=== PATIENT | female | born 1960 | race Caucasian/White ===

== ENCOUNTER 2018-02-04 06:33 | Emergency (ER) | payer OTHER ==
[~2018-02-04] VITALS: Ht 154.9 cm; Wt 48.5 kg
[2018-02-04 06:33] VITALS: BP 157/83
[~2018-02-04 06:33] MED LIST: LAMO100T5 PO; LEVO25TA4 PO; METO5TAB PO; MORP30TA83 PO; MULT1TAB52 PO; OXYC5CAP PO
--- NOTE | 2018-02-04 07:00 | RAD ---
PQRS Compliance Statement: One or more of the following individualized dose reduction techniques were utilized for this examination: 1. Automated exposure control 2. Adjustment of the mA and/or kV according to patient size 3. Use of iterative reconstruction technique CT HEAD WITHOUT CONTRAST History: Body numbness, stroke protocol, hx of stroke x 1, ? in year of stroke Comparison: CT head without contrast, December 02, 2017. Procedure: Axial images are obtained of the head from the skull base through the vertex without IV contrast. Findings: The ventricles and sulci are normal for the patient's age. No mass-effect, midline shift, hemorrhage, extra-axial fluid collection, or obvious acute infarction is identified. Basilar cisterns are patent. Bone windows demonstrate no acute calvarial abnormality. Moderate mucosal thickening left maxillary sinus. No air-fluid level. Mastoid air cells are aerated. Globes and orbits are intact. IMPRESSION: No acute intracranial abnormality. Findings discussed with PAN FERRO at 02/04/2018 6:56 AM. FOR INTERNAL CODING PURPOSES Critical result: RESULT CODE: (C) Electronically signed by: Gerald Echeverria MD (02/04/2018 6:56 AM) [id number]
[2018-02-04] MEDS: IV NORMAL SALINE 1,000ML 1,000 ML IV ONE (07:09)
[2018-02-04 07:27] LABS: BASO % 0 % (0-3); EOS # 0.2 x10^3/uL (0.0-0.7); EOS % 2 % (0-3); HEMATOCRIT 40.1 % (36.0-47.0); HEMOGLOBIN 13.7 g/dL (12.0-15.5); LYMPH # 2.3 x10^3/uL (1.0-4.8); LYMPH % 25 % (24-48); MEAN CORPUSCULAR HEMOGLOBIN 32 pg (25-35); MEAN CORPUSCULAR HGB CONC 34 g/dL (31-37); MEAN CORPUSCULAR VOLUME 95 fL (79-100); MONO # 0.8 x10^3/uL (0.0-1.1); MONO % 9 % (0-9); NEUT # 5.7 x10^3uL (1.8-7.7); NEUT % 63 % (31-73); PLATELET COUNT 412 x10^3/uL (140-400); RED BLOOD COUNT 4.22 x10^6/uL (3.50-5.40); RED CELL DISTRIBUTION WIDTH 15.1 % (11.5-14.5); WHITE BLOOD COUNT 8.9 x10^3/uL (4.0-11.0)
--- NOTE | 2018-02-04 07:27 | RAD ---
Chest AP portable at 0623: Reason for examination: Altered mental status. Comparison is made to previous study dated 12/01/2017. The heart size is normal. Mediastinum is unremarkable. Lung lin are clear. No acute bony abnormalities are seen. Impression: No acute cardiopulmonary disease. Electronically signed by: Tsering Alonzo MD (02/04/2018 7:23 AM) [facility]
[2018-02-04] MEDS ORDERED: MORPHINE SULFATE 2 MG/ML DISP.SYRIN. ONE (07:34)
[2018-02-04] MEDS: diphenhydrAMINE 50 MG/ML VIAL IVP ONE (07:38)
[2018-02-04] MEDS: MORPHINE SULFATE 2 MG/ML DISP.SYRIN. IV ONE (07:38)
[2018-02-04 07:42] LABS: ALBUMIN 3.8 g/dL (3.4-5.0); ALBUMIN/GLOBULIN RATIO 1.3 (1.0-1.7); CREATININE 0.9 mg/dL (0.6-1.0); POTASSIUM 3.7 mmol/L (3.5-5.1); TOTAL BILIRUBIN 0.2 mg/dL (0.2-1.0); TOTAL PROTEIN 6.8 g/dL (6.4-8.2)
[2018-02-04 07:52] LABS: BILIRUBIN,URINE NEG (NEG); CLARITY,URINE CLEAR; COLOR,URINE YELLOW; GLUCOSE,URINE NEG (NEG)
[2018-02-04 07:53] LABS: BACTERIA,URINE 0 /HPF (0-FEW); NITRITE,URINE NEG (NEG); RBC,URINE OCC /HPF (0-2); SQUAMOUS EPITHELIAL CELL,UR OCC /LPF; UROBILINOGEN,URINE 0.2 mg/dL (0.2 mg/dL); WBC,URINE 0 /HPF (0-4)
[2018-02-04 07:58] LABS: AMPHETAMINE/METHAMPHETAMINE NEG (NEG); BARBITURATES POS (NEG); BENZODIAZEPINES NEG (NEG); CANNABINOIDS NEG (NEG); COCAINE NEG (NEG); METHADONE NEG (NEG); OPIATES POS (NEG); PHENCYCLIDINE NEG (NEG)
--- NOTE | 2018-02-04 08:25 | PHYS DOC ---
Past History Past Medical History: Anxiety, CVA, Hypertension, Other Past Surgical History: Cholecystectomy, Other Alcohol Use: None Drug Use: None Adult General Chief Complaint Chief Complaint: WEAKNESS/GENERALIZED HPI HPI 57-year-old female presents with altered mental status. The patient was last known well at 10 PM last night. When she woke up at 5 AM this morning she had bowel incontinence, slurred speech, and lack of coordination. Her who accompanies her states that she had multiple episodes of loose bowel and was unable to get to the toilet. The patient had difficulty standing. He states that her speech was garbled and impossible to understand. The patient is on narcotic pain medications. The states that the last oxycodone that she took was last night. She also took amitriptyline at 5 or 6 PM last night. He does not believe she is taken any medication since that time. He was concerned about the possibility of hydrocodone overdose so he gave her 4 mg of Narcan. She still had altered mental status and lack of bowel control. Her symptoms have improved by the time she got to the hospital. She tells me that she remembers some of the episode but not all the details. She did not notice the change in speech. She denies any additional drug use. At this time, she tells me that she feels "itchy and wants to move constantly". She has not had symptoms like this before. Her only other complaint is recent skin pruritus. She wonders if she is getting bit by something. She has excoriations on her bilateral blood extremities and lower legs. Her does not have these bites. She denies fever or chills. She was feeling well prior to this episode. She has a long history of stomach issues including multiple bowel movements daily. History of gastric bypass. Review of Systems Review of Systems Constitutional: Denies fever or chills [] Eyes: Denies change in visual acuity, redness, or eye pain [] HENT: Denies nasal congestion or sore throat [] Respiratory: Denies cough or shortness of breath [] Cardiovascular: No additional information not addressed in HPI [] GI: Bowel incontinence, loose stools[] : Denies dysuria or hematuria [] Musculoskeletal: Denies back pain or joint pain [] Integument: Denies rash or skin lesions [] Neurologic: Altered mental status, slurred speech, lack of coordination[] Endocrine: Denies polyuria or polydipsia [] All other systems were reviewed and found to be within normal limits, except as documented in this note. Current Medications Current Medications Current Medications Medications (Trade) Dose Ordered Sig/Anai Start Time Stop Time Status Last Admin Dose Admin Sodium Chloride 1,000 ml @ 1,000 mls/hr 1X ONCE 02/04/18 07:15 02/04/18 08:14 02/04/18 07:09 1,000 MLS/HR Allergies Allergies Allergies Coded Allergies Type Severity Reaction Last Updated Verified No Known Allergies Allergy Unknown 12/01/17 Yes Physical Exam Physical Exam Constitutional: Well developed, well nourished, no acute distress, non-toxic appearance. Fidgety. [] HENT: Normocephalic, atraumatic, bilateral external ears normal, oropharynx moist, no oral exudates, nose normal. [] Eyes: PERRLA, EOMI, conjunctiva normal, no discharge. [] Neck: Normal range of motion, no tenderness, supple, no stridor. [] Cardiovascular:Heart rate regular rhythm, no murmur [] Lungs & Thorax: Bilateral breath sounds clear to auscultation [] Abdomen: Bowel sounds normal, soft, no tenderness, no masses, no pulsatile masses. [] Skin: Excoriations on the bilateral upper extremities and lower extremities. No obvious insect bites.[] Back: No tenderness, no CVA tenderness. [] Extremities: No tenderness, no cyanosis, no clubbing, ROM intact, no edema. [] Neurologic: Alert and oriented X 3, moves all extremities, able to stand and ambulate, speech appears normal, answers questions appropriately.[] Psychologic: Affect anxious, judgement normal, mood normal. [] EKG EKG Sinus rhythm, rate 98, normal axis, no ST elevations or depressions.[] Radiology/Procedures Radiology/Procedures [] Impressions: PQRS Compliance Statement: One or more of the following individualized dose reduction techniques were utilized for this examination: 1. Automated exposure control 2. Adjustment of the mA and/or kV according to patient size 3. Use of iterative reconstruction technique CT HEAD WITHOUT CONTRAST History: Body numbness, stroke protocol, hx of stroke x 1, ? in year of stroke Comparison: CT head without contrast, December 02, 2017. Procedure: Axial images are obtained of the head from the skull base through the vertex without IV contrast. Findings: The ventricles and sulci are normal for the patient's age. No mass-effect, midline shift, hemorrhage, extra-axial fluid collection, or obvious acute infarction is identified. Basilar cisterns are patent. Bone windows demonstrate no acute calvarial abnormality. Moderate mucosal thickening left maxillary sinus. No air-fluid level. Mastoid air cells are aerated. Globes and orbits are intact. IMPRESSION: No acute intracranial abnormality. Findings discussed with PAN FERRO at 02/04/2018 6:56 AM. FOR INTERNAL CODING PURPOSES Critical result: RESULT CODE: (C) Electronically signed by: Gerald Echeverria MD (02/04/2018 6:56 AM) [facility] DICTATED AND SIGNED BY: GERALD ECHEVERRIA MD DATE: 02/04/18650 CC: PAN FERRO DO; GAIL,STAFF Chest AP portable at 0623: Reason for examination: Altered mental status. Comparison is made to previous study dated 12/01/2017. The heart size is normal. Mediastinum is unremarkable. Lung lin are clear. No acute bony abnormalities are seen. Impression: No acute cardiopulmonary disease. Electronically signed by: Bettina Car MD (02/04/2018 7:23 AM) [facility] DICTATED AND SIGNED BY: BETTINA CAR MD DATE: 02/04/18720 CC: PAN FERRO DO; GAIL,STAFF Course & Med Decision Making Course & Med Decision Making Pertinent Labs and Imaging studies reviewed. (See chart for details) The patient was taken to the CT scanner as a code stroke based on reported history. The head CT is negative. During my exam, she was able to answer all of my questions. She is moving all extremities. There is no sign of weakness. She does have random excoriations on her arms and legs. I do not see any on her trunk. It's hard to say if these started from insect bites or if she is itching for another reason. It is possible that her restlessness could be due to Reglan , amitriptyline, or withdrawal from opiates. She is on chronic pain medication and the Narcan could be inducing some withdrawal symptoms. Reglan or amitriptyline are also known to cause restlessness. The patient only takes 25 mg of amitriptyline which would not typically cause the rest of her symptoms, but it is possible. Patient had urinary retention in the ED. We placed a Viera and drained 2 L. The patient has had no recent changes in medications. I asked again how much amitriptyline the patient takes an states only 25 mg a day. The patient's urine drug screen was positive for opiates as expected but also barbiturates. The patient is not on any prescription barbiturates. Her labs are unremarkable. Her urinalysis is negative for infection. Her EKG is unremarkable. Her chest x-ray is unremarkable. [] Dragon Disclaimer Dragon Disclaimer This electronic medical record was generated, in whole or in part, using a voice recognition dictation system. Departure Departure: Referrals: NON,STAFF (PCP) PAN FERRO DO Feb 04, 2018 08:25
--- NOTE | 2018-02-04 15:55 | EKG ---
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
== END 2018-02-04 10:00 | disposition home or self-care (01) ==
LOC: ER 06:33
DX: R41.82 Altered mental status, unspecified (principal); R15.9 Full incontinence of feces; R47.81 Slurred speech; T40.2X5A Adverse effect of other opioids, initial encounter; T43.015A Adverse effect of tricyclic antidepressants, initial encounter; F41.9 Anxiety disorder, unspecified; I10 Essential (primary) hypertension; Z86.73 Personal history of transient ischemic attack (TIA), and cerebral infarction without residual deficits; Y92.89 Other specified places as the place of occurrence of the external cause
CPT/HCPCS: 36415; 51702; 70450; 71045; 80053; 80307; 81001; 84484; 85025; 87086; 93005; 96361; 96374; 96375; 99285; J1200; J2270; J7030

== ENCOUNTER 2018-03-07 12:05 | Emergency (ER) | payer OTHER ==
[~2018-03-07] VITALS: Ht 154.9 cm; Wt 47.6 kg
[2018-03-07] MEDS ORDERED: KETOROLAC 60 MG/2 ML VIAL. IM ONE (12:45)
--- NOTE | 2018-03-07 13:33 | RAD ---
CT CERVICAL SPINE WO CONTRAST, CT HEAD AND MAXILLOFACIAL WO Indication: fall two days ago Exposure: One or more of the following individualized dose reduction techniques were utilized for this examination: 1. Automated exposure control 2. Adjustment of the mA and/or kV according to patient size 3. Use of iterative reconstruction technique. Comparison: Prior head CT February 04, 2018. Contrast: None HEAD: Posterior fossa is unremarkable. No evidence of acute intracranial hemorrhage or abnormal extra-axial fluid collection. No evidence of mass effect or midline shift. Ventricles are symmetric in size and configuration. Raymundo-white matter distinction is intact. Visualized orbits are unremarkable. Moderate mucosal thickening left maxillary sinus. No acute calvarial abnormality. Impression:Negative for acute intracranial hemorrhage or mass effect. FACIAL BONES: Nasal bone: Intact Orbital floors: Intact Bones: No evidence of acute or displaced fracture although a specific point of impact is not indicated. Visualized sinuses: Moderate mucosal thickening left maxillary sinus. Globes/Orbits: Unremarkable. Mandible/Maxilla: Dental disease is identified with dental caries. Greatest in the right maxilla molars. There is also mild periapical lucency, at the maxilla bilaterally. Soft tissue: Soft tissue swelling and fatty stranding in the left facial region and extending into the neck may be due to contusion or inflammation. IMPRESSION: 1. No evidence of an acute fracture. 2. Periodontal disease. 3. Left facial inflammation or bruising. 4. Maxillary sinus disease. CERVICAL SPINE: C1 ring: Intact Cervico-occipital junction: Intact C1-C2 relationship: Within normal limits Fracture: No acute fracture identified. Spondylosis: No significant degenerative change. Alignment: Reversal of the normal cervical lordosis, can be due to muscle spasm or positioning. Facets: No evidence of perched or locked facet. Prevertebral soft tissues: No significant swelling or hematoma Thyroid: Symmetric Lung apices: Clear Impression: No evidence of acute fracture or subluxation. Electronically signed by: Neno Montoya MD (03/07/2018 1:30 PM) [facility]
[2018-03-07 13:50] VITALS: BP 138/67
--- NOTE | 2018-03-07 13:52 | PHYS DOC ---
Past History Past Medical History: Anxiety, CVA, Hypertension, Other Past Surgical History: Cholecystectomy, Other Alcohol Use: None Drug Use: None Adult General Chief Complaint Chief Complaint: MECHANICAL FALL HPI HPI Patient is a 57 year old female who presents with coming over fall and facial injury. Patient state she trapped on her dog leash at 3 AM yesterday morning and had a fall on hard wood floor and landed on the left side of her face. Patient denies loss of consciousness. Patient complaining of facial edema and pain and also complaining of headache, neck pain, body ache, nausea, confusion. Patient denies focal neuro deficit fever and chills, vomiting, urine and bowel incontinence. Patient to take her home pain medication for back pain as Excedrin Tylenol with improvement of her pain. Patient does not remember her last tetanus shot but does not want to have immunization in ER. Review of Systems Review of Systems Constitutional: Denies fever or chills [] Eyes: Denies change in visual acuity, redness, or eye pain [] HENT: Denies nasal congestion or sore throat [] Respiratory: Denies cough or shortness of breath [] Cardiovascular: No additional information not addressed in HPI [] GI: Denies abdominal pain, nausea, vomiting, bloody stools or diarrhea [] : Denies dysuria or hematuria [] Musculoskeletal: Denies back pain or joint pain , reports neck pain and myalgia Integument: Denies rash or skin lesions [] Neurologic: Reports headache, denies focal weakness or sensory changes [] Endocrine: Denies polyuria or polydipsia [] All other systems were reviewed and found to be within normal limits, except as documented in this note. Current Medications Current Medications Current Medications Medications (Trade) Dose Ordered Sig/[facility] Start Time Stop Time Status Last Admin Dose Admin Ketorolac Tromethamine (Toradol Im) 60 mg 1X ONCE 03/07/18 12:45 03/07/18 12:46 DC 03/07/18 12:45 60 MG Allergies Allergies Allergies Coded Allergies Type Severity Reaction Last Updated Verified No Known Allergies Allergy Unknown 12/01/17 Yes Physical Exam Physical Exam Constitutional: Well developed, well nourished, mild distress, non-toxic appearance. [] HENT: Normocephalic, left facial mild edema and tenderness without deformity or ecchymosis, bilateral external ears normal, oropharynx moist, no oral exudates, nose normal. [] Eyes: PERRLA, EOMI, conjunctiva normal, no discharge. [] Neck: Normal range of motion, no tenderness, supple, no stridor. [] Cardiovascular:Heart rate regular rhythm, no murmur [] Lungs & Thorax: Bilateral breath sounds clear to auscultation [] Abdomen: Bowel sounds normal, soft, no tenderness, no masses, no pulsatile masses. [] Skin: Warm, dry, no erythema, no rash. [] Back: No tenderness, no CVA tenderness. [] Extremities: No tenderness, no cyanosis, no clubbing, ROM intact, no edema. [] Neurologic: Alert and oriented X 3, normal motor function, normal sensory function, no focal deficits noted. [] Psychologic: Affect normal, judgement normal, mood normal. [] Current Patient Data Vital Signs Vital Signs Date Time Temp Pulse Resp B/P (MAP) Pulse Ox O2 Delivery O2 Flow Rate FiO2 03/07/18 12:31 98.8 96 22 94 Room Air EKG EKG [] Radiology/Procedures Radiology/[place] [address] IMAGING REPORT Signed PATIENT: FRANTZ JOE ACCOUNT: [id number] : 1960 LOCATION: ER AGE: 57 SEX: F EXAM STATUS: REG ER ORD. PHYSICIAN: TONI VAZQUEZ MD REASON: fall PROCEDURE: CT CERVICAL SPINE WO CONTRAST CT CERVICAL SPINE WO CONTRAST, CT HEAD AND MAXILLOFACIAL WO Indication: fall two days ago Exposure: One or more of the following individualized dose reduction techniques were utilized for this examination: 1. Automated exposure control 2. Adjustment of the mA and/or kV according to patient size 3. Use of iterative reconstruction technique. Comparison: Prior head CT February 04, 2018. Contrast: None HEAD: Posterior fossa is unremarkable. No evidence of acute intracranial hemorrhage or abnormal extra-axial fluid collection. No evidence of mass effect or midline shift. Ventricles are symmetric in size and configuration. Raymundo-white matter distinction is intact. Visualized orbits are unremarkable. Moderate mucosal thickening left maxillary sinus. No acute calvarial abnormality. Impression:Negative for acute intracranial hemorrhage or mass effect. FACIAL BONES: Nasal bone: Intact Orbital floors: Intact Bones: No evidence of acute or displaced fracture although a specific point of impact is not indicated. Visualized sinuses: Moderate mucosal thickening left maxillary sinus. Globes/Orbits: Unremarkable. Mandible/Maxilla: Dental disease is identified with dental caries. Greatest in the right maxilla molars. There is also mild periapical lucency, at the maxilla bilaterally. Soft tissue: Soft tissue swelling and fatty stranding in the left facial region and extending into the neck may be due to contusion or inflammation. IMPRESSION: 1. No evidence of an acute fracture. 2. Periodontal disease. 3. Left facial inflammation or bruising. 4. Maxillary sinus disease. CERVICAL SPINE: C1 ring: Intact Cervico-occipital junction: Intact C1-C2 relationship: Within normal limits Fracture: No acute fracture identified. Spondylosis: No significant degenerative change. Alignment: Reversal of the normal cervical lordosis, can be due to muscle spasm or positioning. Facets: No evidence of perched or locked facet. Prevertebral soft tissues: No significant swelling or hematoma Thyroid: Symmetric Lung apices: Clear Impression: No evidence of acute fracture or subluxation. Electronically signed by: Neno Montoya MD (03/07/2018 1:30 PM) [facility] DICTATED AND SIGNED BY: NENO MONTOYA MD DATE: 03/07/18 131 CC: KUNAL LOUIS; TONI VAZQUEZ MD ~ Course & Med Decision Making Course & Med Decision Making Pertinent Imaging studies reviewed. (See chart for details) evaluation of patient in ER showed 57-year-old male patient with a fall and injury to left side of face. Patient had left facial edema without ecchymosis or deformity. Patient had blood pressure of 156/99 at arrival to ER without history of hypertension that gradually decreased to 130s/60s. Patient instructed to record her blood pressure and follow up with her primary care physician with an scheduled appointment tomorrow. Patient treated with Toradol and felt better. Patient does not want pain medication and states she has pain medication for back pain at home. CT of head, cervical spine and facial bones did not show sign of acute problem except for accidental finding of maxillary sinusitis and periodontal disease. Patient psychiatric to quit smoking and continue her home pain medication. Dragon Disclaimer Dragon Disclaimer This electronic medical record was generated, in whole or in part, using a voice recognition dictation system. Departure Departure: Impression: Primary Impression: Facial contusion Additional Impressions: Concussion Head injury Fall at home Tobacco abuse Tobacco abuse counseling Elevated blood pressure reading without diagnosis of hypertension Disposition: HOME, SELF-CARE (@1349) Condition: IMPROVED Referrals: KUNAL LOUIS (PCP) Patient Instructions: Concussion and Brain Injury, Facial or Scalp Contusion, Fall Prevention and Home Safety, Smoking Cessation, Tips For Success Additional Instructions: Apply ice on the affected area Follow-up with your primary care physician as scheduled tomorrow Return to ER if not getting better Continue home pain medication Record her blood pressure and follow-up with your primary care physician Problem Qualifiers TONI VAZQUEZ MD Mar 07, 2018 13:52
== END 2018-03-07 13:55 | disposition home or self-care (01) ==
LOC: ER 12:05
DX: S06.0X0A Concussion without loss of consciousness, initial encounter (principal); S00.83XA Contusion of other part of head, initial encounter; M54.2 Cervicalgia; I10 Essential (primary) hypertension; F41.9 Anxiety disorder, unspecified; Z86.73 Personal history of transient ischemic attack (TIA), and cerebral infarction without residual deficits; Z72.0 Tobacco use; Z71.6 Tobacco abuse counseling; W18.30XA Fall on same level, unspecified, initial encounter; Y93.89 Activity, other specified; Y92.098 Other place in other non-institutional residence as the place of occurrence of the external cause; Y99.8 Other external cause status
CPT/HCPCS: 70450; 70486; 72125; 96372; 99284; J1885

== ENCOUNTER 2018-05-04 16:26 | Observation (INO) | payer OTHER ==
[~2018-05-04] VITALS: Ht 154.9 cm; Wt 47.7 kg
[2018-05-04 16:56] LABS: BASO % 1 % (0-3); EOS # 0.2 x10^3/uL (0.0-0.7); EOS % 3 % (0-3); HEMATOCRIT 39.8 % (36.0-47.0); HEMOGLOBIN 13.2 g/dL (12.0-15.5); LYMPH # 1.7 x10^3/uL (1.0-4.8); LYMPH % 33 % (24-48); MEAN CORPUSCULAR HEMOGLOBIN 32 pg (25-35); MEAN CORPUSCULAR HGB CONC 33 g/dL (31-37); MEAN CORPUSCULAR VOLUME 97 fL (79-100); MONO # 0.4 x10^3/uL (0.0-1.1); MONO % 7 % (0-9); NEUT # 2.8 x10^3uL (1.8-7.7); NEUT % 56 % (31-73); PLATELET COUNT 322 x10^3/uL (140-400); RED BLOOD COUNT 4.11 x10^6/uL (3.50-5.40); RED CELL DISTRIBUTION WIDTH 15.3 % (11.5-14.5); WHITE BLOOD COUNT 5.1 x10^3/uL (4.0-11.0)
[2018-05-04] MEDS ORDERED: IV NORMAL SALINE 1,000ML 1,000 ML IV SCH (17:00)
[2018-05-04 17:08] LABS: CALCIUM 8.8 mg/dL (8.5-10.1); DIRECT BILIRUBIN 0.1 mg/dL (0.0-0.2); GFR 57.6; MAGNESIUM 2.3 mg/dL (1.8-2.4); TOTAL BILIRUBIN 0.2 mg/dL (0.2-1.0); TOTAL PROTEIN 7.4 g/dL (6.4-8.2)
--- NOTE | 2018-05-04 17:17 | RAD ---
PQRS Compliance statement: One or more of the following individualized dose reduction techniques were utilized for this examination: 1. Automated exposure control. 2. Adjustment of the mA and/or kV according to patient size. 3. Use of iterative reconstruction technique. Indication:DIZZINESS, EXPRESSED APHASIA. HX OF RECENT STROKE TECHNIQUE: CT head without IV contrast COMPARISON:03/07/2018 FINDINGS: No pathologic extra-axial or intra-axial fluid collection. The ventricles and basal cisterns are within normal limits. No acute intracranial bleed. No focal loss of lomax-white differentiation. The visualized orbits are within normal limits. No suspicious calvarial lesion. Visualized paranasal sinuses and mastoid air cells are clear. IMPRESSION: No acute intracranial process. If concern for acute ischemic stroke is high, please consider MRI brain. Electronically signed by: Rafa Venegas DO (05/04/2018 5:13 PM) [facility]
[2018-05-04] MEDS ORDERED: ASPIRIN 325 MG TABLET PO ONE (17:45)
--- NOTE | 2018-05-04 17:51 | PHYS DOC ---
Past History Past Medical History: Anxiety, CVA, Hypertension, Other Past Surgical History: Cholecystectomy, Hysterectomy, Oophorectomy, Other Alcohol Use: None Drug Use: None Adult General Chief Complaint Chief Complaint: NEURO SYMPTOMS/DEFICITS [facility] HPI Patient is a 57-year-old female who presents with a few day history of dizziness , forgetfulness and expressive aphasia. Patient's indicates that symptoms have just been progressively worsening. He states that the other night they were trying to go out to dinner and she kept going into the bedroom with intention to get dressed but would come back out, having forgotten to get dressed. He states that it took almost an hour and a half for patient to actually get dressed for dinner. He states that she has also been having a difficult time finding specific words. Patient indicates that she has been feeling very off balance and patient and indicate the symptoms have gotten a lot worse throughout today. Patient states that she just feels like she is going to fall. She denies any lateralizing weakness. She also indicates that she is having difficulty with coordination. She states that she is able to grasp things without difficulty but when she goes to set them down, things are not set down where she is intended and sometimes they dropped to the floor. Review of Systems Review of Systems Constitutional: Denies fever or chills [] Eyes: Denies change in visual acuity, redness, or eye pain [] Respiratory: Denies cough or shortness of breath [] Cardiovascular: No additional information not addressed in HPI [] GI: Denies abdominal pain, nausea, vomiting, bloody stools or diarrhea [] Neurologic: Complains of headache, focal weakness or sensory changes. Complains of disequilibrium and expressive aphasia. [] All other systems were reviewed and found to be within normal limits, except as documented in this note. Current Medications Current Medications Current Medications Medications (Trade) Dose Ordered Sig/[facility] Start Time Stop Time Status Last Admin Dose Admin Aspirin (Mya Aspirin) 325 mg 1X ONCE 05/04/18 17:45 05/04/18 17:46 UNV Sodium Chloride 1,000 ml @ 1,000 mls/hr Q1H 05/04/18 17:00 05/04/18 17:59 05/04/18 16:59 1,000 MLS/HR Allergies Allergies Allergies Coded Allergies Type Severity Reaction Last Updated Verified No Known Allergies Allergy Unknown 12/01/17 Yes Physical Exam Physical Exam Constitutional: Well developed, well nourished, no acute distress, non-toxic appearance. [] HENT: Normocephalic, atraumatic, bilateral external ears normal, oropharynx moist, no oral exudates, nose normal. [] Eyes: PERRLA, EOMI, conjunctiva normal, no discharge. [] Neck: Normal range of motion, no tenderness, supple, no stridor. [] Cardiovascular: Regular rate and rhythm [] Lungs & Thorax: Bilateral breath sounds clear to auscultation [] Abdomen: Bowel sounds normal, soft, no tenderness. [] Skin: Warm, dry, no erythema, no rash. [] Extremities: No tenderness, no cyanosis, no clubbing, ROM intact, no edema. [] Neurologic: Alert and oriented X 3, normal motor function, normal sensory function. [] Current Patient Data Vital Signs Vital Signs Date Time Temp Pulse Resp B/P (MAP) Pulse Ox O2 Delivery O2 Flow Rate FiO2 05/04/18 17:16 69 17 143/82 (102) 99 Room Air 05/04/18 16:26 98.1 Lab Results Laboratory Tests Test 05/04/18 16:40 White Blood Count 5.1 x10^3/uL (4.0-11.0) Red Blood Count 4.11 x10^6/uL (3.50-5.40) Hemoglobin 13.2 g/dL (12.0-15.5) Hematocrit 39.8 % (36.0-47.0) Mean Corpuscular Volume 97 fL (79-100) Mean Corpuscular Hemoglobin 32 pg (25-35) Mean Corpuscular Hemoglobin Concent 33 g/dL (31-37) Red Cell Distribution Width 15.3 % (11.5-14.5) H Platelet Count 322 x10^3/uL (140-400) Neutrophils (%) (Auto) 56 % (31-73) Lymphocytes (%) (Auto) 33 % (24-48) Monocytes (%) (Auto) 7 % (0-9) Eosinophils (%) (Auto) 3 % (0-3) Basophils (%) (Auto) 1 % (0-3) Neutrophils # (Auto) 2.8 x10^3uL (1.8-7.7) Lymphocytes # (Auto) 1.7 x10^3/uL (1.0-4.8) Monocytes # (Auto) 0.4 x10^3/uL (0.0-1.1) Eosinophils # (Auto) 0.2 x10^3/uL (0.0-0.7) Basophils # (Auto) 0.0 x10^3/uL (0.0-0.2) Sodium Level 138 mmol/L (136-145) Potassium Level 4.0 mmol/L (3.5-5.1) Chloride Level 100 mmol/L (98-107) Carbon Dioxide Level 29 mmol/L (21-32) Anion Gap 9 (6-14) Blood Urea Nitrogen 10 mg/dL (7-20) Creatinine 1.0 mg/dL (0.6-1.0) Estimated GFR (Cockcroft-Gault) 57.6 Glucose Level 86 mg/dL (70-99) Calcium Level 8.8 mg/dL (8.5-10.1) Magnesium Level 2.3 mg/dL (1.8-2.4) Total Bilirubin 0.2 mg/dL (0.2-1.0) Direct Bilirubin 0.1 mg/dL (0.0-0.2) Aspartate Amino Transferase (AST) 17 U/L (15-37) Alanine Aminotransferase (ALT) 18 U/L (14-59) Alkaline Phosphatase 90 U/L (46-116) Total Protein 7.4 g/dL (6.4-8.2) Albumin 4.0 g/dL (3.4-5.0) EKG EKG EKG demonstrates normal sinus rhythm with rate of 77.[] Radiology/Procedures Radiology/Procedures [] Impressions: CT scan of head without demonstrates no acute intracranial abnormalities. Course & Med Decision Making Course & Med Decision Making Pertinent Labs and Imaging studies reviewed. (See chart for details) Patient's nurse has performed NIH stroke scale and findings recorded under her documentation with rating of 3. Upon completion of workup, findings discussed with patient and family. I did make recommendation for transfer patient to another facility such as [facility] as this facility does not have access to MRI. Patient's acknowledges understanding that we do not have MRI machine; however, he indicates that because of the government shut down, they have not been able to get a paycheck, and he is not able to travel to [place] or other facilities. Patient and family requesting to remain at this facility. I did discuss patient' s case with Dr. Mendez and he agrees with plan to obtain CT angiogram of the head and the neck and reassess patient in the morning. Patient's case was additionally discussed with Dr. Borges, and patient will be admitted under his care. Dragon Disclaimer Dragon Disclaimer This electronic medical record was generated, in whole or in part, using a voice recognition dictation system. Departure Departure: Impression: Primary Impression: CVA (cerebral vascular accident) Disposition: ADMITTED INPATIENT Admitting Physician: Bridger Borges Condition: GOOD Referrals: KUNAL LOUIS (PCP) Problem Qualifiers Primary Impression: CVA (cerebral vascular accident) CVA mechanism: unspecified Qualified Codes: I63.9 - Cerebral infarction, unspecified HIMA PADGETT Jr. DO May 04, 2018 17:51
[2018-05-04] MEDS ORDERED: IOHEXOL 300 MG/ML 75 ML VIAL. IV ONE (18:00)
--- NOTE | 2018-05-04 18:04 | EKG ---
[address] [address] Test Date: 2018-05-04 Test Time: 16:52:51 Pat Name: FRANTZ JOE Department: Room: Gender: F Laboratory Clerk: KERI : 1960 Requested By: HIMA PADGETT Order Number: [id number] Reading MD: Nicholas Doe MD Measurements Intervals [place] Rate: 77 P: 50 FL: 160 QRS: 36 QRSD: 84 T: 38 QT: 380 QTc: 432 Interpretive Statements SINUS RHYTHM Electronically Signed On 05-11-2018 8:56:33 BACTERIOLOGY PROFESSOR by Nicholas Doe MD
[2018-05-04 18:38] LABS: BACTERIA,URINE 0 /HPF (0-FEW); BILIRUBIN,URINE NEG (NEG); CLARITY,URINE CLEAR; COLOR,URINE STRAW; GLUCOSE,URINE NEG (NEG); NITRITE,URINE NEG (NEG); UROBILINOGEN,URINE 0.2 mg/dL (0.2 mg/dL); WBC,URINE 0 /HPF (0-4)
--- NOTE | 2018-05-04 19:12 | RAD ---
CT arteriogram the carotid arteries, CT arteriogram of the brain. HISTORY: Expressive aphasia, dizziness, ataxia, history recent stroke CT arteriogram the carotid arteries was done using 75 mL Omnipaque 300 contrast. Multiplanar MIP images were reconstructed. Three-dimensional images were reconstructed. Upper aspect of the lungs are clear. Thyroid is homogeneous. Origins of the great vessels are widely patent. The left vertebral artery is dominant compared to the right vertebral. There is only a tiny communication from the right vertebral to the basilar artery. Common carotid arteries are widely patent. Carotid bifurcations are patent without stenosis. Internal carotid arteries are tortuous. IMPRESSION: 1. Small right vertebral with normal left vertebral. 2. No stenosis at the carotid bifurcations. PQRS Compliance Statement - Stenosis calculations for CT are based upon measurement of the distal ICA diameter in accordance with the NASCET methodology. End impression CT arteriogram of the brain CT arteriogram of the brain was done in conjunction with the CT arteriogram the carotid arteries with the same contrast. Sagittal and coronal MIP images were reconstructed. Three-dimensional images were reconstructed. There is a tiny communication from the right vertebral to the basilar artery. Most of the right vertebral flow is into the PICA. There is a normal left vertebral which supplies flow to a normal-appearing basilar artery. Both posterior cerebral arteries have their main supply from the basilar artery and are normal in appearance. The intracranial internal carotid arteries are patent on each side. There is a normal anterior communicating artery. Anterior cerebral arteries are normal. Right middle cerebral artery is normal. Left middle cerebral is unremarkable. There is no major vessel occlusion. Intracranial veins are patent. There is no intracranial mass identified or shift of the midline. Ventricles are normal in size. Sinuses are clear. IMPRESSION: 1. No major vessel occlusion noted intracranially. 2. No mass or shift of the midline noted or pathologic enhancement. PQRS Compliance Statement: One or more of the following individualized dose reduction techniques were utilized for this examination: 1. Automated exposure control 2. Adjustment of the mA and/or kV according to patient size 3. Use of iterative reconstruction technique Electronically signed by: Gabo Viveros MD (05/04/2018 7:07 PM) [facility]
[2018-05-04 19:35] VITALS: BP 146/87
[2018-05-04] MEDS ORDERED: NICOTINE 21MG PATCH. TD PRN (19:45)
[2018-05-04] MEDS ORDERED: OXYC10TA PO (19:54)
[2018-05-04] MEDS ORDERED: PANT40TA5 PO (19:54)
[2018-05-04] MEDS ORDERED: NORT25CA PO (19:54)
[2018-05-04] MEDS ORDERED: ZOLP10TA4 PO (19:54)
[2018-05-04] MEDS ORDERED: oxyCODONE IR 5 MG TABLET PO PRN (20:15)
[2018-05-04] MEDS ORDERED: NORTRIPTYLINE 25 MG CAPSULE PO SCH (21:00)
[2018-05-04] MEDS ORDERED: ZOLPIDEM 5 MG TABLET. PO SCH (21:00)
[2018-05-04] MEDS: MORPHINE ER 30 MG TABLET.ER PO SCH (21:28)
[2018-05-04] MEDS: lamoTRIgine 100 MG TABLET. PO SCH (21:28)
[2018-05-05 00:55] VITALS: BP 131/84
[2018-05-05 05:55] VITALS: BP 102/64
[2018-05-05] MEDS ORDERED: LEVOTHYROXINE 25 MCG TABLET. PO SCH (06:00)
[2018-05-05] MEDS ORDERED: PANTOPRAZOLE 40 MG TABLET. PO SCH (07:30)
[2018-05-05] MEDS: lamoTRIgine 100 MG TABLET. PO SCH (08:08)
[2018-05-05] MEDS: MORPHINE ER 30 MG TABLET.ER PO SCH (08:08)
[2018-05-05] MEDS ORDERED: MULTIVITAMIN with MINERAL TABLET. PO SCH (09:00)
--- NOTE | 2018-05-10 11:26 | CONS ---
DATE OF CONSULTATION: 05/05/2018 REQUESTING PHYSICIAN: Bridger Borges MD REASON FOR CONSULTATION: Rule out TIA versus stroke. HISTORY OF PRESENT ILLNESS: This is a 57-year-old right-handed female, who was admitted to the Emergency Room after she presented with few days history of dizziness, forgetfulness and difficulty to finding words. According to the patient, she had an episode of forgetfulness the day before admission and had difficulty to get dressed going to dinner. She also complains of impaired balance and tendency to fall, but she has not had any fall recently. The patient also complains of chronic radicular lower back pain and has difficulty with coordination. She has been suffering from generalized headaches, but she denies nausea, vomiting, photophobia, or phonophobia. The patient was investigated extensively in the Emergency Room including head CT scan, which did not showed any acute intracranial process. CT angio of the head and neck revealed no evidence of significant arterial occlusion or aneurysms. According to the patient she had stroke symptoms and she was admitted to [facility] and was given TPA last year, which resolved her symptoms. She has been taking baby aspirin daily since then. REVIEW OF SYSTEMS: Currently, the patient complains of right temporal headaches. She denies chest pain, shortness of breath or palpitation, dysarthria or dysphagia. PAST MEDICAL HISTORY: Significant for stroke in 2018 resulted in aphasia, which result with TPA. History of hypothyroidism, hypertension, anxiety, seizure in 2011 for which she received Lamictal, TIA, headaches, irritable bowel syndrome, chronic low back pain, chronic tobacco use, GERD. PAST SURGICAL HISTORY: Significant for gastric bypass surgery. She lost approximately 100 pounds, hysterectomy, oophorectomy, salpingectomy, right total knee replacement. SOCIAL HISTORY: The patient is . She has two children. She denies smoking. She drinks alcohol occasionally. She denies illegal drug use. CURRENT HOME MEDICATIONS: Lamictal 100 mg b.i.d., levothyroxine 25 mcg p.o. daily, morphine sulfate 30 mg b.i.d., multivitamins, nortriptyline 25 mg at bedtime, oxycodone 10 mg t.i.d., pantoprazole 40 mg daily and zolpidem 10 mg at bedtime for insomnia. ALLERGIES: No known drug allergies. FAMILY HISTORY: Noncontributory. REVIEW OF SYSTEMS: A 10-point review of system was performed consistent with right temporal headaches without nausea, vomiting, photophobia, phonophobia, chronic back pain and forgetfulness. PHYSICAL EXAMINATION: GENERAL: A well-developed, well-nourished female, in no acute distress. She weighs 105 pounds. VITAL SIGNS: Blood pressure 102/64, respiratory rate 18, pulse is 77 and regular, temperature is 98.5, oxygen saturation 95% on room air. HEENT: Normocephalic, atraumatic, otherwise unremarkable. NECK: Supple. Negative for carotid bruit, lymphadenopathy or thyromegaly. LUNGS: Clear to A and P. CARDIOVASCULAR: Regular rate and rhythm. Normal S1, S2. There is no S3, S4, or murmur. ABDOMEN: Soft, bowel sounds positive. EXTREMITIES: Negative for cyanosis, clubbing or edema. NEUROLOGIC: Cranial nerves intact. Mental status: The patient is alert and oriented x 3. Speech is fluent. There is no language dysfunction. Memory judgement and obstructive thinking are normal. The patient denies hallucination or delusion. Cranial nerves: Visual lin are full. The pupils are reactive to light and accommodation and extraocular movements are intact. There is no nystagmus. There is no facial motor or sensory deficit. Hearing is intact bilaterally. It is elevated symmetrically. Sternocleidomastoid muscles above four bilaterally. The patient had shortness of breath, tongue in the midline without fasciculation or atrophy. Motor examination: No focal muscle. Sensory exam reveals normal pinprick, light touch and position senses. Deep tendon reflexes were symmetric and hypoactive. Gait and coordination are normal. LABORATORY DATA: CBC reveals white blood cells of 5.1 thousand, hemoglobin 13.2, hematocrit 39.8, platelet count at 322,000. Chemistries reveal sodium 138, potassium of 4, chloride of 100, CO2 of 29, BUN 10, creatinine 1, glucose is 86, calcium 8.8. Liver enzymes are normal. Urinalysis is negative for urinary tract infections. CT scan revealed no evidence of acute intracranial process. Head and neck CT angio revealed no significant arterial stenosis or aneurysms. IMPRESSION: 1. History of multiple neurological symptoms consistent with possible transient ischemic attack - resolved with normal head CT scan and CT angio and no focal neurological deficit. 2. Chronic headaches, probably tension type. 3. Multiple medical problems include seizure disorder, chronic radicular lower back pain, hypothyroidism, GERD, anxiety, depression. RECOMMENDATIONS: 1. Continue with current management initiated by Dr. Borges. 2. We will arrange for EEG, EMG of the lower extremities to rule out lumbosacral radiculopathy versus intra neuropathy in the lower extremities. M Simon PHILIPPE MD DR: SUSANA/arsalan JOB#: [id number] / [id number]
== END 2018-05-05 10:55 | disposition home or self-care (01) ==
LOC: ER 16:26 → 1 SOUTH 19:08 → INTOOBSV 19:08
PROVIDERS: ADMIT Internal Medicine; ATTEND Internal Medicine
DX: R47.01 Aphasia (principal); E03.9 Hypothyroidism, unspecified; F32.9 Major depressive disorder, single episode, unspecified; K21.9 Gastro-esophageal reflux disease without esophagitis; K58.9 Irritable bowel syndrome, unspecified; I10 Essential (primary) hypertension; M54.9 Dorsalgia, unspecified; G89.29 Other chronic pain; G40.909 Epilepsy, unspecified, not intractable, without status epilepticus; F41.9 Anxiety disorder, unspecified; I69.320 Aphasia following cerebral infarction; Z79.899 Other long term (current) drug therapy; Z90.710 Acquired absence of both cervix and uterus
CPT/HCPCS: 36415; 70450; 70496; 70498; 80048; 80061; 80076; 81001; 83735; 85025; 93005; 96360; 96361; 99284; 99406; G0378; Q9967; G0379; 99285-25; J7030

== ENCOUNTER 2018-05-28 21:55 | Emergency (ER) | payer OTHER ==
[~2018-05-28] VITALS: Ht 154.9 cm; Wt 47.6 kg
[~2018-05-28 21:55] MED LIST changes: +NORT25CA PO; +OXYC10TA PO; +PANT40TA5 PO; +ZOLP10TA4 PO
--- NOTE | 2018-05-28 23:47 | RAD ---
CT head without contrast dated 05/28/2018. Comparison made to 05/04/2018. Clinical indication: Pain after fall. Headache. TECHNIQUE: Contiguous axial imaging the head was performed from skull base to vertex. No contrast administered. FINDINGS: Ventricles and sulci are mildly prominent for age. No midline shift or mass effect. Brain parenchyma is of normal attenuation. No hemorrhage or extra-axial collection. Posterior fossa and brainstem unremarkable. Visualized paranasal sinuses and mastoid air cells are clear. No apparent calvarial abnormality. IMPRESSION: 1. No evidence of acute intracranial hemorrhage or mass. 2. Mild atrophy for age. Electronically signed by: Neno Tineo MD (05/28/2018 11:44 PM) [facility]
--- NOTE | 2018-05-29 | PHYS DOC ---
Adult General Chief Complaint Chief Complaint headache HPI HPI 57 years old female presented to the emergency department with headache stated similar to the my previous migraines however he got worse after fell and hit my head this happened 4 days ago she contacted her primary care provider who advised her to come to the emergency department for CT scan to rule out intracranial hemorrhage Patient described her headache as throbbing headache all over her head associate with nausea and vomiting similar to the previous migraines headache rated had headache 7 out of 10 Review of Systems Review of Systems Constitutional: Denies fever or chills [] Eyes: Denies change in visual acuity, redness, or eye pain [] HENT: Denies nasal congestion or sore throat [] Respiratory: Denies cough or shortness of breath [] Cardiovascular: No additional information not addressed in HPI [] GI: Denies abdominal pain, nausea, vomiting, bloody stools or diarrhea [] : Denies dysuria or hematuria [] Musculoskeletal: Denies back pain or joint pain [] Integument: Denies rash or skin lesions [] Neurologic: Denies , focal weakness or sensory changes [] Endocrine: Denies polyuria or polydipsia [] All other systems were reviewed and found to be within normal limits, except as documented in this note. Allergies Allergies Allergies Coded Allergies Type Severity Reaction Last Updated Verified No Known Allergies Allergy Unknown 12/01/17 Yes Physical Exam Physical Exam Constitutional: Well developed, well nourished, no acute distress, non-toxic appearance. [] HENT: Normocephalic, atraumatic, bilateral external ears normal, oropharynx moist, no oral exudates, nose normal. [] Eyes: PERRLA, EOMI, conjunctiva normal, no discharge. [] Neck: Normal range of motion, no tenderness, supple, no stridor. [] Cardiovascular:Heart rate regular rhythm, no murmur [] Lungs & Thorax: Bilateral breath sounds clear to auscultation [] Abdomen: Bowel sounds normal, soft, no tenderness, no masses, no pulsatile masses. [] Skin: Warm, dry, no erythema, no rash. [] Back: No tenderness, no CVA tenderness. [] Extremities: No tenderness, no cyanosis, no clubbing, ROM intact, no edema. [] Neurologic: Alert and oriented X 3, normal motor function, normal sensory function, no focal deficits noted. [] Psychologic: Affect normal, judgement normal, mood normal. [] Current Patient Data Vital Signs Vital Signs Date Time Temp Pulse Resp B/P (MAP) Pulse Ox O2 Delivery O2 Flow Rate FiO2 05/28/18 22:22 99 20 95 Room Air EKG EKG [] Radiology/Procedures Radiology/Procedures [] Course & Med Decision Making Course & Med Decision Making Pertinent Labs and Imaging studies reviewed. (See chart for details) [] Final Impression Final Impression [] Problems: (1) Headache Qualifiers: Qualified Codes: R51 - Headache Dragon Disclaimer Dragon Disclaimer This electronic medical record was generated, in whole or in part, using a voice recognition dictation system. MELISSA AWAD MD May 29, 2018 00:00
[2018-05-29] MEDS: PROCHLORPERAZINE 10 MG/2 ML VIAL. IM ONE (00:17)
[2018-05-29] MEDS: KETOROLAC 60 MG/2 ML VIAL. IM ONE (00:17)
[2018-05-29] MEDS: diphenhydrAMINE 50 MG/ML VIAL IM ONE (00:17)
[2018-05-29 00:30] VITALS: BP 125/80
[2018-07-10] MEDS ORDERED: VANC125C3 PO (14:53)
[2018-07-10] MEDS ORDERED: HYDR-2155 PO (14:54)
[2018-07-10] MEDS ORDERED: LORA0.5T PO (14:54)
== END 2018-05-29 00:42 | disposition home or self-care (01) ==
LOC: ER 21:55
DX: R51 Headache (principal); R11.2 Nausea with vomiting, unspecified; W18.09XA Striking against other object with subsequent fall, initial encounter; Y93.89 Activity, other specified; Y92.89 Other specified places as the place of occurrence of the external cause; Y99.8 Other external cause status
CPT/HCPCS: 70450; 96372; 99284; J0780; J1200; J1885

== ENCOUNTER 2018-06-27 11:15 | Emergency (ER) | payer OTHER ==
[~2018-06-27] VITALS: Ht 154.9 cm; Wt 51.9 kg
[2018-06-27] MEDS ORDERED: IV NORMAL SALINE 1,000ML 1,000 ML IV ONE (12:15)
[2018-06-27] MEDS ORDERED: KETOROLAC 30 MG/ML VIAL. IV ONE (12:30)
[2018-06-27] MEDS ORDERED: diphenhydrAMINE 50 MG/ML VIAL IVP ONE (12:30)
[2018-06-27] MEDS ORDERED: METOCLOPRAMIDE HCL 10 MG/2 ML VIAL. IV ONE (12:30)
[2018-06-27 12:58] LABS: BASO # 0.1 x10^3/uL (0.0-0.2); BASO % 1 % (0-3); EOS # 0.1 x10^3/uL (0.0-0.7); EOS % 0 % (0-3); HEMATOCRIT 39.5 % (36.0-47.0); HEMOGLOBIN 13.2 g/dL (12.0-15.5); LYMPH # 1.7 x10^3/uL (1.0-4.8); LYMPH % 12 % (24-48); MEAN CORPUSCULAR HEMOGLOBIN 31 pg (25-35); MEAN CORPUSCULAR HGB CONC 34 g/dL (31-37); MEAN CORPUSCULAR VOLUME 93 fL (79-100); MONO # 0.8 x10^3/uL (0.0-1.1); MONO % 6 % (0-9); NEUT # 11.1 x10^3uL (1.8-7.7); NEUT % 81 % (31-73); PLATELET COUNT 519 x10^3/uL (140-400); RED BLOOD COUNT 4.23 x10^6/uL (3.50-5.40); RED CELL DISTRIBUTION WIDTH 15.4 % (11.5-14.5); WHITE BLOOD COUNT 13.7 x10^3/uL (4.0-11.0)
[2018-06-27] MEDS ORDERED: HYDR25TA PO (12:58)
[2018-06-27] MEDS ORDERED: MELO15TA23 PO (12:58)
[2018-06-27] MEDS ORDERED: TIZA4TAB PO (12:58)
--- NOTE | 2018-06-27 13:00 | PHYS DOC ---
Past History Past Medical History: CVA Past Surgical History: Cholecystectomy, Hysterectomy, Other Alcohol Use: None Drug Use: None Adult General Chief Complaint Chief Complaint: HEADACHE HPI HPI 57-year-old female presents with headache and anxiety. The patient has a history of migraines. She states that this headache feels like her usual migraines. The patient is her medications, because her took them when he left town to go to detox and rehabilitation. The patient her stands that I cannot refill her controlled substances like Ambien and Xanax. She is wondering if there is something for her anxiety that is a noncontrolled substance. She would also like a short course of meloxicam and a muscle relaxer until she gets into a new primary care physician at the end of the week. Patient denies any recent trauma. She has been packing up her household and has generalized muscle aches in addition to her chronic pain. She denies fever or chills. Review of Systems Review of Systems Constitutional: Denies fever or chills [] Eyes: Denies change in visual acuity, redness, or eye pain [] HENT: Denies nasal congestion or sore throat [] Respiratory: Denies cough or shortness of breath [] Cardiovascular: No additional information not addressed in HPI [] GI: Denies abdominal pain, nausea, vomiting, bloody stools or diarrhea [] : Denies dysuria or hematuria [] Musculoskeletal: Low back pain. No joint pain [] Integument: Denies rash or skin lesions [] Neurologic: Headache. Denies focal weakness or sensory changes [] Endocrine: Denies polyuria or polydipsia [] All other systems were reviewed and found to be within normal limits, except as documented in this note. Current Medications Current Medications Current Medications Medications (Trade) Dose Ordered Sig/[facility] Start Time Stop Time Status Last Admin Dose Admin Diphenhydramine HCl (Benadryl) 25 mg 1X ONCE 06/27/18 12:30 06/27/18 12:31 DC 06/27/18 12:27 25 MG Ketorolac Tromethamine (Toradol 30mg Vial) 30 mg 1X ONCE 06/27/18 12:30 06/27/18 12:31 DC 06/27/18 12:27 30 MG Metoclopramide HCl (Reglan Vial) 10 mg 1X ONCE 06/27/18 12:30 06/27/18 12:31 DC 06/27/18 12:28 10 MG Sodium Chloride 1,000 ml @ 1,000 mls/hr 1X ONCE 06/27/18 12:15 06/27/18 13:14 06/27/18 12:30 1,000 MLS/HR Allergies Allergies Allergies Coded Allergies Type Severity Reaction Last Updated Verified No Known Allergies Allergy Unknown 12/01/17 Yes Physical Exam Physical Exam Constitutional: Well developed, well nourished, no acute distress, non-toxic appearance. [] HENT: Normocephalic, atraumatic, bilateral external ears normal, oropharynx moist, no oral exudates, nose normal. [] Eyes: PERRLA, EOMI, conjunctiva normal, no discharge. [] Neck: Normal range of motion, no tenderness, supple, no stridor. [] Cardiovascular:Heart rate regular rhythm, no murmur [] Lungs & Thorax: Bilateral breath sounds clear to auscultation [] Abdomen: Bowel sounds normal, soft, no tenderness, no masses, no pulsatile masses. [] Skin: Warm, dry, no erythema, no rash. [] Back: Right-sided paraspinal lumbar tenderness[] Extremities: No tenderness, no cyanosis, no clubbing, ROM intact, no edema. [] Neurologic: Alert and oriented X 3, normal motor function, normal sensory function, no focal deficits noted. [] Psychologic: Affect normal, judgement normal, mood anxious. [] Current Patient Data Vital Signs Vital Signs Date Time Temp Pulse Resp B/P (MAP) Pulse Ox O2 Delivery O2 Flow Rate FiO2 06/27/18 11:31 98.4 84 20 98 Room Air EKG EKG [] Radiology/Procedures Radiology/Procedures [] Course & Med Decision Making Course & Med Decision Making Pertinent Labs and Imaging studies reviewed. (See chart for details) I have given the patient 1 L normal saline, 25 mg of Benadryl, 30 mg of Toradol , and 10 mg of Reglan for her headache. We will refill her tizanidine and meloxicam. I will give her hydroxyzine for sleep aid and anxiety medicine. The patient is feeling better at this time. She is stable for discharge. [] Dragon Disclaimer Dragon Disclaimer This electronic medical record was generated, in whole or in part, using a voice recognition dictation system. Departure Departure: Impression: Primary Impression: Headache Additional Impressions: Anxiety Lumbar strain Disposition: 01 HOME, SELF-CARE Condition: STABLE Referrals: KUNAL LOUIS MD (PCP) Patient Instructions: Anxiety and Panic Attacks, [id number], Migraine Headache, Mfqi-op-Oxep Scripts Meloxicam (MELOXICAM) 15 Mg Tablet 1 TAB PO DAILY PRN for PAIN, #30 TAB Prov: PAN FERRO DO 06/27/18 Tizanidine Hcl (TIZANIDINE HCL) 4 Mg Tablet 4 MG PO PRN Q8HRS PRN for MUSCLE SPASMS, #30 TAB Prov: PAN FERRO DO 06/27/18 Hydroxyzine Hcl (HYDROXYZINE HCL) 25 Mg Tablet 1 TAB PO TID PRN for ANXIETY, #30 TAB This medication can also be taken as a sleep aid. Take 2 of them 30 minutes before bed. Prov: PAN FERRO DO 06/27/18 Problem Qualifiers Primary Impression: Headache Headache type: tension-type Headache chronicity pattern: acute headache Intractability: not intractable Qualified Codes: G44.209 - Tension-type headache, unspecified, not intractable Additional Impressions: Lumbar strain Encounter type: initial encounter Qualified Codes: S39.012A - Strain of muscle, fascia and tendon of lower back, initial encounter PAN FERRO DO Jun 27, 2018 13:00
[2018-06-27 13:12] LABS: ALBUMIN 3.5 g/dL (3.4-5.0); ALBUMIN/GLOBULIN RATIO 1.1 (1.0-1.7); CALCIUM 9.1 mg/dL (8.5-10.1); CREATININE 0.8 mg/dL (0.6-1.0); GFR 74.5; POTASSIUM 3.9 mmol/L (3.5-5.1); TOTAL BILIRUBIN 0.1 mg/dL (0.2-1.0); TOTAL PROTEIN 6.6 g/dL (6.4-8.2)
[2018-06-27 13:34] VITALS: BP 150/62
[2018-07-10] MEDS ORDERED: VANC125C3 PO (14:53)
[2018-07-10] MEDS ORDERED: LORA0.5T PO (14:54)
[2018-07-10] MEDS ORDERED: HYDR-2155 PO (14:54)
== END 2018-06-27 13:28 | disposition home or self-care (01) ==
LOC: ER 11:15
DX: S39.012A Strain of muscle, fascia and tendon of lower back, initial encounter (principal); G44.209 Tension-type headache, unspecified, not intractable; F41.9 Anxiety disorder, unspecified; G43.909 Migraine, unspecified, not intractable, without status migrainosus; Z86.73 Personal history of transient ischemic attack (TIA), and cerebral infarction without residual deficits; Z90.49 Acquired absence of other specified parts of digestive tract; Z90.710 Acquired absence of both cervix and uterus; X58.XXXA Exposure to other specified factors, initial encounter; Y93.89 Activity, other specified; Y92.89 Other specified places as the place of occurrence of the external cause; Y99.8 Other external cause status
CPT/HCPCS: 36415; 80053; 85025; 96374; 96375; 99283; J1200; J1885; J2765; J7030

== ENCOUNTER 2018-07-06 00:13 | Inpatient (IN) | payer OTHER ==
[~2018-07-06] VITALS: Ht 152.4 cm; Wt 44.9 kg
[~2018-07-06 00:13] MED LIST changes: +HYDR25TA PO; +MELO15TA23 PO; +TIZA4TAB PO
--- NOTE | 2018-07-06 00:18 | ED.ADGEN ---
Past History Past Medical History: CVA, Migraines, TIA, Other Past Surgical History: Cholecystectomy, Hysterectomy, Other Past Surgical History Plication for weight loss in 2008 Alcohol Use: None Drug Use: None Adult General Chief Complaint Chief Complaint ".. I ve had non-stop nausea, vomiting and diarrhea... maybe 20 stools today.. I ve been getting sick maybe for two weeks... I ve lost 20# in two weeks.." HPI HPI Patient is a 57 year old female who presents with above hx and complaints nausea and vomiting and diarrhea. Patient reports 20 pounds weight loss in the last 2 weeks. Patient denies any travel or specific ill contacts. Is on city water. Complains of subjective fevers and chills. Patient states sometimes she feels like she's had the flu. Patient has a history of TIA and CVAs in the past. Patient has history of frequent migraine headaches. Patient has had multiple abdomen surgeries and a plication for weight loss in 2008. Patient denies any history immunosuppression. approximate 1 month ago did have a treatment for urinary tract infection with clindamycin. No recent antibiotics. No prior history of C. difficile. Review of Systems Review of Systems Constitutional: subjective complaints of fever or chills [] Eyes: Denies change in visual acuity, redness, or eye pain [] HENT: Denies nasal congestion or sore throat [] Respiratory: Denies cough or shortness of breath [] Cardiovascular: No additional information not addressed in HPI [] GI: complains of generalized abdominal pain, nausea, vomiting,and diarrhea [] : Denies dysuria or hematuria [] Musculoskeletal: Denies back pain or joint pain [] Integument: Denies rash or skin lesions [] Neurologic: Denies headache, focal weakness or sensory changes [] Endocrine: Denies polyuria or polydipsia [] All other systems were reviewed and found to be within normal limits, except as documented in this note. Family History Family History Noncontributory Current Medications Current Medications Current Medications Medications (Trade) Dose Ordered Sig/Anai Start Time Stop Time Status Last Admin Dose Admin Lactated Ringer's 1,000 ml @ 1,000 mls/hr Q1H 07/06/18 00:30 07/06/18 01:29 DC 07/06/18 00:51 1,000 MLS/HR Ondansetron HCl (Zofran) 8 mg 1X ONCE 4/11/19 00:45 07/06/18 00:46 DC 07/06/18 00:51 8 MG Allergies Allergies Allergies Coded Allergies Type Severity Reaction Last Updated Verified No Known Allergies Allergy Unknown 12/01/17 Yes Physical Exam Physical Exam Constitutional: moderatelyo acute distress, non-toxic appearance. [] HENT: Normocephalic, atraumatic, bilateral external ears normal, oropharynx dryt , no oral exudates, nose normal. [] Eyes: PERRLA, EOMI, conjunctiva normal, no discharge. [] Neck: Normal range of motion, no tenderness, supple, no stridor. [] Cardiovascular:tachycardia Heart rate regular rhythm, no murmur [] Lungs & Thorax: Bilateral breath sounds equal at apexes with a few scattered wheezes on auscultation [] Abdomen: Bowel sounds hyperactive, soft, generalized tenderness, no masses, no pulsatile masses. multiple surgery scars Skin: Warm, dry, no erythema, no rash. poor turgor Back: No tenderness, no CVA tenderness. [] Extremities: No tenderness, no cyanosis, no clubbing, ROM intact, no edema. [] Neurologic: Alert and oriented X 3, normal motor function, normal sensory function, no focal deficits noted. [] Psychologic: Affect anxious, judgement normal, mood normal. [] Current Patient Data Vital Signs Vital Signs Date Time Temp Pulse Resp B/P (MAP) Pulse Ox O2 Delivery O2 Flow Rate FiO2 07/06/18 00:20 98.2 96 18 98 Room Air Lab Results Laboratory Tests Test 07/06/18 00:40 White Blood Count 15.7 x10^3/uL (4.0-11.0) H Red Blood Count 4.62 x10^6/uL (3.50-5.40) Hemoglobin 14.5 g/dL (12.0-15.5) Hematocrit 42.1 % (36.0-47.0) Mean Corpuscular Volume 91 fL (79-100) Mean Corpuscular Hemoglobin 31 pg (25-35) Mean Corpuscular Hemoglobin Concent 34 g/dL (31-37) Red Cell Distribution Width 15.2 % (11.5-14.5) H Platelet Count 771 x10^3/uL (140-400) H Neutrophils (%) (Auto) 84 % (31-73) H Lymphocytes (%) (Auto) 8 % (24-48) L Monocytes (%) (Auto) 7 % (0-9) Eosinophils (%) (Auto) 1 % (0-3) Basophils (%) (Auto) 0 % (0-3) Neutrophils # (Auto) 13.2 x10^3uL (1.8-7.7) H Lymphocytes # (Auto) 1.3 x10^3/uL (1.0-4.8) Monocytes # (Auto) 1.1 x10^3/uL (0.0-1.1) Eosinophils # (Auto) 0.1 x10^3/uL (0.0-0.7) Basophils # (Auto) 0.0 x10^3/uL (0.0-0.2) Segmented Neutrophils % 68 % (35-66) H Band Neutrophils % 10 % (0-9) H Lymphocytes % 13 % (24-48) L Monocytes % 9 % (0-10) Platelet Estimate Increased (ADEQUATE) Prothrombin Time 12.9 SEC (9.4-11.4) H Prothrombin Time INR 1.3 (0.9-1.1) H PTT 29 SEC (23-33) Sodium Level 133 mmol/L (136-145) L Potassium Level 3.3 mmol/L (3.5-5.1) L Chloride Level 95 mmol/L (98-107) L Carbon Dioxide Level 28 mmol/L (21-32) Anion Gap 10 (6-14) Blood Urea Nitrogen 20 mg/dL (7-20) Creatinine 1.1 mg/dL (0.6-1.0) H Estimated GFR (Cockcroft-Gault) 51.6 Glucose Level 98 mg/dL (70-99) Calcium Level 8.7 mg/dL (8.5-10.1) Magnesium Level 2.3 mg/dL (1.8-2.4) Total Bilirubin 0.6 mg/dL (0.2-1.0) Direct Bilirubin 0.1 mg/dL (0.0-0.2) Aspartate Amino Transferase (AST) 19 U/L (15-37) Alanine Aminotransferase (ALT) 17 U/L (14-59) Alkaline Phosphatase 132 U/L (46-116) H Troponin I Quantitative < 0.017 ng/mL (0-0.055) Total Protein 6.0 g/dL (6.4-8.2) L Albumin 2.6 g/dL (3.4-5.0) L Amylase Level 13 U/L (25-115) L Lipase 54 U/L (73-393) L EKG EKG My interpretation EKG shows a sinus rhythm at 90 bpm. Some nonspecific contour abnormalities anterior septal region. No findings acute STEMI with contralateral changes.[] Radiology/Procedures Radiology/Procedures I interpretation of acute abdomen film shows nonspecific bowel gas pattern. No free air under the diaphragm. Multiple old surgery clips. [] Course & Med Decision Making Course & Med Decision Making Pertinent Labs and Imaging studies reviewed. (See chart for details) Discussed presentation, testing and treatment plan with Dr. Ozzie solomon for further evaluation and treatment. [] Final Impression Final Impression 1. Nausea, Vomiting, Diarrhea[] 2. Hx. 20# Wt. loss in the last 3. Leukocytosis 15.7 4. Hyponatremia 133 5. Hypokalemia 3.3 6. Elevated Alk Phos 132, 7. Elevated Creat. 8. Malnutrition- Alb. 2.6 9. Vol. contracted/ Dehydration 10. Hematuria Dragon Disclaimer Dragon Disclaimer This electronic medical record was generated, in whole or in part, using a voice recognition dictation system. Discharge Summary Visit Information Final Diagnosis Problems Medical Problems: (1) Nausea & vomiting Status: Acute Brief Hospital Course Allergies Allergies Coded Allergies Type Severity Reaction Last Updated Verified No Known Allergies Allergy Unknown 12/01/17 Yes Vital Signs Vital Signs Date Time Temp Pulse Resp B/P (MAP) Pulse Ox O2 Delivery O2 Flow Rate FiO2 07/06/18 00:20 98.2 96 18 98 Room Air Lab Results Laboratory Tests Test 07/06/18 00:40 White Blood Count 15.7 x10^3/uL (4.0-11.0) Red Blood Count 4.62 x10^6/uL (3.50-5.40) Hemoglobin 14.5 g/dL (12.0-15.5) Hematocrit 42.1 % (36.0-47.0) Mean Corpuscular Volume 91 fL (79-100) Mean Corpuscular Hemoglobin 31 pg (25-35) Mean Corpuscular Hemoglobin Concent 34 g/dL (31-37) Red Cell Distribution Width 15.2 % (11.5-14.5) Platelet Count 771 x10^3/uL (140-400) Neutrophils (%) (Auto) 84 % (31-73) Lymphocytes (%) (Auto) 8 % (24-48) Monocytes (%) (Auto) 7 % (0-9) Eosinophils (%) (Auto) 1 % (0-3) Basophils (%) (Auto) 0 % (0-3) Neutrophils # (Auto) 13.2 x10^3uL (1.8-7.7) Lymphocytes # (Auto) 1.3 x10^3/uL (1.0-4.8) Monocytes # (Auto) 1.1 x10^3/uL (0.0-1.1) Eosinophils # (Auto) 0.1 x10^3/uL (0.0-0.7) Basophils # (Auto) 0.0 x10^3/uL (0.0-0.2) Segmented Neutrophils % 68 % (35-66) Band Neutrophils % 10 % (0-9) Lymphocytes % 13 % (24-48) Monocytes % 9 % (0-10) Platelet Estimate Increased (ADEQUATE) Prothrombin Time 12.9 SEC (9.4-11.4) Prothromb Time International Ratio 1.3 (0.9-1.1) Activated Partial Thromboplast Time 29 SEC (23-33) Sodium Level 133 mmol/L (136-145) Potassium Level 3.3 mmol/L (3.5-5.1) Chloride Level 95 mmol/L (98-107) Carbon Dioxide Level 28 mmol/L (21-32) Anion Gap 10 (6-14) Blood Urea Nitrogen 20 mg/dL (7-20) Creatinine 1.1 mg/dL (0.6-1.0) Estimated GFR (Cockcroft-Gault) 51.6 Glucose Level 98 mg/dL (70-99) Calcium Level 8.7 mg/dL (8.5-10.1) Magnesium Level 2.3 mg/dL (1.8-2.4) Total Bilirubin 0.6 mg/dL (0.2-1.0) Direct Bilirubin 0.1 mg/dL (0.0-0.2) Aspartate Amino Transf (AST/SGOT) 19 U/L (15-37) Alanine Aminotransferase (ALT/SGPT) 17 U/L (14-59) Alkaline Phosphatase 132 U/L (46-116) Troponin I Quantitative < 0.017 ng/mL (0-0.055) Total Protein 6.0 g/dL (6.4-8.2) Albumin 2.6 g/dL (3.4-5.0) Amylase Level 13 U/L (25-115) Lipase 54 U/L (73-393) Brief Hospital Course Ms. Juarze is a 57 old female who presented with N/V/D, and dehydration. Admitted Dr. Borges Discharge Information Condition at Discharge: Improved, Stable Dischare Medications Current Medications Lactated Ringer's 1,000 ml @ 1,000 mls/hr Q1H IV Last administered on at 00:51; Admin Dose 1,000 MLS/HR; Start 07/06/18 at 00:30; Stop 07/06/18 at 01:29; Status DC Ondansetron HCl (Zofran) 8 mg 1X ONCE IV Last administered on 07/06/18at 00:51 ; Admin Dose 8 MG; Start 07/06/18 at 00:45; Stop 07/06/18 at 00:46; Status DC Active Scripts Active Tizanidine Hcl (Tizanidine HCl) 4 Mg Tablet 4 Mg PO PRN Q8HRS PRN Hydroxyzine Hcl 25 Mg Tablet 1 Tab PO TID PRN This medication can also be taken as a sleep aid. Take 2 of them 30 minutes before bed. Reported Naproxen 500 Mg Tablet 500 Mg PO BID Zofran (Ondansetron Hcl) 4 Mg Tablet 4 Mg PO PRN Q6HRS PRN Valtrex (Valacyclovir Hcl) 1,000 Mg Tablet 1,000 Mg PO DAILY PRN Super B-50 Complex (Vitamin B Complex) 1 Each Capsule 1 Each PO BID Aspirin Ec (Aspirin) 81 Mg Tablet.dr 81 Mg PO DAILY Pantoprazole Sodium 40 Mg Tablet.dr 40 Mg PO DAILY LAST DOSE GIVEN: DATE: TODAY TIME: BEFORE BREAKFAST NEXT DOSE DUE: DATE: TOMORROW TIME: BEFORE BREAKFAST Zolpidem Tartrate 10 Mg Tablet 5 Mg PO HS LAST DOSE GIVEN: DATE: YESTERDAY TIME: AT BEDTIME NEXT DOSE DUE: DATE: TODAY TIME: AT BEDTIME Multivitamins (Multivitamin) 1 Each Tablet 1 Tab PO DAILY LAST DOSE GIVEN: DATE: TODAY TIME: AM NEXT DOSE DUE: DATE: TOMORROW TIME: AM Lamictal (Lamotrigine) 100 Mg Tablet 100 Mg PO BID LAST DOSE GIVEN: DATE: TIME: AM NEXT DOSE DUE: DATE: TIME: PM [place] Disclaimer This chart was dictated in whole or in part using Voice Recognition software in a busy, high-work load, and often noisy Emergency Department environment. It may contain unintended and wholly unrecognized errors or omissions. LILIBETH BEAR MD Jul 06, 2018 00:18
[2018-07-06] MEDS ORDERED: IV RINGERS SOLUTION,LACTATED 1,000 ML IV SCH (00:30)
[2018-07-06] MEDS ORDERED: ONDANSETRON PF 4 MG/2 ML VIAL. IV ONE (00:45)
[2018-07-06 01:37] LABS: BASO % 0 % (0-3); EOS # 0.1 x10^3/uL (0.0-0.7); EOS % 1 % (0-3); HEMATOCRIT 42.1 % (36.0-47.0); HEMOGLOBIN 14.5 g/dL (12.0-15.5); LYMPH # 1.3 x10^3/uL (1.0-4.8); LYMPH % 8 % (24-48); MEAN CORPUSCULAR HEMOGLOBIN 31 pg (25-35); MEAN CORPUSCULAR HGB CONC 34 g/dL (31-37); MEAN CORPUSCULAR VOLUME 91 fL (79-100); MONO # 1.1 x10^3/uL (0.0-1.1); MONO % 7 % (0-9); NEUT # 13.2 x10^3uL (1.8-7.7); NEUT % 84 % (31-73); PLATELET COUNT 771 x10^3/uL (140-400); RED BLOOD COUNT 4.62 x10^6/uL (3.50-5.40); RED CELL DISTRIBUTION WIDTH 15.2 % (11.5-14.5); WHITE BLOOD COUNT 15.7 x10^3/uL (4.0-11.0)
[2018-07-06 01:52] LABS: % BANDS 10 % (0-9); % LYMPHS 13 % (24-48); % MONOS 9 % (0-10); % SEGS 68 % (35-66); PLT ESTIMATE INCREASED (ADEQUATE)
[2018-07-06 01:55] LABS: ALBUMIN 2.6 g/dL (3.4-5.0); CALCIUM 8.7 mg/dL (8.5-10.1); CREATININE 1.1 mg/dL (0.6-1.0); DIRECT BILIRUBIN 0.1 mg/dL (0.0-0.2); GFR 51.6; MAGNESIUM 2.3 mg/dL (1.8-2.4); POTASSIUM 3.3 mmol/L (3.5-5.1); TOTAL BILIRUBIN 0.6 mg/dL (0.2-1.0)
[2018-07-06] MEDS ORDERED: ONDANSETRON PF 4 MG/2 ML VIAL. IV PRN (02:15)
[2018-07-06] MEDS ORDERED: ACETAMINOPHEN 325 MG TABLET PO PRN (02:15)
--- NOTE | 2018-07-06 02:17 | EKG ---
[address] [address] Test Date: 2018-07-06 Test Time: 00:57:19 Pat Name: FRANTZ JOE Department: Room: Gender: F Lead Pourer: KATHY : 1960 Requested By: LILIBETH BEAR Order Number: [id number] Reading MD: Nicholas Doe MD Measurements Intervals [place] Rate: 90 P: 74 [place]: 158 QRS: 50 QRSD: 88 T: 52 QT: 364 QTc: 449 Interpretive Statements SINUS RHYTHM NON-SPECIFIC ST/T CHANGES Electronically Signed On 07-17-2018 10:19:48 CDT by Nicholas Doe MD
[2018-07-06] MEDS ORDERED: levoFLOXacin 500 MG TABLET PO ONE (02:30)
[2018-07-06] MEDS: IV RINGERS SOLUTION,LACTATED 1,000 ML IV SCH ×3 (03:18→13:29)
[2018-07-06 04:02] LABS: AMPHETAMINE/METHAMPHETAMINE NEG (NEG); BARBITURATES NEG (NEG); BENZODIAZEPINES NEG (NEG); CANNABINOIDS NEG (NEG); COCAINE NEG (NEG); METHADONE NEG (NEG); OPIATES NEG (NEG); PHENCYCLIDINE NEG (NEG)
[2018-07-06 04:04] LABS: BACTERIA,URINE 0 /HPF (0-FEW); BILIRUBIN,URINE NEG (NEG); CLARITY,URINE CLEAR; COLOR,URINE YELLOW; GLUCOSE,URINE NEG (NEG); NITRITE,URINE NEG (NEG); RBC,URINE 20-40 /HPF (0-2); SQUAMOUS EPITHELIAL CELL,UR OCC /LPF; UROBILINOGEN,URINE 0.2 mg/dL (0.2 mg/dL); WBC,URINE OCC /HPF (0-4)
[2018-07-06 04:18] LABS: INFLUENZA A PATIENT NEGATIVE (NEGATIVE); INFLUENZA B PATIENT NEGATIVE (NEGATIVE)
[2018-07-06] MEDS ORDERED: LORazepam 1 MG TABLET PO ONE (04:30)
--- NOTE | 2018-07-06 04:47 | NUR ---
Admission: The patient, FRANTZ JOE, 57 y/o, F admitted by JASEN TALAVERA MD, was given written information regarding hospital policies, unit procedures and contact persons. Pt admitted from ER to [facility] room 123 via [facility], accompanied by EMS and nursing staff. Pt transferred from [place] to bed independently. Pt admitted for N/V/D, dehydration. Admission assessment completed. Pt A&O x4, pleasant. Health history and home medications reviewed with pt. Pt lives at home with . Nutrition consulted per protocol due to recent weight loss of 17# unintentionally. Valuables were checked, logged and left at bedside. Call light within reach. Pt NPO with ice chips.
[2018-07-06 04:53] VITALS: BP 107/68
[2018-07-06] MEDS ORDERED: VITA1CAP7 PO (05:15)
[2018-07-06] MEDS ORDERED: ONDA4TAB7 PO (05:15)
[2018-07-06] MEDS ORDERED: VALA10005 PO (05:15)
[2018-07-06] MEDS ORDERED: NAPR-514 PO (05:15)
[2018-07-06] MEDS ORDERED: ASPI-612 PO (05:15)
--- NOTE | 2018-07-06 08:06 | RAD ---
Acute abdominal series. 07/06/2018 1:09 AM Indication: NAUSEA VOMITING DIARRHEA X 5 DAYS
HX GASTRIC BYPASS X10 YRS AGO Comparison Study: None Discussion: Calcified granuloma noted in the left lung. There is no focal consolidation. There is no pleural effusion or pneumothorax. L The cardiomediastinal silhouette and pulmonary vasculature are within normal limits. No pneumoperitoneum is identified. Postsurgical changes noted in the epigastrium. Mild nonspecific gaseous distention of large bowel is seen. Possible areas of bowel wall thickening noted. . No acute osseous abnormalities are seen. Impression: 1. Mild gaseous distention of large bowel without definitive evidence of obstruction. Possible areas of bowel wall thickening noted. Consider CT for further evaluation as clinically indicated. 2. No evidence of acute cardiopulmonary process Electronically signed by: Didier Moreno MD (07/06/2018 8:04 AM) [id number]
[2018-07-06] MEDS: metroNIDAZOLE 500 MG TABLET PO SCH ×3 (08:10→21:36)
[2018-07-06] MEDS: VITAMIN B COMPLEX CAPSULE. PO SCH ×2 (08:10→21:36)
[2018-07-06] MEDS: ASPIRIN ENTERIC COATED 81 MG TABLET.DR. PO SCH (08:10)
[2018-07-06] MEDS: MULTIVITAMIN with MINERAL TABLET. PO SCH (08:10)
[2018-07-06] MEDS: PANTOPRAZOLE 40 MG TABLET. PO SCH (08:10)
[2018-07-06] MEDS: lamoTRIgine 100 MG TABLET. PO SCH ×2 (08:10→21:35)
--- NOTE | 2018-07-06 09:27 | NUR ---
NURSING NOTE ANXIOUS STEWARD/STEWARDESS NIGHT STATES PT WANTS SOMETHING FOR ANXIETY, WENT IN TO ASSESS PT AND PT WAS SLEEPING. DID NOT WAKE UP PT. NOTHING GIVEN AT THIS TIME. WILL REASSESS WHEN PT IS AWAKE. ESTRELLA BELLAMY
[2018-07-06 11:15] VITALS: BP 133/70
[2018-07-06 13:42] LABS: CALCIUM 7.4 mg/dL (8.5-10.1); CREATININE 0.7 mg/dL (0.6-1.0); GFR 86.9
[2018-07-06 13:44] LABS: POTASSIUM 2.9 mmol/L (3.5-5.1)
[2018-07-06] MEDS: POTASSIUM CHLORIDE 20 MEQ TABLET.ER. PO SCH ×2 (14:06→21:35)
[2018-07-06] MEDS: POTASSIUM CL 40MEQ IN 0.9%NACL 1,000 ML IV SCH (14:07)
--- NOTE | 2018-07-06 14:33 | HP ---
ADMIT DATE: 07/06/2018 HISTORY OF PRESENT ILLNESS: The patient is a 57-year-old female patient, who came to the Emergency Room, complaining of nonstop nausea, vomiting and diarrhea, started particularly about 6 days ago and according to her, probably has been sick for almost 2 weeks ago and she has lost about 20 pounds in 2 weeks' time. She denied any fever, chills or rigors. Did complain of nausea, did complain of dizziness or lightheadedness. She apparently was treated for urinary tract infection with clindamycin. She has had a history of Helicobacter pylori in 2013, ___ had any problem since then. PAST MEDICAL HISTORY: Significant for morbid obesity, treated with gastric bypass surgery, has a history of Helicobacter pylori and urinary tract infection, treated with clindamycin about 6 weeks ago. She is also known to have a history of hypothyroidism. She stated that she has a history of TIA, migraines and cerebrovascular accident. PAST SURGICAL HISTORY: Significant for gastric bypass surgery, cholecystectomy, total abdominal hysterectomy, bilateral salpingo-oophorectomy, left knee reconstruction surgery, has had esophagogastroduodenoscopy and colonoscopy. ALLERGIES: She has no known drug allergies. MEDICATIONS: She is currently on following medications: She is on valacyclovir 1000 mg p.o. daily, tizanidine 4 mg every 8 hours, aspirin 81 mg once a day, naproxen 500 mg twice a day, lamotrigine 100 mg p.o. b.i.d. for seizures, hydroxyzine 25 mg 3 times a day, Ambien 5 mg at bedtime, ondansetron 4 mg every 6 hours, Protonix 40 mg daily, vitamin B complex one tablet twice a day, and multivitamin 1 tablet once a day. FAMILY HISTORY: She has 2 brothers and 2 sisters, all younger and healthy. Her father at the age of 60 because of brain tumor. Mother at the age of 91 because of dementia and stroke. SOCIAL HISTORY: She is , has 1 daughter from her previous marriage. She smokes half a pack a day, does not drink alcohol or any drugs. She is retired. REVIEW OF SYSTEMS: The patient denied any blurring of vision, cataract, glaucoma or macular degeneration. Denied any earache, tinnitus or sensorineural deafness. Did complain of some stuffy nose, but no nosebleed or postnasal drip. Denied any sore throat, sore tongue, toothache, hoarseness of voice or difficulty swallowing. She did lose about 20 pounds. She has nausea, vomiting and diarrhea, but denied any hematemesis, melena or hematochezia. Denied any dysuria, frequency or hematuria. Denied any chest pain, shortness of breath, orthopnea or paroxysmal nocturnal dyspnea. Denied any cough, phlegm or hemoptysis. Denied any chills, rigors or fever. Did complain of dizziness and lightheadedness. PHYSICAL EXAMINATION: GENERAL: On arrival to the Emergency Room, there was no pallor, jaundice, cyanosis, or thyromegaly. No jugular venous distension. No limb edema. She was cachectic with a body mass index 17.9 kilograms square meter. VITAL SIGNS: Her heart rate was 96, blood pressure was 116/70, temperature was 98.2, respiratory rate was 18 and oxygen saturation was 96%. HEAD, EYES, EARS, NOSE AND THROAT: Showed normocephalic, atraumatic. NECK: Supple. HEART: Showed normal first and second heart sounds. No gallop, rub or murmur. CHEST: Clear to auscultation. No crepitation or rhonchi. ABDOMEN: Distended, soft, nontender. No guarding or rigidity. No organomegaly. All hernial orifice intact. Bowel sounds normal. NEUROLOGIC: She is awake, alert, responding appropriately. All cranial nerves intact. EXTREMITIES: She moves extremities without difficulty. She ambulates without assistance or assistive devices. LABORATORY DATA: On arrival to the hospital, her white cell count was 15,700, hemoglobin 14.5, hematocrit 42, MCV 91, and platelet count of 771,000. Her chemistry showed a serum sodium 133, potassium 3.3, chloride 95, bicarbonate 28, anion gap of 10, BUN 20, creatinine 1.1, estimated GFR was 51 mL per minute. Her glucose was 98, calcium was 8.7, and magnesium was 2.3. Total bilirubin, AST, ALT, alkaline phosphatase were normal. Her total protein was 6, albumin 2.6. Amylase and lipase were normal. Her prothrombin time was 12.9, INR 1.3, aPTT was 29. Her urinalysis showed the urine was yellow, clear with a pH of 6, specific gravity 1.005. The urine was negative for protein, glucose. There was trace of ketones, large amount of blood, negative for nitrite and leukocyte esterase. There were 20-40 rbc's, no wbc's, and no bacteria. Her urine test was negative. Her toxic screen was negative. Her acute abdomen series showed that she has calcified granuloma noted in her left lung. There is no focal consolidation. There is no pleural effusion or pneumothorax. The cardiomediastinal silhouette and pulmonary vasculature are within normal limits. No pneumoperitoneum was identified. Postsurgical changes noted in the epigastrium, mild nonspecific gaseous distention of large bowel is seen. Possible areas of bowel wall thickening noted. No acute osseous abnormalities are seen. ASSESSMENT AND PLAN: The patient was admitted with a questionable acute gastritis. We will send stool for C. diff, was continued on IV fluid. She apparently was started on Flagyl and levofloxacin by the ER physician. Once we have the result of the stool for Clostridium difficile colitis and stool for culture and sensitivity. We will decide on further management accordingly. Apparently, her stool for C. diff came back positive and her influenza A and B were negative and therefore, I will discontinue her Levaquin. We will add oral vancomycin for Clostridium difficile colitis. JASEN TALAVERA MD DR: GUERITA/arsalan JOB#: [id number] / [id number]
[2018-07-06] MEDS: ONDANSETRON ODT 4 MG TAB.RAPDIS PO PRN ×2 (15:12→21:36)
[2018-07-06 15:25] VITALS: BP 145/78
[2018-07-06] MEDS: VANCOMYCIN 125 MG/2.5 ML ORAL SOLUTION. PO SCH ×2 (16:08→21:34)
[2018-07-06] MEDS: LORazepam 0.5 MG TABLET PO PRN (16:28)
[2018-07-06 19:43] VITALS: BP 123/59
[2018-07-06] MEDS ORDERED: LACTOBACILLUS RHAMNOSUS GG 1 CAPSULE. PO SCH (21:00)
[2018-07-06] MEDS ORDERED: levoFLOXacin 500 MG TABLET PO SCH (21:00)
[2018-07-06] MEDS: ZOLPIDEM 5 MG TABLET. PO SCH (21:36)
[2018-07-06] MEDS: LACTOBACILLUS RHAMNOSUS GG 1 CAPSULE. PO SCH (21:36)
[2018-07-06 22:31] VITALS: BP 131/79
[2018-07-07] MEDS: POTASSIUM CL 40MEQ IN 0.9%NACL 1,000 ML IV SCH ×2 (04:08→17:01)
[2018-07-07 05:30] VITALS: BP 120/71
[2018-07-07 06:38] LABS: BASO # 0.1 x10^3/uL (0.0-0.2); BASO % 1 % (0-3); EOS # 0.1 x10^3/uL (0.0-0.7); EOS % 1 % (0-3); HEMATOCRIT 36.4 % (36.0-47.0); HEMOGLOBIN 12.4 g/dL (12.0-15.5); LYMPH # 1.1 x10^3/uL (1.0-4.8); LYMPH % 7 % (24-48); MEAN CORPUSCULAR HEMOGLOBIN 31 pg (25-35); MEAN CORPUSCULAR HGB CONC 34 g/dL (31-37); MEAN CORPUSCULAR VOLUME 91 fL (79-100); MONO # 1.3 x10^3/uL (0.0-1.1); MONO % 9 % (0-9); NEUT # 12.6 x10^3uL (1.8-7.7); NEUT % 83 % (31-73); PLATELET COUNT 653 x10^3/uL (140-400); RED BLOOD COUNT 4.01 x10^6/uL (3.50-5.40); RED CELL DISTRIBUTION WIDTH 15.2 % (11.5-14.5); WHITE BLOOD COUNT 15.2 x10^3/uL (4.0-11.0)
[2018-07-07 06:58] LABS: CALCIUM 7.4 mg/dL (8.5-10.1); CREATININE 0.6 mg/dL (0.6-1.0); GFR 103.8; POTASSIUM 4.2 mmol/L (3.5-5.1)
--- NOTE | 2018-07-07 08:15 | NUR ---
IP: patient has + c diff, requires contact + precautions for duration of stay.
[2018-07-07] MEDS: PANTOPRAZOLE 40 MG TABLET. PO SCH (09:02)
[2018-07-07] MEDS: lamoTRIgine 100 MG TABLET. PO SCH ×2 (09:02→23:05)
[2018-07-07] MEDS: POTASSIUM CHLORIDE 20 MEQ TABLET.ER. PO SCH ×3 (09:03→23:04)
[2018-07-07] MEDS: VITAMIN B COMPLEX CAPSULE. PO SCH ×2 (09:03→23:03)
[2018-07-07] MEDS: ONDANSETRON ODT 4 MG TAB.RAPDIS PO PRN (09:03)
[2018-07-07] MEDS: MULTIVITAMIN with MINERAL TABLET. PO SCH (09:04)
[2018-07-07] MEDS: metroNIDAZOLE 500 MG TABLET PO SCH (09:04)
[2018-07-07] MEDS: ASPIRIN ENTERIC COATED 81 MG TABLET.DR. PO SCH (09:04)
[2018-07-07] MEDS: LACTOBACILLUS RHAMNOSUS GG 1 CAPSULE. PO SCH ×2 (09:05→23:04)
[2018-07-07] MEDS: VANCOMYCIN 125 MG/2.5 ML ORAL SOLUTION. PO SCH ×4 (09:08→23:03)
[2018-07-07] MEDS: LORazepam 0.5 MG TABLET PO PRN ×2 (09:11→17:01)
[2018-07-07 10:49] VITALS: BP 127/76
[2018-07-07] MEDS: METOCLOPRAMIDE HCL 10 MG/2 ML VIAL. IV SCH ×3 (11:40→23:06)
[2018-07-07 14:49] VITALS: BP 124/70
[2018-07-07] MEDS ORDERED: IOHEXOL 300 MG/ML 75 ML VIAL. IV ONE (19:15)
[2018-07-07 19:45] VITALS: BP 113/74
[2018-07-07] MEDS ORDERED: IOHEXOL 240 MG/ML 50ML VIAL. PO ONE (20:45)
[2018-07-07 23:00] VITALS: BP 112/60
[2018-07-07] MEDS: ZOLPIDEM 5 MG TABLET. PO SCH (23:03)
[2018-07-07] MEDS: FAMOTIDINE 20 MG TABLET PO SCH (23:05)
--- NOTE | 2018-07-08 00:26 | PN ---
DATE: 07/07/2018 SUBJECTIVE: The patient is resting, slightly propped up in bed, in no apparent respiratory distress. She continued to have nausea as well as she has 4 episodes of diarrhea yesterday and 2 so far this morning; however, she denied any dizziness or lightheadedness. PHYSICAL EXAMINATION: GENERAL: When I examined her, she looked pale, cachectic, but no jaundice, cyanosis, or thyromegaly. No jugular venous distension. No lower limb edema. VITAL SIGNS: Her heart rate was 95, blood pressure was 127/76, temperature was 98.4, respiratory rate 20 and oxygen saturation was 94%. HEENT: Examination of the head, eyes, ears, nose and throat showed normocephalic, atraumatic. NECK: Supple. HEART: Showed normal first and second heart sounds. No gallop, rub or murmur. CHEST: Clear to auscultation. No crepitation or rhonchi. ABDOMEN: Scaphoid, soft, nontender. NEUROLOGIC: She was sleepy, but arousable. All her cranial nerves are intact. EXTREMITIES: She moves extremities without difficulty. Her intake was 3900. No output was recorded. LABORATORY DATA: Her lab work this morning showed her white cell count continued to be high at 15,200, hemoglobin 12, hematocrit 36, MCV 91 and platelet count of 653,000 with normal manual differential. Her chemistry showed the serum sodium was 137, potassium 4.2, chloride 105, bicarbonate 25, anion gap of 7, her BUN of 7, creatinine 0.6, estimated GFR was 104 mL per minute. Her glucose was 99 and calcium was 7.4. Her prothrombin time, INR and aPTT are all within normal limits. Urinalysis showed hematuria. Her toxic screen was negative and her stool for C. diff was positive. ASSESSMENT: 1. Clostridium difficile colitis. The patient had 4 episodes of loose bowel movement yesterday and 2 this morning. 2. Hypokalemia, improved. His potassium has risen from 2.9-4.2. 3. Acute kidney injury, is improving. Her creatinine came down from 1.1-0.6. PLAN: My plan is to continue with current medication and continue with IV fluid. I will cut down the potassium to 20 mEq 3 times a day and meanwhile, continue the IV fluid, continue with the oral vancomycin. I will discontinue Flagyl and repeat her lab works tomorrow. JASEN TALAVERA MD DR: GUERITA/arsalan JOB#: [id number] / [id number]
[2018-07-08] MEDS: LORazepam 0.5 MG TABLET PO PRN ×2 (01:50→11:41)
[2018-07-08 06:21] VITALS: BP 117/70
[2018-07-08] MEDS: hydrOXYzine HCL 25 MG TABLET PO PRN (06:26)
[2018-07-08] MEDS: POTASSIUM CL 40MEQ IN 0.9%NACL 1,000 ML IV SCH (06:27)
[2018-07-08 06:43] LABS: HEMATOCRIT 37.1 % (36.0-47.0); HEMOGLOBIN 12.1 g/dL (12.0-15.5); RED BLOOD COUNT 3.93 x10^6/uL (3.50-5.40); RED CELL DISTRIBUTION WIDTH 15.4 % (11.5-14.5); WHITE BLOOD COUNT 11.3 x10^3/uL (4.0-11.0)
[2018-07-08 06:59] LABS: CALCIUM 7.6 mg/dL (8.5-10.1); CREATININE 0.5 mg/dL (0.6-1.0); GFR 128.1; POTASSIUM 5.3 mmol/L (3.5-5.1)
[2018-07-08] MEDS: FAMOTIDINE 20 MG TABLET PO SCH (08:17)
[2018-07-08] MEDS: VITAMIN B COMPLEX CAPSULE. PO SCH ×2 (08:17→21:12)
[2018-07-08] MEDS: POTASSIUM CHLORIDE 20 MEQ TABLET.ER. PO SCH ×2 (08:17→11:42)
[2018-07-08] MEDS: lamoTRIgine 100 MG TABLET. PO SCH ×2 (08:18→21:12)
[2018-07-08] MEDS: LACTOBACILLUS RHAMNOSUS GG 1 CAPSULE. PO SCH ×2 (08:18→21:12)
[2018-07-08] MEDS: MULTIVITAMIN with MINERAL TABLET. PO SCH (08:18)
[2018-07-08] MEDS: ASPIRIN ENTERIC COATED 81 MG TABLET.DR. PO SCH (08:18)
[2018-07-08] MEDS: METOCLOPRAMIDE HCL 10 MG/2 ML VIAL. IV SCH ×4 (08:18→21:12)
[2018-07-08] MEDS: VANCOMYCIN 125 MG/2.5 ML ORAL SOLUTION. PO SCH ×4 (08:19→21:11)
--- NOTE | 2018-07-08 10:08 | RAD ---
CT abdomen and pelvis with contrast. HISTORY: Right lower abdominal pain, nausea, vomiting diarrhea CT scan the abdomen and pelvis was done using 75 mL Omnipaque 300 contrast. Lung bases are clear. There is no effusion. A liver lesion is not identified. The patient's had a cholecystectomy. Spleen and adrenal glands are normal. Pancreas is normal. There is no mass or hydronephrosis in the kidneys. There is mild fluid or ascites in the abdomen. There is bowel wall thickening of the colon suggesting a diffuse colitis. Patient's had a hysterectomy. There is no small bowel obstruction. Appendix is upper normal in size. There is gas noted in the appendix without definite appendicitis IMPRESSION: 1. Mild fluid in the abdomen. 2. Diffuse bowel wall thickening of the colon suggesting a diffuse colitis. Electronically signed by: Gabo Viveros MD (07/08/2018 10:06 AM) [facility]
[2018-07-08 10:15] VITALS: BP 109/66
[2018-07-08] MEDS ORDERED: AA 3%/ELECTROLYTE-TPN SOLN/GLY 1,000 ML IV SCH ×2 (12:45→18:45)
[2018-07-08 15:40] VITALS: BP 110/67
[2018-07-08 19:40] VITALS: BP 117/72
[2018-07-08] MEDS: ZOLPIDEM 5 MG TABLET. PO SCH (21:12)
[2018-07-08 22:25] VITALS: BP 104/63
--- NOTE | 2018-07-09 01:15 | PN ---
DATE: SUBJECTIVE: A 57-year-old female, who has been having problems actually for almost last couple of weeks, she has been having problems with diarrhea, nonstop nausea, vomiting. Apparently, she has been seen by GI doctors in the past, had Helicobacter pylori. Presently, Dr. Borges has made the diagnosis of C. difficile colitis. The patient has also had past medical history for gastric bypass surgery and bilateral salpingo-oophorectomy. She has had an EGD and colonoscopy here. The patient has continued to lose a fair amount of weight, 20 pounds in the last few weeks according to the family. Her white count was over 15,000 and she did have 10 bands initially, putting her at a high level of complication from that C. difficile colitis. The patient has diffuse wall thickening consistent with the colitis. The patient has been on a regimen of vancomycin and she continues to have 4-5 loose stools a day. Otherwise, keep her on hydration. Family wanted something more for nutrition. We will put her on procalamine and at the same time put her on a fentanyl patch. Also, according to the [facility], try her on combination of vancomycin as well as IV Flagyl and combination sometimes this is prescribed for severe cases if white count is greater than 15,000 and a left shift. PHYSICAL EXAMINATION: VITAL SIGNS: Blood pressure 110/70, respiratory rate 20, pulse approximately 96, low grade temperature of 99.4. Good oxygen saturation. GENERAL: The patient is a frail appearing white female looking older than stated age of 57, very cachectic appearing. The patient is alert and oriented. The patient's potassium had gone down as low as 2.9. EYES: PERRLA without jaundice. LUNGS: Diminished, but clear. CARDIOVASCULAR: Stable. ABDOMEN: Soft. Definite tenderness throughout, slight guarding, but no rebounding, active bowel sounds. EXTREMITIES: No clubbing, cyanosis, or edema. Muscle wasting. LABORATORY DATA: The patient's albumin only 2.6, potassium up from 2.9 to 5.3, make adjustments there. Started her on procalamine. She had positive for C. difficile toxin B gene. The patient neurologically otherwise intact. Discussed with her , who apparently is a ____ in the about the situation and their expectations. IMPRESSION: Clostridium difficile colitis, severe protein malnutrition, cachexia. Continue with the vancomycin and metronidazole. Make further evaluation on her as indicated. DREW BARR MD DR: ALVIN/arsalan JOB#: [id number] / [id number]
[2018-07-09] MEDS: hydrOXYzine HCL 25 MG TABLET PO PRN ×2 (01:16→23:55)
[2018-07-09] MEDS: ONDANSETRON ODT 4 MG TAB.RAPDIS PO PRN ×2 (01:21→12:43)
[2018-07-09 05:26] VITALS: BP 121/75
[2018-07-09 07:43] LABS: BASO % 1 % (0-3); EOS # 0.1 x10^3/uL (0.0-0.7); EOS % 1 % (0-3); HEMATOCRIT 37.4 % (36.0-47.0); HEMOGLOBIN 12.4 g/dL (12.0-15.5); LYMPH # 1.6 x10^3/uL (1.0-4.8); LYMPH % 19 % (24-48); MEAN CORPUSCULAR HEMOGLOBIN 31 pg (25-35); MEAN CORPUSCULAR HGB CONC 33 g/dL (31-37); MEAN CORPUSCULAR VOLUME 92 fL (79-100); MONO # 0.9 x10^3/uL (0.0-1.1); MONO % 10 % (0-9); NEUT % 69 % (31-73); PLATELET COUNT 566 x10^3/uL (140-400); RED BLOOD COUNT 4.06 x10^6/uL (3.50-5.40); RED CELL DISTRIBUTION WIDTH 15.5 % (11.5-14.5); WHITE BLOOD COUNT 8.6 x10^3/uL (4.0-11.0)
[2018-07-09 07:49] LABS: CALCIUM 7.3 mg/dL (8.5-10.1); CREATININE 0.4 mg/dL (0.6-1.0); GFR 165.7; POTASSIUM 4.8 mmol/L (3.5-5.1)
[2018-07-09] MEDS: MULTIVITAMIN with MINERAL TABLET. PO SCH (08:17)
[2018-07-09] MEDS: METOCLOPRAMIDE HCL 10 MG/2 ML VIAL. IV SCH ×4 (08:17→21:36)
[2018-07-09] MEDS: LACTOBACILLUS RHAMNOSUS GG 1 CAPSULE. PO SCH ×2 (08:17→21:36)
[2018-07-09] MEDS: ASPIRIN ENTERIC COATED 81 MG TABLET.DR. PO SCH (08:17)
[2018-07-09] MEDS: VITAMIN B COMPLEX CAPSULE. PO SCH ×2 (08:17→21:36)
[2018-07-09] MEDS: lamoTRIgine 100 MG TABLET. PO SCH ×2 (08:17→21:36)
[2018-07-09] MEDS: LORazepam 0.5 MG TABLET PO PRN ×2 (08:17→14:58)
[2018-07-09] MEDS: FAMOTIDINE 20 MG TABLET PO SCH (08:18)
[2018-07-09] MEDS: VANCOMYCIN 125 MG/2.5 ML ORAL SOLUTION. PO SCH ×4 (08:19→21:37)
[2018-07-09] MEDS ORDERED: fentaNYL 25MCG/HR 1 PATCH PATCH TD SCH (09:00)
[2018-07-09 11:00] VITALS: BP 110/64
[2018-07-09 16:01] VITALS: BP 110/62
[2018-07-09 19:50] VITALS: BP 116/69
--- NOTE | 2018-07-09 21:18 | PN ---
DATE: 07/09/2018 SUBJECTIVE: A 57-year-old female in with severe problems with chronic diarrhea, extreme weight loss. She has been diagnosed with C. difficile colitis, severe protein malnutrition. The patient is feeling somewhat better today. Her number of stools according to the patient has somewhat diminished down to 2 a day, some slight formation using Coon protocol, utilizing IV Metro along with the oral vancomycin and some severe cases and her white count has come down from 15 down to 8, so there is some improvement. She does feel a little bit stronger. Potassium is staying up to 4.8, sodium 133, glucose 107, calcium slightly low at 7.03, but her protein has been low at 2.6. Discussed with . His questions were answered. In any case, the patient is making good progress. PHYSICAL EXAMINATION: VITAL SIGNS: Blood pressure 110/60, respiratory rate 20, pulse 95, low grade temperature of 99.6. ABDOMEN: Soft, diffuse tenderness, slight guarding, but no rebounding, positive bowel sounds present. EXTREMITIES: No clubbing, cyanosis, or edema. The patient is doing somewhat better overall, but still very weak, still needs aggressive therapy for her C. diff and colitis as indicated per Dr. Borges. I also started her on procalamine given additional nutritional supplementation. The patient is otherwise making good progress and continued to be monitored by Dr. Borges. DREW BARR MD DR: ALVIN/arsalan JOB#: [id number] / [id number]
[2018-07-09] MEDS: ZOLPIDEM 5 MG TABLET. PO SCH (21:36)
[2018-07-09] MEDS ORDERED: CALCIUM CARBONATE 500 MG TAB.CHEW PO PRN (22:45)
[2018-07-10 00:35] VITALS: BP 106/66
[2018-07-10 05:00] VITALS: BP 136/80
[2018-07-10 06:46] LABS: BASO % 0 % (0-3); EOS # 0.1 x10^3/uL (0.0-0.7); EOS % 1 % (0-3); HEMATOCRIT 37.8 % (36.0-47.0); HEMOGLOBIN 12.7 g/dL (12.0-15.5); LYMPH # 1.6 x10^3/uL (1.0-4.8); LYMPH % 15 % (24-48); MEAN CORPUSCULAR HEMOGLOBIN 31 pg (25-35); MEAN CORPUSCULAR HGB CONC 34 g/dL (31-37); MEAN CORPUSCULAR VOLUME 92 fL (79-100); MONO # 1.1 x10^3/uL (0.0-1.1); MONO % 10 % (0-9); NEUT % 75 % (31-73); PLATELET COUNT 616 x10^3/uL (140-400); RED BLOOD COUNT 4.12 x10^6/uL (3.50-5.40); RED CELL DISTRIBUTION WIDTH 15.7 % (11.5-14.5); WHITE BLOOD COUNT 10.7 x10^3/uL (4.0-11.0)
[2018-07-10] MEDS: ONDANSETRON ODT 4 MG TAB.RAPDIS PO PRN ×2 (06:51→13:17)
[2018-07-10 06:53] LABS: CALCIUM 7.6 mg/dL (8.5-10.1); CREATININE 0.6 mg/dL (0.6-1.0); GFR 103.8; POTASSIUM 4.3 mmol/L (3.5-5.1)
[2018-07-10] MEDS: METOCLOPRAMIDE HCL 10 MG/2 ML VIAL. IV SCH ×2 (08:10→12:11)
[2018-07-10] MEDS: FAMOTIDINE 20 MG TABLET PO SCH (08:57)
[2018-07-10] MEDS: VITAMIN B COMPLEX CAPSULE. PO SCH (08:57)
[2018-07-10] MEDS: VANCOMYCIN 125 MG/2.5 ML ORAL SOLUTION. PO SCH ×2 (08:57→13:00)
[2018-07-10] MEDS: MULTIVITAMIN with MINERAL TABLET. PO SCH (08:57)
[2018-07-10] MEDS: LORazepam 0.5 MG TABLET PO PRN (08:57)
[2018-07-10] MEDS: lamoTRIgine 100 MG TABLET. PO SCH (08:58)
[2018-07-10] MEDS: LACTOBACILLUS RHAMNOSUS GG 1 CAPSULE. PO SCH (08:58)
[2018-07-10] MEDS: ASPIRIN ENTERIC COATED 81 MG TABLET.DR. PO SCH (08:58)
[2018-07-10 11:20] VITALS: BP 94/61
[2018-07-10] MEDS ORDERED: VANC125C3 PO (14:53)
[2018-07-10] MEDS ORDERED: HYDR-2155 PO (14:54)
[2018-07-10] MEDS ORDERED: LORA0.5T PO (14:54)
[2018-07-10] MEDS ORDERED: CHOLECALCIFEROL (VITAMIN D3) 50,000 UNIT CAPSULE PO SCH (15:15)
--- NOTE | 2018-07-10 15:34 | NUR ---
Discharge Note: FRANTZ JOE [address] Discharge instructions and discharge home medications reviewed with patient and a copy given. All questions have been answered and understanding verbalized. The following instructions and handouts were given: medications, follow up instructions, prescriptions and educational handouts given. Discontinued lines and drains: peripheral IV discontinued with no complications. Patient discharged to home with via private vehicle.
--- NOTE | 2018-07-10 16:40 | DS ---
DATE OF DISCHARGE: 07/10/2018 HOSPITAL COURSE: The patient is a 57-year-old female patient, who was admitted originally on 07/06/2018 with complaints of recurrent bouts of nausea, vomiting and diarrhea, started about 6 days prior to admission. She has been sick for almost 2 weeks and she has lost about 20 pounds; however, she denied any fever or chills, or rigors. She did complain of nausea and did complain of dizziness and lightheadedness. She apparently was treated urinary tract infection with clindamycin. She has a history of Helicobacter pylori in 2013. However, she has not had any problem since then. She was investigated in the Emergency Room and eventually, her stool for C. diff toxins. On admission, her white cell count was high at 15,700. She was also dehydrated and we did start her on IV fluid and eventually in procalamine. She was also started on Flagyl 500 mg IV 3 times a day as well as vancomycin 125 mg 4 times a day and she did very well, has had no diarrhea this morning. A decision was made to discharge her home to continue on oral vancomycin for another 10 days. She did have also Vitamin D deficiency. She will be discharged also on ergocalciferol 50,000 international units once a week. PHYSICAL EXAMINATION: GENERAL: When I examined her this afternoon, she looked well and was clearly in no apparent respiratory distress, pale, cachectic, but no jaundice, cyanosis, or thyromegaly. No jugular venous distension. No limb edema. VITAL SIGNS: Her heart rate was 86, blood pressure was 94/61, temperature was 97, respiratory rate was 18 and oxygen saturation was 97%. HEAD, EYES, EARS, NOSE AND THROAT: Normocephalic, atraumatic. NECK: Supple. HEART: Showed normal first and second sounds. No gallop, rub or murmur. CHEST: Clear to auscultation. No crepitation or rhonchi. ABDOMEN: Distended, soft, nontender. No guarding or rigidity. No organomegaly. All hernial orifice intact. Bowel sounds normal. NEUROLOGIC: She was awake, alert, responding appropriately. All cranial nerves intact. She moves extremities without difficulty. She ambulates without assistance or assistive devices. Her intake was 2100, and output is incompletely recorded. LABORATORY DATA: Her lab work this morning showed a serum sodium 137, potassium 4.3, chloride 103, bicarbonate 28, anion gap of 6, BUN 5, creatinine 0.6, estimated GFR was 104 mL per minute. Her glucose was 90, calcium was 7.6. Her white cell count is down to 10,700, hemoglobin 13, hematocrit 38, MCV 92, and platelet count of 616,000. Her vitamin B12 was 1244 picogram over 25-hydroxy vitamin D was only 11.8. Her influenza A and B were negative. Urinalysis was unremarkable and toxic screen was negative. She will be discharged home to continue on following medications: Hydrocodone/APAP 5/325 one tablet every 6 hours as needed for 7 days, lorazepam 0.5 mg p.o. q.i.d. for 7 days, vancomycin 125 mg 4 times a day for 10 days. She will continue also on aspirin 81 mg once a day, hydroxyzine 25 mg 3 times a day, lamotrigine 100 mg twice a day, multivitamin 1 tablet once a day, naproxen 500 mg twice a day as needed for pain, ondansetron for Zofran 4 mg as needed every 6 hours, Protonix 40 mg daily, tizanidine 4 mg every 8 hours, valacyclovir for Valtrex 1000 mg daily p.r.n. for herpes simplex, vitamin B complex 1 capsule daily p.o. b.i.d., Ambien 5 mg at bedtime. FINAL DISCHARGE DIAGNOSES: Clostridium difficile colitis, responding to IV. Total oral vancomycin. Other medical problems include morbid obesity, treated with gastric bypass surgery, history of Helicobacter pylori, urinary tract infection. She is known to have hypothyroidism, TIA, migraine headache and cerebrovascular accident. JASEN TALAVERA MD DR: GUERITA/arsalan JOB#: [id number] / [id number]
== END 2018-07-10 15:30 | disposition home or self-care (01) | DRG 871 ==
LOC: ER 00:13 → 1 SOUTH 02:00
PROVIDERS: ADMIT Internal Medicine; ATTEND Internal Medicine
DX: A41.9 Sepsis, unspecified organism (principal); E43 Unspecified severe protein-calorie malnutrition; A04.72 Enterocolitis due to Clostridium difficile, not specified as recurrent; Z68.1 Body mass index [BMI] 19.9 or less, adult; N17.9 Acute kidney failure, unspecified; N39.0 Urinary tract infection, site not specified; E03.9 Hypothyroidism, unspecified; E55.9 Vitamin D deficiency, unspecified; E66.01 Morbid (severe) obesity due to excess calories; E86.0 Dehydration; E87.6 Hypokalemia; F17.210 Nicotine dependence, cigarettes, uncomplicated; G43.909 Migraine, unspecified, not intractable, without status migrainosus; Z82.3 Family history of stroke; Z86.19 Personal history of other infectious and parasitic diseases; Z86.73 Personal history of transient ischemic attack (TIA), and cerebral infarction without residual deficits; Z90.710 Acquired absence of both cervix and uterus; Z98.84 Bariatric surgery status; Z90.49 Acquired absence of other specified parts of digestive tract; Z90.722 Acquired absence of ovaries, bilateral
CPT/HCPCS: 36415; 74022; 74177; 80048; 80076; 80307; 81001; 81025; 82150; 82306; 82607; 83690; 83735; 84484; 85007; 85025; 85027; 85610; 85730; 87493; 87804; 93005; 96361; 96365; 96375; J2405; J2765; J3010; J3490; J7120; Q0162; Q9966; Q9967; 99285-25

== ENCOUNTER 2018-08-07 17:46 | Emergency (ER) | payer OTHER ==
[~2018-08-07] VITALS: Ht 154.9 cm; Wt 43.5 kg
[~2018-08-07 17:46] MED LIST changes: +ASPI-612 PO; +HYDR-2155 PO; +LORA0.5T PO; +NAPR-514 PO; +ONDA4TAB7 PO; +VALA10005 PO; +VANC125C3 PO; +VITA1CAP7 PO
[2018-08-07 18:00] VITALS: BP 123/90
[2018-08-07] MEDS ORDERED: KETOROLAC 15 MG/ML VIAL. IM ONE (18:30)
--- NOTE | 2018-08-07 18:35 | PHYS DOC ---
Past History Past Medical History: CVA, Migraines, TIA, Other Past Surgical History: Cholecystectomy, Gastric Bypass, Hysterectomy, Other Smoking: Cigarettes Alcohol Use: Occasionally Drug Use: None Adult General Chief Complaint Chief Complaint: MECHANICAL FALL HPI HPI Patient is a 57 year old female who presents with left knee, right wrist, right shoulder and right hip pain after a mechanical fall this evening. Patient and her were moving boxes into their new house today when the patient tripped on an uneven concrete step outside. The fell on her left knee, caught herself with outstretched arms and then rolled onto her right side. Patient denies any dizziness, chest pain, palpitations or lightheadedness preceding the fall. She has a small abrasion on her right shoulder but states she is able to move it with minimal increase in pain. She is concerned because her left knee has small nodule on the lateral aspect of it that appeared after the fall. Patient did not hit her head and denies loss of consciousness. She takes a baby aspirin. Denies numbness, paresthesias or loss of function of any extremity. She and her are also concerned for a rash which has been ongoing for last 10 days upon moving into their new home. Rash is location primarily along her right forearm and b/l legs that has been intensely pruritic. They believe it is likely due to bug bites. Denies fever/chills. is only other individual in home and denies any rash or pruritus. Review of Systems Review of Systems Constitutional: Denies fever or chills [] Eyes: Denies changes in vision or diplopia [] Respiratory: Denies cough or shortness of breath [] Cardiovascular: Denies chest pain or palpitations [] GI: Denies abdominal pain, nausea, vomiting, or diarrhea [] Musculoskeletal: Reports right shoulder, wrist and hip pain. Reports left knee pain, swelling and new swollen area to knee Integument: Reports skin rash on right UE and b/l LE [] Neurologic: Denies headache, focal weakness or sensory changes [] Complete review of systems found to be within normal limits, except as documented in this note. Allergies Allergies Allergies Coded Allergies Type Severity Reaction Last Updated Verified No Known Allergies Allergy Unknown 12/01/17 Yes Physical Exam Physical Exam Constitutional: Frail appearing female in no apparent distress [] HENT: Normocephalic, atraumatic. [] Eyes: EOMI, conjunctiva normal, no discharge. [] Neck: Normal range of motion, no tenderness, supple Cardiovascular: Heart rate regular rhythm, grade +1 systolic murmur at right sternal border [] Lungs & Thorax: Bilateral breath sounds clear to auscultation [] Abdomen: Soft and nontender. Right hip tender to compression, pelvis stable Skin: Multiple grouped 2-4 mm excoriated scabs with surrounding erythema noted along ulnar aspect of right forearm at the elbow as well as b/l LE, no finger webbing involvement [] Back: No tenderness, no CVA tenderness. [] Extremities: Left knee full range of motion with pain, no joint laxity, tenderness and ecchymosis noted to distal patella with overlying abrasions, no signifiacant swelling although there is a 2.5 cm tender prominence noted on the lateral tibia just anterior to fibular head. UE full range of motion b/l with some pain on palpation of right humeral head and right scaphoid. No swelling or ecchymosis. Radial, dorsalis pedis and posterior tibial pulses intact b/l. Sensation grossly intact. [] Neurologic: Alert and oriented, normal motor function, normal sensory function, no focal deficits noted. [] Psychologic: Affect normal, judgement normal, mood normal. [] Current Patient Data Vital Signs Vital Signs Date Time Temp Pulse Resp B/P (MAP) Pulse Ox O2 Delivery O2 Flow Rate FiO2 08/07/18 18:00 98.8 90 22 98 Room Air EKG EKG [] Radiology/Procedures Radiology/Procedures PROCEDURE: WRIST 3V RIGHT Three-view right wrist radiographs 08/07/2018 CLINICAL HISTORY: Fall with injury to right wrist. PA, lateral and oblique digital radiographs of theright wrist were obtained. No fracture or dislocation of the right wrist is seen. Moderate to severe degenerative changes are seen involving the radial aspect of the mid carpal joint. IMPRESSION: No fracture or dislocation of the right wrist is seen. Electronically signed by: Aman Ayala MD (08/07/2018 10:08 PM) [facility] PROCEDURE: KNEE LEFT 3V Three-view left knee radiographs 08/07/2018 CLINICAL HISTORY: Fall with injury to the left knee. AP, lateral and oblique digital radiographs of the left knee were obtained. Bone screws associated with ACL repair are seen. Lucency and irregularity is seen involving the inferior aspect of the left patella which may represent nondisplaced fracture. Clinical correlation is recommended. No Additional fracture is seen. Mild degenerative changes are seen involving all 3 compartments of the left knee. IMPRESSION: Question nondisplaced fracture of the inferior aspect of the left patella. Electronically signed by: Aman Ayala MD (08/07/2018 10:06 PM) [facility] PROCEDURE: HIP RIGHT 1 VIEW WITH PELVIS AP pelvis to include AP and lateral radiographs of the right hip 08/07/2018 CLINICAL HISTORY: Fall with pelvic and right hip pain. An AP digital radiograph of the pelvis to include both hips was obtained. AP and lateral digital radiographs of the right hip were obtained. No pelvic bone fracture is seen. Both hips are intact. Specifically no fracture or dislocation of the right hip is seen. Mild degenerative changes are seen involving the SI joints and both hips. IMPRESSION: No fracture or dislocation is seen. Electronically signed by: Aman Ayala MD (08/07/2018 10:33 PM) [facility] PROCEDURE: SHOULDER 2+V RIGHT Three-view right shoulder radiographs 08/07/2018 CLINICAL HISTORY: Fall with injury to the right shoulder. AP internal and external rotation and transscapular digital radiographs of the right shoulder were obtained. No fracture or dislocation of the right shoulder is seen. Mild degenerative changes are seen involving the right glenohumeral joint and right AC joint. IMPRESSION: No fracture or dislocation of the right shoulder is seen. Electronically signed by: Aman Ayala MD (08/07/2018 10:31 PM) [facility] Course & Med Decision Making Course & Med Decision Making Pertinent Imaging studies reviewed. (See chart for details) Patient is a 57 year old female who presents with left knee, right shoulder, right wrist and right hip pain following a mechanical fall after tripping on a step outside her house. X-rays of shoulder, wrist, hip and pelvis show no evidence of acute fracture or osseous deformity. X-ray of the left knee showed evidence of nondisplaced to very mildly displaced patellar fracture. Patient's pain was addressed with interval improvement. She has also been complaining of a pruritic rash along the right elbow and b/l LE especially at ankles that began after moving into her new house that appears to be consistent with bug bites. Appears to be possible chigger bites. Patient was given PO dexamethasone in ED and will be provided with prednisone Rx for pruritus association with these bites. Patient's knee placed into an immobilizer and abrasions administered wound care. She will also be provided with crutches and short term Rx for opioid analgesics. Patient instructed to followup with orthopedic surgeon. Patient stable for discharge with outpatient follow-up with PCP/Orthopedic surgeon. Orthopedic surgeon referral provided. Discussed findings and plan with patient and family, who acknowledge understanding and agreement. [] Dragon Disclaimer Dragon Disclaimer This electronic medical record was generated, in whole or in part, using a voice recognition dictation system. Splinting Splinting : Location: Left knee Pre-Made Type: knee immobilizer Pre-Proc Neuro Vasc Exam: normal Post-Proc Neuro Vasc Exam: normal, unchanged from pre-exam Departure Departure: Impression: Primary Impression: Fall Additional Impressions: Patella fracture Right shoulder strain Right wrist sprain Insect bite Disposition: HOME, SELF-CARE Condition: STABLE Referrals: SANTOS BRADSHAW (PCP) TIARRA GONZALEZ MD Patient Instructions: Crutch Use, [id number], Fall Prevention and Home Safety, [id number], Insect Bite, Corc-ga-[id number], Patellar Fracture, Adult, Strain-SportsMed Scripts Triamcinolone Acetonide (TRIAMCINOLONE ACETONIDE) 15 Gm Cream..g. 1 VIOLETTE TP TID PRN for RASH, #15 GM Prov: SHOLA EVERETT DO 08/07/18 Prednisone (PREDNISONE) 20 Mg Tablet 2 TAB PO DAILY for Insect bite rash, #8 TAB Start this prescription tomorrow, Tuesday08/08/18 Prov: SHOLA EVERETT DO 08/07/18 Oxycodone HCl/Acetaminophen (Percocet 5-325 mg Tablet) 1 Each Tablet 0.5-1 EACH PO TID PRN PRN for PAIN, #10 TAB Prov: SHOLA EVERETT DO 08/07/18 Problem Qualifiers Primary Impression: Fall Encounter type: initial encounter Qualified Codes: W19.XXXA - Unspecified fall, initial encounter Additional Impressions: Patella fracture Encounter type: initial encounter Fracture type: closed Fracture morphology: transverse Fracture alignment: nondisplaced Laterality: left Qualified Codes: S82.035A - Nondisplaced transverse fracture of left patella, initial encounter for closed fracture Right shoulder strain Encounter type: initial encounter Qualified Codes: S46.911A - Strain of unspecified muscle, fascia and tendon at shoulder and upper arm level, right arm, initial encounter Right wrist sprain Encounter type: initial encounter Qualified Codes: S63.501A - Unspecified sprain of right wrist, initial encounter Insect bite Encounter type: initial encounter Site of insect bite: unspecified site Qualified Codes: W57.XXXA - Bitten or stung by nonvenomous insect and other nonvenomous arthropods, initial encounter SHOLA EVERETT DO August 07, 2018 18:35
[2018-08-07] MEDS ORDERED: DEXAMETHASONE 4 MG TABLET PO ONE (18:45)
[2018-08-07] MEDS ORDERED: NEOMY/BACITR/POLYMYXIN OINT PACKET. TP ONE (19:45)
[2018-08-07] MEDS ORDERED: PRED20TA PO (19:56)
[2018-08-07] MEDS ORDERED: OXYC-325 PO (19:56)
[2018-08-07] MEDS ORDERED: TRIA15CR2 TP (19:56)
--- NOTE | 2018-08-07 22:09 | RAD ---
Three-view left knee radiographs 08/07/2018 CLINICAL HISTORY: Fall with injury to the left knee. AP, lateral and oblique digital radiographs of the left knee were obtained. Bone screws associated with ACL repair are seen. Lucency and irregularity is seen involving the inferior aspect of the left patella which may represent nondisplaced fracture. Clinical correlation is recommended. No Additional fracture is seen. Mild degenerative changes are seen involving all 3 compartments of the left knee. IMPRESSION: Question nondisplaced fracture of the inferior aspect of the left patella. Electronically signed by: Aman Ayala MD (08/07/2018 10:06 PM) [facility]
--- NOTE | 2018-08-07 22:11 | RAD ---
Three-view right wrist radiographs 08/07/2018 CLINICAL HISTORY: Fall with injury to right wrist. PA, lateral and oblique digital radiographs of theright wrist were obtained. No fracture or dislocation of the right wrist is seen. Moderate to severe degenerative changes are seen involving the radial aspect of the mid carpal joint. IMPRESSION: No fracture or dislocation of the right wrist is seen. Electronically signed by: Aman Ayala MD (08/07/2018 10:08 PM) [facility]
--- NOTE | 2018-08-07 22:34 | RAD ---
Three-view right shoulder radiographs 08/07/2018 CLINICAL HISTORY: Fall with injury to the right shoulder. AP internal and external rotation and transscapular digital radiographs of the right shoulder were obtained. No fracture or dislocation of the right shoulder is seen. Mild degenerative changes are seen involving the right glenohumeral joint and right AC joint. IMPRESSION: No fracture or dislocation of the right shoulder is seen. Electronically signed by: Aman Ayala MD (08/07/2018 10:31 PM) [facility]
--- NOTE | 2018-08-07 22:36 | RAD ---
AP pelvis to include AP and lateral radiographs of the right hip 08/07/2018 CLINICAL HISTORY: Fall with pelvic and right hip pain. An AP digital radiograph of the pelvis to include both hips was obtained. AP and lateral digital radiographs of the right hip were obtained. No pelvic bone fracture is seen. Both hips are intact. Specifically no fracture or dislocation of the right hip is seen. Mild degenerative changes are seen involving the SI joints and both hips. IMPRESSION: No fracture or dislocation is seen. Electronically signed by: Aman Ayala MD (08/07/2018 10:33 PM) [facility]
== END 2018-08-07 20:00 | disposition home or self-care (01) ==
LOC: ER 17:46
DX: S82.092A Other fracture of left patella, initial encounter for closed fracture (principal); S46.911A Strain of unspecified muscle, fascia and tendon at shoulder and upper arm level, right arm, initial encounter; S63.501A Unspecified sprain of right wrist, initial encounter; S50.361A Insect bite (nonvenomous) of right elbow, initial encounter; S80.862A Insect bite (nonvenomous), left lower leg, initial encounter; S80.861A Insect bite (nonvenomous), right lower leg, initial encounter; G43.909 Migraine, unspecified, not intractable, without status migrainosus; F17.210 Nicotine dependence, cigarettes, uncomplicated; Z86.73 Personal history of transient ischemic attack (TIA), and cerebral infarction without residual deficits; Z98.84 Bariatric surgery status; W57.XXXA Bitten or stung by nonvenomous insect and other nonvenomous arthropods, initial encounter; W01.0XXA Fall on same level from slipping, tripping and stumbling without subsequent striking against object, initial encounter; Y93.89 Activity, other specified; Y92.89 Other specified places as the place of occurrence of the external cause; Y99.8 Other external cause status
CPT/HCPCS: 29505; 73030; 73110; 73501; 73562; 96372; 99284; J1885; J8540

== ENCOUNTER 2018-08-16 15:55 | Emergency (ER) | payer OTHER ==
[~2018-08-16] VITALS: Ht 154.9 cm; Wt 46.3 kg
[~2018-08-16 15:55] MED LIST changes: +OXYC-325 PO; +PRED20TA PO; +TRIA15CR2 TP
[2018-08-16 16:15] VITALS: BP 109/78
[2018-08-16] MEDS ORDERED: HYDR25TA PO (16:44)
[2018-08-16] MEDS ORDERED: METH4TAB2 PO (16:44)
[2018-08-16] MEDS ORDERED: PERM60CR12 TP (16:44)
--- NOTE | 2018-08-16 16:44 | PHYS DOC ---
Past History Past Medical History: Stroke, TIA Past Surgical History: Cholecystectomy, Gastric Bypass, Hysterectomy Smoking: Cigarettes Additional Smoking Information: 03/29 PPD FOR 30 YEARS Alcohol Use: None Drug Use: None Adult General Chief Complaint Chief Complaint: ALLERGIC REACTION HPI HPI Patient is a 57 year old female who presents with complaint of possible allergic reaction. Patient states that she has been having severe itching to her skin over the past 2 weeks. States that she started having itching to the lower extremities. Since onset she has had spread of itching across her upper extremities, trunk, and neck. States that the itching is very severe and patient has been scratching skin off of her body. Patient is concerned that she may have some type of insect or mite that is causing this. Patient states that she recently moved back into a property that she is concerned may be interested. Patient patient's sleep on same bed. has not had similar symptoms. Was seen at her primary care physician's office by an advanced practice provider less than a week ago and was started on triamcinolone cream for treatment at that time. States that the symptoms are not getting any better. states that he pulled what appeared to be a clear mite out of one of the lesions 2 days ago. Patient currently wearing a left knee immobilizer due to recent patellar fracture. Review of Systems Review of Systems Constitutional: Denies fever or chills [] Eyes: Denies change in visual acuity, redness, or eye pain [] HENT: Denies nasal congestion or sore throat [] Respiratory: Denies cough or shortness of breath [] Cardiovascular: Denies chest pain or edema[] GI: Denies abdominal pain, nausea, vomiting, bloody stools or diarrhea [] : Denies dysuria or hematuria [] Musculoskeletal: Denies back pain or joint pain [] Integument: Skin rash[] Neurologic: Denies headache, focal weakness or sensory changes [] All other systems were reviewed and found to be within normal limits, except as documented in this note. Allergies Allergies Allergies Coded Allergies Type Severity Reaction Last Updated Verified No Known Allergies Allergy Unknown 12/01/17 Yes Physical Exam Physical Exam Constitutional: Alert, afebrile, appears in [id number] discomfort. [] HENT: Normocephalic, atraumatic, bilateral external ears normal, oropharynx moist, no oral exudates, nose normal. [] Eyes: PERRLA, EOMI, conjunctiva normal, no discharge. [] Neck: Normal range of motion, no tenderness, supple, no stridor. [] Cardiovascular:Heart rate regular rhythm, no murmur [] Lungs & Thorax: Bilateral breath sounds clear to auscultation [] Abdomen: Bowel sounds normal, soft, no tenderness, no masses, no pulsatile m asses. [] Skin: Warm, dry, diffuse excoriations across the neck, chest, bilateral upper and lower extremities, there are occasional tunneled lesions of the extremities. [] Back: No tenderness, no CVA tenderness. [] Extremities: Knee immobilizer present on left lower extremity, no cyanosis, no clubbing, ROM intact, no edema. [] Neurologic: Alert and oriented X 3, normal motor function, normal sensory function, no focal deficits noted. [] Current Patient Data Vital Signs Vital Signs Date Time Temp Pulse Resp B/P (MAP) Pulse Ox O2 Delivery O2 Flow Rate FiO2 08/16/18 16:15 97.6 72 16 97 Room Air Lab Results Not performed EKG EKG Not performed[] Radiology/Procedures Radiology/Procedures Not performed[] Course & Med Decision Making Course & Med Decision Making Pertinent Labs and Imaging studies reviewed. (See chart for details) The patient's history and exam are highly suspicious for cutaneous scabies infestation. Patient was prescribed permethrin cream for application tonight. Prescribed Medrol dosepak and Atarax to help with pruritus symptoms. Patient has an appointment with her physician tomorrow and advised to keep this appointment as scheduled. Given loading dose of Solu-Medrol in the emergency department. Advised return to emergency department for any worsening symptoms. Patient was understanding and in agreement with treatment plan.[] Dragon Disclaimer Dragon Disclaimer This electronic medical record was generated, in whole or in part, using a voice recognition dictation system. Departure Departure: Impression: Primary Impression: Scabies Disposition: 01 HOME, SELF-CARE Condition: STABLE Referrals: SANTOS BRADSHAW (PCP) Patient Instructions: Scabies Additional Instructions: Follow-up with your primary doctor tomorrow as scheduled. Return to the emergency department for any worsening symptoms. Scripts Hydroxyzine Hcl (HYDROXYZINE HCL) 25 Mg Tablet 1 TAB PO QID PRN for ITCHING, #30 TAB Prov: RU JAY MD 08/16/18 Methylprednisolone (MEDROL) 4 Mg Tab.ds.pk 1 PKG PO UD, #1 PKG Prov: RU JAY MD 08/16/18 Permethrin (PERMETHRIN) 60 Gm Cream..g. 1 VIOLETTE TP ONCE, #60 GM 1 Refill May reapply in one week if symptoms have not resolved. Prov: RU JAY MD 08/16/18 RU JAY MD August 16, 2018 16:44
[2018-08-16] MEDS ORDERED: methylPREDNISolone SOD SUCC PF 125 MG/2 ML VIAL. IM ONE (16:45)
== END 2018-08-16 17:05 | disposition home or self-care (01) ==
LOC: ER 15:55
DX: B86 Scabies (principal); Z86.73 Personal history of transient ischemic attack (TIA), and cerebral infarction without residual deficits; F17.200 Nicotine dependence, unspecified, uncomplicated
CPT/HCPCS: 96372; 99283; J2930

== ENCOUNTER 2018-09-07 16:47 | Emergency (ER) | payer OTHER ==
[~2018-09-07 16:47] MED LIST changes: +METH4TAB2 PO; +PERM60CR12 TP
[2018-09-07 17:12] VITALS: BP 111/69
--- NOTE | 2018-09-07 18:03 | PHYS DOC ---
Past History Past Medical History: Stroke, TIA, Other Additional Past Medical Histor: insomnia, patella fracture Past Surgical History: Cholecystectomy, Gastric Bypass, Hysterectomy Smoking: Cigarettes Alcohol Use: None Drug Use: None Adult General Chief Complaint Chief Complaint: MULTIPLE COMPLAINTS HPI HPI Patient is a 57-year-old female presents after a syncopal episode that happened at home. Patient was feeling weak, lightheaded, like she needed to have something to eat. She felt "fuzzy in my head." She was witnessed as she was going down, she was caught by her . She did not strike her head. She was lowered to a couch, woke up several minutes later. No loss of bowel or bladder control. No seizure activity appreciated. Patient does have issues with needing to eat frequently since having gastric reduction surgery. She has no nausea or vomiting. No diaphoresis.[] Review of Systems Review of Systems Constitutional: Denies fever or chills [] Eyes: Denies change in visual acuity, redness, or eye pain [] HENT: Denies nasal congestion or sore throat [] Respiratory: Denies cough or shortness of breath [] Cardiovascular: No chest pain or palpitations[] GI: Denies abdominal pain, nausea, vomiting, bloody stools or diarrhea [] : Denies dysuria or hematuria [] Musculoskeletal: Denies back pain or joint pain [] Integument: Denies rash or skin lesions [] Neurologic: Denies headache, focal weakness or sensory changes [] Endocrine: Denies polyuria or polydipsia [] All other systems were reviewed and found to be within normal limits, except as documented in this note. Current Medications Current Medications Current Medications Medications (Trade) Dose Ordered Sig/Anai Start Time Stop Time Status Last Admin Dose Admin Sodium Chloride 1,000 ml @ 1,000 mls/hr 1X ONCE 09/07/18 17:45 09/07/18 18:44 Allergies Allergies Allergies Coded Allergies Type Severity Reaction Last Updated Verified No Known Allergies Allergy Unknown 12/01/17 Yes Physical Exam Physical Exam Constitutional: Well developed, well nourished, no acute distress, non-toxic appearance. [] HENT: Normocephalic, atraumatic, bilateral external ears normal, oropharynx moist, no oral exudates, nose normal. [] Eyes: PERRLA, EOMI, conjunctiva normal, no discharge. [] Neck: Normal range of motion, no tenderness, supple, no stridor. [] Cardiovascular:Heart rate regular rhythm, no murmur [] Lungs & Thorax: Bilateral breath sounds clear to auscultation [] Abdomen: Bowel sounds normal, soft, no tenderness, no masses, no pulsatile masses. [] Skin: Warm, dry, no erythema, no rash. [] Back: No tenderness, no CVA tenderness. [] Extremities: Left lower extremity is in a in immobilizer. She is distal neurovascularly intact bilaterally. The other extremities show: No tenderness, no cyanosis, no clubbing, ROM intact, no edema. [] Neurologic: Alert and oriented X 3, normal motor function, normal sensory function, no focal deficits noted. NIH stroke scale of 0, normal rapid repetitive and alternating movements.[] Psychologic: Affect normal, judgement normal, mood normal. [] Current Patient Data Vital Signs Vital Signs Date Time Temp Pulse Resp B/P (MAP) Pulse Ox O2 Delivery O2 Flow Rate FiO2 09/07/18 17:12 98.7 105 20 98 Room Air EKG EKG EKG shows a sinus rhythm at 84 bpm, normal axis, QTC of 417 ms, no ST elevation. Interpreted by me at 1813.[] Radiology/Procedures Radiology/Procedures Examination: CT HEAD WO CONTRAST History: Syncope, weakness, lightheadedness Comparison/Correlation: 05/28/2018 CT head without contrast Findings: Axial images of the head were obtained without contrast. Mild atrophy present. No intracranial hemorrhage, midline shift, or mass effect. Globes and optic nerves are unremarkable. Bony structures are unremarkable. Lack of development of the right frontal sinus noted. Impression: No acute process.[] Course & Med Decision Making Course & Med Decision Making Pertinent Labs and Imaging studies reviewed. (See chart for details) Medical decision making: Patient with syncopal episode. No evidence of this being an acute coronary syndrome, no evidence of any electrolyte abnormality. No rhythm disturbance while she's been on the monitor in the emergency department. This may be dehydration related, also noted that her hemoglobin is 1 point lower than her usual baseline. She is being admitted for further evaluation and treatment.[] Dragon Disclaimer Dragon Disclaimer This electronic medical record was generated, in whole or in part, using a voice recognition dictation system. Departure Departure: Impression: Primary Impression: Syncope Disposition: ADMITTED INPATIENT Admitting Physician: Bridger Borges Condition: IMPROVED Referrals: SANTOS BRADSHAW (PCP) Problem Qualifiers Primary Impression: Syncope Syncope type: unspecified Qualified Codes: R55 - Syncope and collapse ANIBAL UNGER DO Sep 07, 2018 18:02
[2018-09-07 18:13] LABS: BASO # 0.1 x10^3/uL (0.0-0.2); BASO % 1 % (0-3); EOS # 0.1 x10^3/uL (0.0-0.7); EOS % 1 % (0-3); HEMATOCRIT 32.7 % (36.0-47.0); LYMPH # 2.3 x10^3/uL (1.0-4.8); LYMPH % 29 % (24-48); MEAN CORPUSCULAR HEMOGLOBIN 32 pg (25-35); MEAN CORPUSCULAR HGB CONC 34 g/dL (31-37); MEAN CORPUSCULAR VOLUME 95 fL (79-100); MONO # 0.6 x10^3/uL (0.0-1.1); MONO % 7 % (0-9); NEUT % 62 % (31-73); PLATELET COUNT 442 x10^3/uL (140-400); RED BLOOD COUNT 3.46 x10^6/uL (3.50-5.40); WHITE BLOOD COUNT 8.1 x10^3/uL (4.0-11.0)
--- NOTE | 2018-09-07 18:16 | EKG ---
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
--- NOTE | 2018-09-07 18:28 | RAD ---
Examination: CT HEAD WO CONTRAST History: Syncope, weakness, lightheadedness Comparison/Correlation: 05/28/2018 CT head without contrast Findings: Axial images of the head were obtained without contrast. Mild atrophy present. No intracranial hemorrhage, midline shift, or mass effect. Globes and optic nerves are unremarkable. Bony structures are unremarkable. Lack of development of the right frontal sinus noted. Impression: No acute process. PQRS Compliance Statement: One or more of the following individualized dose reduction techniques were utilized for this examination: 1. Automated exposure control 2. Adjustment of the mA and/or kV according to patient size 3. Use of iterative reconstruction technique Electronically signed by: Tyrone Arteaga MD (09/07/2018 6:26 PM) [id number]
[2018-09-07] MEDS: IV NORMAL SALINE 1,000ML 1,000 ML IV ONE (18:31)
[2018-09-07 18:36] LABS: ALBUMIN 3.2 g/dL (3.4-5.0); ALBUMIN/GLOBULIN RATIO 1.1 (1.0-1.7); CALCIUM 8.5 mg/dL (8.5-10.1); CREATININE 0.7 mg/dL (0.6-1.0); GFR 86.9; MAGNESIUM 2.2 mg/dL (1.8-2.4); TOTAL BILIRUBIN 0.1 mg/dL (0.2-1.0)
[2018-09-07] MEDS ORDERED: IV NORMAL SALINE 1,000ML 1,000 ML IV SCH (19:05)
[2018-09-07 19:11] LABS: BARBITURATES NEG (NEG); BENZODIAZEPINES NEG (NEG); CANNABINOIDS NEG (NEG); COCAINE NEG (NEG); METHADONE NEG (NEG); OPIATES NEG (NEG); PHENCYCLIDINE NEG (NEG)
[2018-09-07] MEDS ORDERED: ONDANSETRON PF 4 MG/2 ML VIAL. IV PRN (19:15)
[2018-09-07] MEDS ORDERED: ACETAMINOPHEN 325 MG TABLET PO PRN (19:15)
[2018-09-07 19:18] LABS: AMPHETAMINE/METHAMPHETAMINE NEG (NEG)
[2018-09-07 19:26] LABS: BILIRUBIN,URINE NEG (NEG); CLARITY,URINE CLEAR; COLOR,URINE STRAW; GLUCOSE,URINE NEG (NEG); UROBILINOGEN,URINE 0.2 mg/dL (0.2 mg/dL)
[2018-09-07 19:27] LABS: BACTERIA,URINE 0 /HPF (0-FEW); NITRITE,URINE NEG (NEG); RBC,URINE OCC /HPF (0-2); SQUAMOUS EPITHELIAL CELL,UR OCC /LPF; WBC,URINE OCC /HPF (0-4)
--- NOTE | 2018-09-07 21:50 | RAD ---
PORTABLE CHEST 1V History: Syncope, weakness, memory problems Comparison: July 06, 2018 Findings: Single view of the chest is submitted. Heart size is stable, within normal limits. There is no new lobar consolidation, pleural fluid, pneumothorax. There is suspected emphysema. Impression: 1. There is no new infiltrate. There is suspected emphysema. Electronically signed by: Krunal Garcia MD (09/07/2018 9:47 PM) [employer]
== END 2018-09-07 19:25 | disposition left against medical advice (07) ==
LOC: ER 16:47 → 1 SOUTH 19:00 → UNDOADMIN 19:00
DX: R55 Syncope and collapse (principal); R53.1 Weakness; F17.210 Nicotine dependence, cigarettes, uncomplicated; Z86.73 Personal history of transient ischemic attack (TIA), and cerebral infarction without residual deficits; Z98.84 Bariatric surgery status
CPT/HCPCS: 36415; 70450; 71045; 80053; 80307; 81001; 83735; 83880; 84484; 85025; 93005; 96360; 99285-25; J7030

== ENCOUNTER 2018-09-17 16:36 | Emergency (ER) | payer OTHER ==
[~2018-09-17] VITALS: Ht 154.9 cm; Wt 51.9 kg
[2018-09-17] MEDS ORDERED: TETRACAINE 0.5% OPHTH SOLUTION 4ML BOTTLE. ONE (16:49)
[2018-09-17] MEDS ORDERED: FLUORESCEIN 1MG EYE STRIP. ONE (16:49)
[2018-09-17] MEDS ORDERED: FLUORESCEIN 1MG EYE STRIP. OS ONE (17:00)
[2018-09-17] MEDS ORDERED: TETRACAINE 0.5% OPHTH SOLUTION 4ML BOTTLE. OS ONE (17:00)
[2018-09-17 17:02] VITALS: BP 152/83
--- NOTE | 2018-09-17 17:10 | PHYS DOC ---
Past History Past Medical History: Stroke, TIA, Other Additional Past Medical Histor: insomnia, patella fracture Past Surgical History: Cholecystectomy, Gastric Bypass, Hysterectomy Smoking: Cigarettes Alcohol Use: None Drug Use: None Adult General Chief Complaint Chief Complaint: EYE PROBLEMS HPI HPI 57-year-old female presents with left eye irritation and headache. The patient is afraid that she might have actually scratched her eye when she rubbed her face and her ring came across her eye. She was taking a nap and woke up and rubbed dry. Since that time, it has been irritated. She would like to rule out corneal abrasion. The patient is also having a migraine headache for most of the day. She has a history of headaches. She would like to see if a migraine cocktail will help. Normal medicine she's tried have not helped. Finally, the patient complains of skin pruritus due to [place] mites. She has lesions or her lower legs, arms and some on her trunk. She is wondering if there is anything she can do to help him go away faster. She would also like the itching to stop. She denies fever or chills. She has no change in visual acuity. Review of Systems Review of Systems Constitutional: Denies fever or chills [] Eyes: Left eye irritation[] HENT: Denies nasal congestion or sore throat [] Respiratory: Denies cough or shortness of breath [] Cardiovascular: No additional information not addressed in HPI [] GI: Denies abdominal pain, nausea, vomiting, bloody stools or diarrhea [] : Denies dysuria or hematuria [] Musculoskeletal: Denies back pain or joint pain [] Integument: Insect bites[] Neurologic: Headache. Denies focal weakness or sensory changes [] Endocrine: Denies polyuria or polydipsia [] All other systems were reviewed and found to be within normal limits, except as documented in this note. Current Medications Current Medications Current Medications Medications (Trade) Dose Ordered Sig/Anai Start Time Stop Time Status Last Admin Dose Admin Fluorescein Sodium (Ful-Sheyla 1mg) 1 strip 1X ONCE 09/17/18 17:00 09/17/18 17:01 DC 09/17/18 16:53 1 STRIP Tetracaine HCl (Tetracaine) 1 drop 1X ONCE 09/17/18 17:00 09/17/18 17:01 DC 09/17/18 16:53 1 DROP Allergies Allergies Allergies Coded Allergies Type Severity Reaction Last Updated Verified No Known Allergies Allergy Unknown 12/01/17 Yes Physical Exam Physical Exam Constitutional: Well developed, well nourished, no acute distress, non-toxic appearance. [] HENT: Normocephalic, atraumatic, bilateral external ears normal, oropharynx moist, no oral exudates, nose normal. [] Eyes: PERRLA, EOMI, conjunctiva normal, no discharge. Photophobia[] Neck: Normal range of motion, no tenderness, supple, no stridor. [] Cardiovascular:Heart rate regular rhythm, no murmur [] Lungs & Thorax: Bilateral breath sounds clear to auscultation [] Abdomen: Bowel sounds normal, soft, no tenderness, no masses, no pulsatile masses. [] Skin: Multiple macules with various stages of healing and scabbing the patient's bilateral upper extremities, bilateral lower extremities, and back. Consistent with insect bites.[] Back: No tenderness, no CVA tenderness. [] Extremities: No tenderness, no cyanosis, no clubbing, ROM intact, no edema. [] Neurologic: Alert and oriented X 3, normal motor function, normal sensory function, no focal deficits noted. [] Psychologic: Affect normal, judgement normal, mood normal. [] EKG EKG [] Radiology/Procedures Radiology/Procedures [] Course & Med Decision Making Course & Med Decision Making Pertinent Labs and Imaging studies reviewed. (See chart for details) I numbed the patient's left eye with tetracaine and it with fluorescin. A wood's lamp evaluation did not show any abrasions or increased uptake areas. For her headache, give her 1 L normal saline, 30 mg of Toradol, 25 mg of Benadryl, 10 mg of Reglan. I will also give her 125 of Solu-Medrol pruritus. I've advised that she use Pepcid, Leni, and topical cortisone for her insect bites. The patient's labs are remarkable for slightly low potassium and an elevated glucose. She also has a mild anemia. They do not believe any of these are indications for admission. The patient has had some improvement in her headache. She is stable for discharge at this time. [] Dragon Disclaimer Dragon Disclaimer This electronic medical record was generated, in whole or in part, using a voice recognition dictation system. Departure Departure: Impression: Primary Impression: Left eye pain Additional Impressions: Headache, migraine Insect bite, multiple Disposition: 01 HOME, SELF-CARE Condition: STABLE Referrals: SANTOS BRADSHAW (PCP) Patient Instructions: Insect Bite, [id number], Migraine Headache Problem Qualifiers PAN FERRO DO Sep 17, 2018 17:10
[2018-09-17] MEDS ORDERED: diphenhydrAMINE 50 MG/ML VIAL IVP ONE (17:15)
[2018-09-17] MEDS ORDERED: METOCLOPRAMIDE HCL 10 MG/2 ML VIAL. IV ONE (17:15)
[2018-09-17] MEDS ORDERED: KETOROLAC 30 MG/ML VIAL. IV ONE (17:15)
[2018-09-17] MEDS ORDERED: IV NORMAL SALINE 1,000ML 1,000 ML IV ONE (17:15)
[2018-09-17] MEDS ORDERED: methylPREDNISolone SOD SUCC PF 125 MG/2 ML VIAL. IV ONE (17:15)
[2018-09-17 17:29] LABS: BASO % 1 % (0-3); EOS # 0.1 x10^3/uL (0.0-0.7); EOS % 1 % (0-3); HEMATOCRIT 35.9 % (36.0-47.0); HEMOGLOBIN 11.6 g/dL (12.0-15.5); LYMPH # 2.6 x10^3/uL (1.0-4.8); LYMPH % 27 % (24-48); MEAN CORPUSCULAR HEMOGLOBIN 31 pg (25-35); MEAN CORPUSCULAR HGB CONC 32 g/dL (31-37); MEAN CORPUSCULAR VOLUME 95 fL (79-100); MONO # 0.7 x10^3/uL (0.0-1.1); MONO % 7 % (0-9); NEUT # 6.3 x10^3uL (1.8-7.7); NEUT % 65 % (31-73); PLATELET COUNT 397 x10^3/uL (140-400); RED BLOOD COUNT 3.78 x10^6/uL (3.50-5.40); RED CELL DISTRIBUTION WIDTH 15.7 % (11.5-14.5); WHITE BLOOD COUNT 9.8 x10^3/uL (4.0-11.0)
[2018-09-17 17:45] LABS: CALCIUM 8.7 mg/dL (8.5-10.1); CREATININE 0.8 mg/dL (0.6-1.0); GFR 74.5; POTASSIUM 3.3 mmol/L (3.5-5.1); TOTAL BILIRUBIN 0.2 mg/dL (0.2-1.0)
== END 2018-09-17 18:00 | disposition home or self-care (01) ==
LOC: ER 16:36
DX: S80.862A Insect bite (nonvenomous), left lower leg, initial encounter (principal); S80.861A Insect bite (nonvenomous), right lower leg, initial encounter; S40.862A Insect bite (nonvenomous) of left upper arm, initial encounter; S40.861A Insect bite (nonvenomous) of right upper arm, initial encounter; H57.12 Ocular pain, left eye; G43.909 Migraine, unspecified, not intractable, without status migrainosus; F17.210 Nicotine dependence, cigarettes, uncomplicated; Z86.73 Personal history of transient ischemic attack (TIA), and cerebral infarction without residual deficits; W57.XXXA Bitten or stung by nonvenomous insect and other nonvenomous arthropods, initial encounter; Y93.89 Activity, other specified; Y92.89 Other specified places as the place of occurrence of the external cause; Y99.8 Other external cause status
CPT/HCPCS: 36415; 80053; 85025; 96374; 96375; 99284; J1200; J1885; J2765; J2930; J7030

== ENCOUNTER 2018-09-24 16:29 | Emergency (ER) | payer OTHER ==
[~2018-09-24] VITALS: Ht 154.9 cm; Wt 42.9 kg
--- NOTE | 2018-09-24 17:37 | ED.ADGEN ---
Past History Past Medical History: Stroke, TIA, Other Additional Past Medical Histor: insomnia, patella fracture Past Medical History Hypokalemia, C-dif Past Surgical History: Cholecystectomy, Gastric Bypass, Hysterectomy Smoking: Cigarettes Alcohol Use: None Drug Use: None Adult General Chief Complaint Chief Complaint "".. I think I may have C-dif.... or starting to get it again.. this will be the third time... " HPI HPI Patient is a 57 year old female who presents with above hx and complaints diarrhea and generalized abdomen pain. Patient has had C. difficile 2 times previously which responded to Flagyl and or oral vancomycin.. Patient denies any travel. Patient denies any specific ill contacts. who has chronic health/ pain issues has also presented himself to the emergency room today. Patient is concerned because on previous C. difficile episodes became extremely hypokalemic. Patient denies any intake of bad food. Her two dogs Ortiz and Squirt are not ill. Review of Systems Review of Systems Constitutional: Denies fever or chills [] Eyes: Denies change in visual acuity, redness, or eye pain [] HENT: Denies nasal congestion or sore throat [] Respiratory: Denies cough or shortness of breath [] Cardiovascular: No additional information not addressed in HPI [] GI: Complains of generalized abdominal pain, nausea, . Denies vomiting, bloody stools. Complaints of diarrhea [] : Denies dysuria or hematuria [] Musculoskeletal: Denies back pain or joint pain [] Integument: Denies rash or skin lesions [] Neurologic: Denies headache, focal weakness or sensory changes [] Endocrine: Denies polyuria or polydipsia [] All other systems were reviewed and found to be within normal limits, except as documented in this note. Family History Family History Noncontributory Current Medications Current Medications Current Medications Medications (Trade) Dose Ordered Sig/Anai Start Time Stop Time Status Last Admin Dose Admin Famotidine (Pepcid Vial) 20 mg 1X ONCE 09/24/18 18:00 09/24/18 18:01 DC 09/24/18 18:17 20 MG Ketorolac Tromethamine (Toradol 15mg Vial) 30 mg 1X ONCE 09/24/18 18:30 09/24/18 18:31 DC 09/24/18 18:18 30 MG Ketorolac Tromethamine (Toradol 30mg Vial) 30 mg 1X ONCE 09/24/18 18:00 09/24/18 18:01 DC Lactated Ringer's 1,000 ml @ 1,000 mls/hr Q1H 09/24/18 18:00 09/24/18 18:59 DC 09/24/18 18:17 1,000 MLS/HR Metronidazole (Flagyl) 500 mg 1X ONCE 09/24/18 19:30 09/24/18 19:31 DC 09/24/18 19:37 500 MG Metronidazole (Starter Pack - Flagyl) 1 startpack 1X ONCE 09/24/18 19:30 09/24/18 19:31 DC 09/24/18 19:37 1 STARTPACK Ondansetron HCl (Zofran) 8 mg 1X ONCE 09/24/18 18:00 09/24/18 18:01 DC 09/24/18 18:17 8 MG Potassium Chloride (KCl Oral Soln) 40 meq 1X ONCE 09/24/18 19:30 09/24/18 19:31 DC 09/24/18 19:37 40 MEQ Allergies Allergies Allergies Coded Allergies Type Severity Reaction Last Updated Verified No Known Allergies Allergy Unknown 12/01/17 Yes Physical Exam Physical Exam Constitutional: Moderately acute distress, non-toxic appearance. [] HENT: Normocephalic, atraumatic, bilateral external ears normal, oropharynx moist, no oral exudates, nose normal. [] Eyes: PERRLA, EOMI, conjunctiva normal, no discharge. [] Neck: Normal range of motion, no tenderness, supple, no stridor. [] Cardiovascular:Heart rate regular rhythm, no murmur [] Lungs & Thorax: Bilateral breath sounds clear to auscultation [] Abdomen: Bowel sounds hyperactive, soft, generalized tenderness, no masses, no pulsatile masses. [] No focal areas of rebound. Old surgery scars. Skin: Warm, dry, no erythema, no rash. [] Back: No tenderness, no CVA tenderness. [] Extremities: No tenderness, no cyanosis, no clubbing, ROM intact, no edema. [] No psoas sign Neurologic: Alert and oriented X 3, normal motor function, normal sensory function, no focal deficits noted. [] Psychologic: Affect anxious, judgement normal, mood normal. [] Very polite lady. Current Patient Data Vital Signs Vital Signs Date Time Temp Pulse Resp B/P (MAP) Pulse Ox O2 Delivery O2 Flow Rate FiO2 09/24/18 19:45 82 18 141/99 (113) 98 Room Air Lab Results Laboratory Tests Test 09/24/18 17:32 09/24/18 18:10 White Blood Count 9.4 x10^3/uL (4.0-11.0) Red Blood Count 4.19 x10^6/uL (3.50-5.40) Hemoglobin 12.8 g/dL (12.0-15.5) Hematocrit 38.8 % (36.0-47.0) Mean Corpuscular Volume 93 fL (79-100) Mean Corpuscular Hemoglobin 30 pg (25-35) Mean Corpuscular Hemoglobin Concent 33 g/dL (31-37) Red Cell Distribution Width 15.3 % (11.5-14.5) H Platelet Count 525 x10^3/uL (140-400) H Neutrophils (%) (Auto) 65 % (31-73) Lymphocytes (%) (Auto) 25 % (24-48) Monocytes (%) (Auto) 8 % (0-9) Eosinophils (%) (Auto) 2 % (0-3) Basophils (%) (Auto) 1 % (0-3) Neutrophils # (Auto) 6.1 x10^3uL (1.8-7.7) Lymphocytes # (Auto) 2.3 x10^3/uL (1.0-4.8) Monocytes # (Auto) 0.7 x10^3/uL (0.0-1.1) Eosinophils # (Auto) 0.1 x10^3/uL (0.0-0.7) Basophils # (Auto) 0.1 x10^3/uL (0.0-0.2) Prothrombin Time 9.4 SEC (9.4-11.4) Prothrombin Time INR 0.9 (0.9-1.1) PTT 24 SEC (23-33) Sodium Level 142 mmol/L (136-145) Potassium Level 3.3 mmol/L (3.5-5.1) L Chloride Level 105 mmol/L (98-107) Carbon Dioxide Level 28 mmol/L (21-32) Anion Gap 9 (6-14) Blood Urea Nitrogen 13 mg/dL (7-20) Creatinine 0.6 mg/dL (0.6-1.0) Estimated GFR (Cockcroft-Gault) 103.8 Glucose Level 88 mg/dL (70-99) Calcium Level 8.7 mg/dL (8.5-10.1) Total Bilirubin 0.2 mg/dL (0.2-1.0) Direct Bilirubin 0.1 mg/dL (0.0-0.2) Aspartate Amino Transferase (AST) 14 U/L (15-37) L Alanine Aminotransferase (ALT) 19 U/L (14-59) Alkaline Phosphatase 87 U/L (46-116) Creatine Kinase 27 U/L (26-192) Troponin I Quantitative < 0.017 ng/mL (0-0.055) Total Protein 6.2 g/dL (6.4-8.2) L Albumin 2.8 g/dL (3.4-5.0) L Lipase 246 U/L (73-393) Urine Collection Type Unknown Urine Color Yellow Urine Clarity Hazy Urine pH 6.5 Urine Specific [place] 1.010 Urine Protein Neg (NEG-TRACE) Urine Glucose (UA) Neg mg/dL (NEG) Urine Ketones (Stick) Neg mg/dL (NEG) Urine Blood Small (NEG) Urine Nitrite Neg (NEG) Urine Bilirubin Neg (NEG) Urine Urobilinogen Dipstick 0.2 mg/dL (0.2 mg/dL) Urine Leukocyte Esterase Neg (NEG) Urine RBC 0 /HPF (0-2) Urine WBC 0 /HPF (0-4) Urine Squamous Epithelial Cells Occ /LPF Urine Bacteria Few /HPF (0-FEW) Urine Opiates Screen Neg (NEG) Urine Methadone Screen Neg (NEG) Urine Barbiturates Neg (NEG) Urine Phencyclidine Screen Neg (NEG) Urine Amphetamine/Methamphetamine Neg (NEG) Urine Benzodiazepines Screen Neg (NEG) Urine Cocaine Screen Neg (NEG) Urine Cannabinoids Screen Neg (NEG) Urine Ethyl Alcohol Neg (NEG) EKG EKG [] Radiology/Procedures Radiology/Procedures [][address] [address] IMAGING REPORT Signed PATIENT: FRANTZ JOE ACCOUNT: [id number] : 1960 LOCATION: ER AGE: 57 SEX: F EXAM STATUS: DEP ER ORD. PHYSICIAN: LILIBETH BEAR MD REASON: pain PROCEDURE: ACUTE ABDOMEN SERIES Acute abdominal series with PA chest: Reason for examination: Pain. The heart size is normal. Mediastinum is unremarkable. Lung lin are clear. No acute bony abnormalities are seen. There is no organomegaly in the abdomen. Psoas muscles are symmetric. The bowel gas pattern is nonspecific with some small intestinal air present without dilatation but with some small intestine which appears to be mildly dilated. No abnormal calcifications are seen. There are surgical clips in the left and right upper abdomen. No acute bony abnormalities are seen. IMPRESSION: Nonspecific bowel gas pattern with some mild dilatation of the small intestinal tract. No definite bowel obstruction evident. Recommend clinical correlation and follow-up. Electronically signed by: Bettina Car MD (09/24/2018 8:47 PM) [facility] DICTATED AND SIGNED BY: BETTINA CAR MD DATE: 09/24/182046 CC: LILIBETH BEAR MD; SANTOS BRADSHAW ~ Course & Med Decision Making Course & Med Decision Making Pertinent Labs and Imaging studies reviewed. (See chart for details). Pt. resume Flagyl 500 three times aday. Zofran for nausea and vomiting. Push fruit juices. Follow up with primary. Return if any concerns. [] Final Impression Final Impression 1. Diarrhea[] 2. Hx. of C-dif 3. Malnutrition. Alb. 2.8 4. Mild Hypokalemia Dragon Disclaimer Dragon Disclaimer This electronic medical record was generated, in whole or in part, using a voice recognition dictation system. Discharge Summary Visit Information Final Diagnosis Problems Medical Problems: (1) Diarrhea Status: Acute (2) Hypokalemia Status: Acute Brief Hospital Course Allergies Allergies Coded Allergies Type Severity Reaction Last Updated Verified No Known Allergies Allergy Unknown 12/01/17 Yes Vital Signs Vital Signs Date Time Temp Pulse Resp B/P (MAP) Pulse Ox O2 Delivery O2 Flow Rate FiO2 09/24/18 19:45 82 18 141/99 (113) 98 Room Air Lab Results Laboratory Tests Test 09/24/18 17:32 09/24/18 18:10 White Blood Count 9.4 x10^3/uL (4.0-11.0) Red Blood Count 4.19 x10^6/uL (3.50-5.40) Hemoglobin 12.8 g/dL (12.0-15.5) Hematocrit 38.8 % (36.0-47.0) Mean Corpuscular Volume 93 fL (79-100) Mean Corpuscular Hemoglobin 30 pg (25-35) Mean Corpuscular Hemoglobin Concent 33 g/dL (31-37) Red Cell Distribution Width 15.3 % (11.5-14.5) Platelet Count 525 x10^3/uL (140-400) Neutrophils (%) (Auto) 65 % (31-73) Lymphocytes (%) (Auto) 25 % (24-48) Monocytes (%) (Auto) 8 % (0-9) Eosinophils (%) (Auto) 2 % (0-3) Basophils (%) (Auto) 1 % (0-3) Neutrophils # (Auto) 6.1 x10^3uL (1.8-7.7) Lymphocytes # (Auto) 2.3 x10^3/uL (1.0-4.8) Monocytes # (Auto) 0.7 x10^3/uL (0.0-1.1) Eosinophils # (Auto) 0.1 x10^3/uL (0.0-0.7) Basophils # (Auto) 0.1 x10^3/uL (0.0-0.2) Prothrombin Time 9.4 SEC (9.4-11.4) Prothromb Time International Ratio 0.9 (0.9-1.1) Activated Partial Thromboplast Time 24 SEC (23-33) Sodium Level 142 mmol/L (136-145) Potassium Level 3.3 mmol/L (3.5-5.1) Chloride Level 105 mmol/L (98-107) Carbon Dioxide Level 28 mmol/L (21-32) Anion Gap 9 (6-14) Blood Urea Nitrogen 13 mg/dL (7-20) Creatinine 0.6 mg/dL (0.6-1.0) Estimated GFR (Cockcroft-Gault) 103.8 Glucose Level 88 mg/dL (70-99) Calcium Level 8.7 mg/dL (8.5-10.1) Total Bilirubin 0.2 mg/dL (0.2-1.0) Direct Bilirubin 0.1 mg/dL (0.0-0.2) Aspartate Amino Transf (AST/SGOT) 14 U/L (15-37) Alanine Aminotransferase (ALT/SGPT) 19 U/L (14-59) Alkaline Phosphatase 87 U/L (46-116) Creatine Kinase 27 U/L (26-192) Troponin I Quantitative < 0.017 ng/mL (0-0.055) Total Protein 6.2 g/dL (6.4-8.2) Albumin 2.8 g/dL (3.4-5.0) Lipase 246 U/L (73-393) Urine Collection Type Unknown Urine Color Yellow Urine Clarity Hazy Urine pH 6.5 Urine Specific [place] 1.010 Urine Protein Neg (NEG-TRACE) Urine Glucose (UA) Neg mg/dL (NEG) Urine Ketones (Stick) Neg mg/dL (NEG) Urine Blood Small (NEG) Urine Nitrite Neg (NEG) Urine Bilirubin Neg (NEG) Urine Urobilinogen Dipstick 0.2 mg/dL (0.2 mg/dL) Urine Leukocyte Esterase Neg (NEG) Urine RBC 0 /HPF (0-2) Urine WBC 0 /HPF (0-4) Urine Squamous Epithelial Cells Occ /LPF Urine Bacteria Few /HPF (0-FEW) Urine Opiates Screen Neg (NEG) Urine Methadone Screen Neg (NEG) Urine Barbiturates Neg (NEG) Urine Phencyclidine Screen Neg (NEG) Urine Amphetamine/Methamphetamine Neg (NEG) Urine Benzodiazepines Screen Neg (NEG) Urine Cocaine Screen Neg (NEG) Urine Cannabinoids Screen Neg (NEG) Urine Ethyl Alcohol Neg (NEG) Brief Hospital Course Ms. Joe is a 57 old female who presented with generalized abdomen pain and hx of prior C-dif. Discharge Information Condition at Discharge: Stable Disposition/Orders: D/C to Home Dischare Medications Current Medications Lactated Ringer's 1,000 ml @ 1,000 mls/hr Q1H IV Last administered on 09/24/18at 18:17; Admin Dose 1,000 MLS/HR; Start 09/24/18 at 18:00; Stop 09/24/18 at 18:59; Status DC Ondansetron HCl (Zofran) 8 mg 1X ONCE IV Last administered on 09/24/18at 18:17; Admin Dose 8 MG; Start 09/24/18 at 18:00; Stop 09/24/18 at 18:01; Status DC Famotidine (Pepcid Vial) 20 mg 1X ONCE IVP Last administered on 09/24/18at 18:17; Admin Dose 20 MG; Start 09/24/18 at 18:00; Stop 09/24/18 at 18:01; Status DC Ketorolac Tromethamine (Toradol 30mg Vial) 30 mg 1X ONCE IV ; Start 09/24/18 at 18:00; Stop 09/24/18 at 18:01; Status DC Ketorolac Tromethamine (Toradol 15mg Vial) 15 mg STK-MED ONCE .ROUTE ; Start 09/24/18 at 17:49; Stop 09/24/18 at 17:50; Status DC Ketorolac Tromethamine (Toradol 15mg Vial) 30 mg 1X ONCE IV Last administered on 09/24/18at 18:18; Admin Dose 30 MG; Start 09/24/18 at 18:30; Stop 09/24/18 at 18:31; Status DC Potassium Chloride (KCl Oral Soln) 40 meq 1X ONCE PO Last administered on 09/24/18at 19:37; Admin Dose 40 MEQ; Start 09/24/18 at 19:30; Stop 09/24/18 at 19:31; Status DC Metronidazole (Starter Pack - Flagyl) 1 startpack 1X ONCE PO Last administered on 09/24/18at 19:37; Admin Dose 1 STARTPACK; Start 09/24/18 at 19:30; Stop 09/24/18 at 19:31; Status DC Metronidazole (Flagyl) 500 mg 1X ONCE PO Last administered on 09/24/18at 19:37; Admin Dose 500 MG; Start 09/24/18 at 19:30; Stop 09/24/18 at 19:31; Status DC Active Scripts Active Flagyl (Metronidazole) 500 Mg Tablet 500 Mg PO TID 10 Days Zofran (Ondansetron Hcl) 8 Mg Tablet 8 Mg PO QIDPRN PRN Hydroxyzine Hcl 25 Mg Tablet 1 Tab PO QID PRN Medrol (Methylprednisolone) 4 Mg Tab.ds.pk 1 Pkg PO UD Permethrin 60 Gm Cream..g. 1 Sinan TP ONCE May reapply in one week if symptoms have not resolved. Triamcinolone Acetonide 15 Gm Cream..g. 1 Sinan TP TID PRN Prednisone 20 Mg Tablet 2 Tab PO DAILY Start this prescription tomorrow, Tuesday08/08/18 Percocet 5-325 mg Tablet (Oxycodone HCl/Acetaminophen) 1 Each Tablet 0.5-1 Each PO TID PRN PRN Lorazepam 0.5 Mg Tablet 1 Tab PO QID 7 Days Hydrocodone-Apap 5-325 (Hydrocodone Bit/Acetaminophen) 1 Each Tablet 1 Tab PO PRN Q6HRS PRN 7 Days Vancomycin Hcl 125 Mg Capsule 125 Mg PO QID 10 Days Tizanidine Hcl (Tizanidine HCl) 4 Mg Tablet 4 Mg PO PRN Q8HRS PRN Hydroxyzine Hcl 25 Mg Tablet 1 Tab PO TID PRN This medication can also be taken as a sleep aid. Take 2 of them 30 minutes before bed. Reported Naproxen 500 Mg Tablet 500 Mg PO BID Zofran (Ondansetron Hcl) 4 Mg Tablet 4 Mg PO PRN Q6HRS PRN Valtrex (Valacyclovir Hcl) 1,000 Mg Tablet 1,000 Mg PO DAILY PRN Super B-50 Complex (Vitamin B Complex) 1 Each Capsule 1 Each PO BID Aspirin Ec (Aspirin) 81 Mg Tablet.dr 81 Mg PO DAILY Pantoprazole Sodium 40 Mg Tablet.dr 40 Mg PO DAILY LAST DOSE GIVEN: DATE: TODAY TIME: BEFORE BREAKFAST NEXT DOSE DUE: DATE: TOMORR TIME: BEFORE BREAKFAST Zolpidem Tartrate 10 Mg Tablet 5 Mg PO HS LAST DOSE GIVEN: DATE: YESTERDAY TIME: AT BEDTIME NEXT DOSE DUE: DATE: TODAY TIME: AT BEDTIME Multivitamins (Multivitamin) 1 Each Tablet 1 Tab PO DAILY LAST DOSE GIVEN: DATE: TODAY TIME: AM NEXT DOSE DUE: DATE: TOMORROW TIME: AM Lamictal (Lamotrigine) 100 Mg Tablet 100 Mg PO BID LAST DOSE GIVEN: DATE: TODAY TIME: AM NEXT DOSE DUE: DATE: TODAY TIME: PM Dragchristopher Disclaimer This chart was dictated in whole or in part using Voice Recognition software in a busy, high-work load, and often noisy Emergency Department environment. It may contain unintended and wholly unrecognized errors or omissions. LILIBETH BEAR MD Sep 24, 2018 17:37
[2018-09-24] MEDS ORDERED: KETOROLAC 15 MG/ML VIAL. ONE (17:49)
[2018-09-24 17:54] LABS: BASO # 0.1 x10^3/uL (0.0-0.2); BASO % 1 % (0-3); EOS # 0.1 x10^3/uL (0.0-0.7); EOS % 2 % (0-3); HEMATOCRIT 38.8 % (36.0-47.0); HEMOGLOBIN 12.8 g/dL (12.0-15.5); LYMPH # 2.3 x10^3/uL (1.0-4.8); LYMPH % 25 % (24-48); MEAN CORPUSCULAR HEMOGLOBIN 30 pg (25-35); MEAN CORPUSCULAR HGB CONC 33 g/dL (31-37); MEAN CORPUSCULAR VOLUME 93 fL (79-100); MONO # 0.7 x10^3/uL (0.0-1.1); MONO % 8 % (0-9); NEUT # 6.1 x10^3uL (1.8-7.7); NEUT % 65 % (31-73); PLATELET COUNT 525 x10^3/uL (140-400); RED BLOOD COUNT 4.19 x10^6/uL (3.50-5.40); RED CELL DISTRIBUTION WIDTH 15.3 % (11.5-14.5); WHITE BLOOD COUNT 9.4 x10^3/uL (4.0-11.0)
[2018-09-24] MEDS ORDERED: KETOROLAC 30 MG/ML VIAL. IV ONE (18:00)
[2018-09-24] MEDS ORDERED: FAMOTIDINE 20 MG/2 ML VIAL IVP ONE (18:00)
[2018-09-24] MEDS ORDERED: ONDANSETRON PF 4 MG/2 ML VIAL. IV ONE (18:00)
[2018-09-24] MEDS ORDERED: IV RINGERS SOLUTION,LACTATED 1,000 ML IV SCH (18:00)
[2018-09-24 18:01] LABS: ALBUMIN 2.8 g/dL (3.4-5.0); CALCIUM 8.7 mg/dL (8.5-10.1); CREATININE 0.6 mg/dL (0.6-1.0); DIRECT BILIRUBIN 0.1 mg/dL (0.0-0.2); GFR 103.8; POTASSIUM 3.3 mmol/L (3.5-5.1); TOTAL BILIRUBIN 0.2 mg/dL (0.2-1.0); TOTAL PROTEIN 6.2 g/dL (6.4-8.2)
[2018-09-24] MEDS ORDERED: KETOROLAC 15 MG/ML VIAL. IV ONE (18:30)
[2018-09-24 18:47] LABS: AMPHETAMINE/METHAMPHETAMINE NEG (NEG); BARBITURATES NEG (NEG); BENZODIAZEPINES NEG (NEG); CANNABINOIDS NEG (NEG); COCAINE NEG (NEG); METHADONE NEG (NEG); OPIATES NEG (NEG); PHENCYCLIDINE NEG (NEG)
[2018-09-24] MEDS ORDERED: METR500T PO (19:01)
[2018-09-24] MEDS ORDERED: ONDA8TAB9 PO (19:01)
[2018-09-24 19:04] LABS: BACTERIA,URINE FEW /HPF (0-FEW); BILIRUBIN,URINE NEG (NEG); CLARITY,URINE HAZY; COLOR,URINE YELLOW; GLUCOSE,URINE NEG (NEG); NITRITE,URINE NEG (NEG); RBC,URINE 0 /HPF (0-2); SQUAMOUS EPITHELIAL CELL,UR OCC /LPF; UROBILINOGEN,URINE 0.2 mg/dL (0.2 mg/dL); WBC,URINE 0 /HPF (0-4)
[2018-09-24] MEDS ORDERED: [UNRECOGNIZED DRUG - OTHER] PO ONE (19:30)
[2018-09-24] MEDS ORDERED: POTASSIUM CHLORIDE 20 MEQ/15 ML ORAL LIQUID. PO ONE (19:30)
[2018-09-24] MEDS ORDERED: metroNIDAZOLE 500 MG TABLET PO ONE (19:30)
[2018-09-24 19:45] VITALS: BP 141/99
--- NOTE | 2018-09-24 20:51 | RAD ---
Acute abdominal series with PA chest: Reason for examination: Pain. The heart size is normal. Mediastinum is unremarkable. Lung lin are clear. No acute bony abnormalities are seen. There is no organomegaly in the abdomen. Psoas muscles are symmetric. The bowel gas pattern is nonspecific with some small intestinal air present without dilatation but with some small intestine which appears to be mildly dilated. No abnormal calcifications are seen. There are surgical clips in the left and right upper abdomen. No acute bony abnormalities are seen. IMPRESSION: Nonspecific bowel gas pattern with some mild dilatation of the small intestinal tract. No definite bowel obstruction evident. Recommend clinical correlation and follow-up. Electronically signed by: Tsering Alonzo MD (09/24/2018 8:47 PM) [facility]
== END 2018-09-24 19:45 | disposition home or self-care (01) ==
LOC: ER 16:29
DX: R19.7 Diarrhea, unspecified (principal); R10.84 Generalized abdominal pain; E87.6 Hypokalemia; E46 Unspecified protein-calorie malnutrition; F17.210 Nicotine dependence, cigarettes, uncomplicated; Z68.1 Body mass index [BMI] 19.9 or less, adult; Z86.73 Personal history of transient ischemic attack (TIA), and cerebral infarction without residual deficits; Z90.49 Acquired absence of other specified parts of digestive tract; Z98.84 Bariatric surgery status; Z90.710 Acquired absence of both cervix and uterus
CPT/HCPCS: 36415; 74022; 80048; 80076; 80307; 81001; 82550; 83690; 84484; 85025; 85610; 85730; 96361; 96374; 96375; 99285; J1885; J2405; J3490; J7120

== ENCOUNTER 2018-10-02 19:29 | Emergency (ER) | payer MEDICARE, OTHER ==
[~2018-10-02] VITALS: Ht 154.9 cm; Wt 42.9 kg
[~2018-10-02 19:29] MED LIST changes: +METR500T PO; +ONDA8TAB9 PO
[2018-10-02 19:40] VITALS: BP 146/79
--- NOTE | 2018-10-02 20:40 | PHYS DOC ---
Past History Past Medical History: Stroke, TIA, Other Additional Past Medical Histor: insomnia, patella fracture Past Surgical History: Cholecystectomy, Gastric Bypass, Hysterectomy Smoking: Cigarettes Alcohol Use: None Drug Use: None Adult General Chief Complaint Chief Complaint: SHOULDER INJURY HPI HPI Patient is a 57 yo female who presents with left shoulder pain and swelling on going for 1 week. The pain began after being knocked down and falling backwards by a pit bull puppy. She states the pain is a dull ache most prominent over t he anterior and superior portion of the shoulder. She reports the pain has gotten progressively worse over the last 2-3 days. She rates it as a 7/10 in severity. She has decreased ROM with flexion and abduction. She also reports decreased strength in the left upper extremity. She has been using her prescription of Oxycodone to help control the pain. Her last dose was at approximately 1700 today. She states she has an appointment with her Orthopedist tomorrow, but they advised her to come to the ED today to ensure there were no acute processes going on. Review of Systems Review of Systems Constitutional: Denies fever or chills [] Eyes: Denies change in visual acuity, redness, or eye pain [] HENT: Denies nasal congestion or sore throat [] Respiratory: Denies cough or shortness of breath [] Cardiovascular: Denies chest pain or palpitations. GI: Denies abdominal pain, nausea, vomiting, bloody stools or diarrhea [] : Denies dysuria or hematuria [] Musculoskeletal: left shoulder pain. Integument: Denies rash or skin lesions [] Neurologic: Denies headache, focal weakness or sensory changes [] Complete systems were reviewed and found to be within normal limits, except as documented in this note. Allergies Allergies Allergies Coded Allergies Type Severity Reaction Last Updated Verified No Known Allergies Allergy Unknown 12/01/17 Yes Physical Exam Physical Exam Constitutional: Well developed, well nourished, no acute distress, non-toxic appearance. [] Eyes: PERRL, EOMI, conjunctiva normal, no discharge. [] Neck: Normal range of motion, no tenderness, supple, no stridor. [] Cardiovascular:Heart rate regular rhythm Lungs & Thorax: Bilateral breath sounds clear to auscultation [] Skin: Warm, dry, no erythema, no rash. [] Extremities: Swelling over left AC joint. TTP over anterior and superior left shoulder. Decreased ROM and strength of left upper extremity. Positive empty can test. Positive Speed's test. Neurologic: Alert and oriented X 3, normal motor function, normal sensory function, no focal deficits noted. [] Psychologic: Affect normal, judgement normal, mood normal. [] EKG EKG [] Radiology/Procedures Radiology/Procedures PROCEDURE: SHOULDER 2+V LEFT Left shoulder 3 views. HISTORY: Pain 3 views were taken of the left shoulder. There is a nondisplaced fracture of the distal clavicle. There is no fracture of the proximal humerus. There is no glenohumeral dislocation. IMPRESSION: 1. Fracture distal left clavicle. Electronically signed by: Gabo Viveros MD (10/02/2018 9:59 PM) [facility] DICTATED AND SIGNED BY: GABO VIVEROS MD DATE: 10/02/182158 CC: CHAI MAYES MD; SHOLA EVERETT DO ~[] Course & Med Decision Making Course & Med Decision Making Patient is a 57 yo female who presents with 1 week of left shoulder pain and swelling. The patient exhibited significant loss of ROM and strength of left shoulder on exam. 2-view XR of the left UE was ordered and demonstrated findings concerning for a left distal clavicular fracture. Patient was placed in a shoulder immobilizer, instructed to ice the injury 20 minutes on and 20 minutes off with an ice pack, given 1 dose of Morphine for pain, and encouraged to follow up with her Orthopedic appointment tomorrow. Patient stable for discharge with outpatient follow-up with PCP/orthopedics. Discussed findings and plan with patient and family, who acknowledge understanding and agreement. Dragon Disclaimer Dragon Disclaimer This electronic medical record was generated, in whole or in part, using a voice recognition dictation system. Splinting Splinting : Location: Left shoulder Pre-Made Type: Pre-Proc Neuro Vasc Exam: normal Post-Proc Neuro Vasc Exam: normal, unchanged from pre-exam Departure Departure: Impression: Primary Impression: Clavicle fracture Disposition: 01 HOME, SELF-CARE Condition: STABLE Referrals: CHAI MAYES MD (PCP) TIARRA GONZALEZ MD Patient Instructions: Clavicle Fracture (Distal End) with Rehab-SportsMed, Shoulder Immobilizer Problem Qualifiers Primary Impression: Clavicle fracture Encounter type: initial encounter Clavicle location: lateral end Fracture type: closed Fracture alignment: nondisplaced Laterality: left Qualified Codes: S42.035A - Nondisplaced fracture of lateral end of left clavicle, initial encounter for closed fracture SHOLA EVERETT DO Oct 02, 2018 20:40
[2018-10-02] MEDS ORDERED: ONDANSETRON ODT 4 MG TAB.RAPDIS PO ONE (21:15)
[2018-10-02] MEDS ORDERED: MORPHINE SULFATE 4 MG/ML DISP.SYRIN. IM ONE (21:15)
--- NOTE | 2018-10-02 22:01 | RAD ---
Left shoulder 3 views. HISTORY: Pain 3 views were taken of the left shoulder. There is a nondisplaced fracture of the distal clavicle. There is no fracture of the proximal humerus. There is no glenohumeral dislocation. IMPRESSION: 1. Fracture distal left clavicle. Electronically signed by: Gabo Viveros MD (10/02/2018 9:59 PM) [facility]
== END 2018-10-02 21:19 | disposition home or self-care (01) ==
LOC: ER 19:29
DX: S42.035A Nondisplaced fracture of lateral end of left clavicle, initial encounter for closed fracture (principal); F17.210 Nicotine dependence, cigarettes, uncomplicated; Z86.73 Personal history of transient ischemic attack (TIA), and cerebral infarction without residual deficits; W18.39XA Other fall on same level, initial encounter; Y93.89 Activity, other specified; Y92.89 Other specified places as the place of occurrence of the external cause; Y99.8 Other external cause status
CPT/HCPCS: 29105; 73030; 96372; 99284; J2270; Q0162

== ENCOUNTER 2018-10-21 14:46 | Observation (INO) | payer MEDICARE ==
[~2018-10-21] VITALS: Ht 154.9 cm; Wt 47.2 kg
[~2018-10-21 14:46] MED LIST changes: -TIZA4TAB PO; +TIZA4TAB2 PO
[2018-10-21 15:27] LABS: BASO # 0.1 x10^3/uL (0.0-0.2); BASO % 1 % (0-3); EOS # 0.3 x10^3/uL (0.0-0.7); EOS % 3 % (0-3); HEMATOCRIT 35.9 % (36.0-47.0); HEMOGLOBIN 11.5 g/dL (12.0-15.5); LYMPH # 2.1 x10^3/uL (1.0-4.8); LYMPH % 24 % (24-48); MEAN CORPUSCULAR HEMOGLOBIN 30 pg (25-35); MEAN CORPUSCULAR HGB CONC 32 g/dL (31-37); MEAN CORPUSCULAR VOLUME 93 fL (79-100); MONO # 0.8 x10^3/uL (0.0-1.1); MONO % 10 % (0-9); NEUT # 5.4 x10^3uL (1.8-7.7); NEUT % 62 % (31-73); PLATELET COUNT 524 x10^3/uL (140-400); RED BLOOD COUNT 3.88 x10^6/uL (3.50-5.40); RED CELL DISTRIBUTION WIDTH 14.9 % (11.5-14.5); WHITE BLOOD COUNT 8.8 x10^3/uL (4.0-11.0)
--- NOTE | 2018-10-21 15:36 | RAD ---
Exam performed: CT scan of the head without contrast. 1 view chest Date of Service: 10/21/2018. Comparison: CT head without contrast and 1 view chest from 09/07/2018 . Clinical History: Altered mental status. CT HEAD: Technique: Helical acquisitions are obtained from the foramen magnum to the vertex without intravenous administration of contrast. Findings: The ventricles are midline without evidence of dilatation. Normal lomax-white differentiation is maintained. There is no extra axial fluid collection, intraparenchymal hemorrhage or mass lesion. The visualized portions of the orbits, paranasal sinuses and the mastoid air cells appear clear. The calvarium is intact. Impression: 1. No acute intracranial process detected. PQRS Compliance Statement: One or more of the following individualized dose reduction techniques were utilized for this examination: 1. Automated exposure control 2. Adjustment of the mA and/or kV according to patient size 3. Use of iterative reconstruction technique End impression Single AP upright portable view chest findings: Cardiomediastinal silhouette is within limits of normal. No acute infiltrates, effusion or pneumothorax is detected. The bony structures are normal. Impression: No acute cardiopulmonary process is detected. Electronically signed by: Earline Buckley MD (10/21/2018 3:33 PM) [facility] [place]
--- NOTE | 2018-10-21 15:42 | PHYS DOC ---
Past History Past Medical History: Stroke, TIA, Other Additional Past Medical Histor: insomnia, patella fracture Past Surgical History: Cholecystectomy, Gastric Bypass, Hysterectomy Smoking: Cigarettes Alcohol Use: None Drug Use: None Adult General Chief Complaint Chief Complaint: SLURRED SPEECH [facility] HPI 57-year-old female presents with slurred speech and decreased balance that started at around 6 PM last night. The patient got up out of the chair to walk across a room and did not have good balance. She also then seemed to have some slurred speech. She is able to speak in full sentences. She has normal understanding of other speech, but has a slurring her speech. This persisted today and they decided to bring her to the emergency room. Patient is well-known to the ED. The symptoms are new. No recent medication changes. The patient also complains of multiple insect bites over her body being intensely pruritic. She has tried several things to make this better and they were slow to heal and she seems to still be getting new bites. Patient denies fever or chills. Review of Systems Review of Systems Constitutional: Denies fever or chills [] Eyes: Denies change in visual acuity, redness, or eye pain [] HENT: Denies nasal congestion or sore throat [] Respiratory: Denies cough or shortness of breath [] Cardiovascular: No additional information not addressed in HPI [] GI: Denies abdominal pain, nausea, vomiting, bloody stools or diarrhea [] : Denies dysuria or hematuria [] Musculoskeletal: Denies back pain or joint pain [] Integument: Multiple insect bites[] Neurologic: Slurred speech. Decreased balance. Denies headache, focal weakness or sensory changes [] Endocrine: Denies polyuria or polydipsia [] All other systems were reviewed and found to be within normal limits, except as documented in this note. Allergies Allergies Allergies Coded Allergies Type Severity Reaction Last Updated Verified No Known Allergies Allergy Unknown 12/01/17 Yes Physical Exam Physical Exam Constitutional: Well developed, well nourished, no acute distress, non-toxic appearance. [] HENT: Normocephalic, atraumatic, bilateral external ears normal, oropharynx moist, no oral exudates, nose normal. [] Eyes: PERRLA, EOMI, conjunctiva normal, no discharge. [] Neck: Normal range of motion, no tenderness, supple, no stridor. [] Cardiovascular:Heart rate regular rhythm, no murmur [] Lungs & Thorax: Bilateral breath sounds clear to auscultation [] Abdomen: Bowel sounds normal, soft, no tenderness, no masses, no pulsatile masses. [] Skin: Multiple insect bites on the patient's bilateral upper and lower extremities.[] Back: No tenderness, no CVA tenderness. [] Extremities: No tenderness, no cyanosis, no clubbing, , no edema. [] Neurologic: Slurred speech. Her speech is intelligible. She has no delay in forming words. Her understanding seems to be intact. Alert and oriented X 3, normal motor function, normal sensory function, no focal deficits noted. [] Psychologic: Affect normal, judgement normal, mood normal. [] Current Patient Data Vital Signs Vital Signs Date Time Temp Pulse Resp B/P (MAP) Pulse Ox O2 Delivery O2 Flow Rate FiO2 10/21/18 14:49 98.4 89 12 97 Room Air Lab Results Laboratory Tests Test 10/21/18 15:09 White Blood Count 8.8 x10^3/uL (4.0-11.0) Red Blood Count 3.88 x10^6/uL (3.50-5.40) Hemoglobin 11.5 g/dL (12.0-15.5) L Hematocrit 35.9 % (36.0-47.0) L Mean Corpuscular Volume 93 fL (79-100) Mean Corpuscular Hemoglobin 30 pg (25-35) Mean Corpuscular Hemoglobin Concent 32 g/dL (31-37) Red Cell Distribution Width 14.9 % (11.5-14.5) H Platelet Count 524 x10^3/uL (140-400) H Neutrophils (%) (Auto) 62 % (31-73) Lymphocytes (%) (Auto) 24 % (24-48) Monocytes (%) (Auto) 10 % (0-9) H Eosinophils (%) (Auto) 3 % (0-3) Basophils (%) (Auto) 1 % (0-3) Neutrophils # (Auto) 5.4 x10^3uL (1.8-7.7) Lymphocytes # (Auto) 2.1 x10^3/uL (1.0-4.8) Monocytes # (Auto) 0.8 x10^3/uL (0.0-1.1) Eosinophils # (Auto) 0.3 x10^3/uL (0.0-0.7) Basophils # (Auto) 0.1 x10^3/uL (0.0-0.2) EKG EKG Sinus rhythm, rate 87, normal axis, no ST elevations or depressions.[] Radiology/Procedures Radiology/Procedures [] Impressions: Exam performed: CT scan of the head without contrast. 1 view chest Date of Service: 10/21/2018. Comparison: CT head without contrast and 1 view chest from 09/07/2018 . Clinical History: Altered mental status. CT HEAD: Technique: Helical acquisitions are obtained from the foramen magnum to the vertex without intravenous administration of contrast. Findings: The ventricles are midline without evidence of dilatation. Normal lomax-white differentiation is maintained. There is no extra axial fluid collection, intraparenchymal hemorrhage or mass lesion. The visualized portions of the orbits, paranasal sinuses and the mastoid air cells appear clear. The calvarium is intact. Impression: 1. No acute intracranial process detected. PQRS Compliance Statement: One or more of the following individualized dose reduction techniques were utilized for this examination: 1. Automated exposure control 2. Adjustment of the mA and/or kV according to patient size 3. Use of iterative reconstruction technique End impression Single AP upright portable view chest findings: Cardiomediastinal silhouette is within limits of normal. No acute infiltrates, effusion or pneumothorax is detected. The bony structures are normal. Impression: No acute cardiopulmonary process is detected. Electronically signed by: Earline Buckley MD (10/21/2018 3:33 PM) [facility] DICTATED AND SIGNED BY: EARLINE BUCKLEY MD DATE: 10/21/18 1533 CC: PAN FERRO DO; CHAI MAYES MD ~ Course & Med Decision Making Course & Med Decision Making Pertinent Labs and Imaging studies reviewed. (See chart for details) The patient's head CT is negative for acute findings. CBC is unremarkable. Chemistry is pending. Urinalysis and urine drug screen are pending. The patient continues to be sleepy but easily arousable. I discussed the patient with Dr. Mendez and he was comfortable with admitting the patient to this facility. I discussed the patient with Dr. Borges and he has agreed to accept the patient for admission. [] Dragon Disclaimer Dragon Disclaimer This electronic medical record was generated, in whole or in part, using a voice recognition dictation system. Departure Departure: Impression: Primary Impression: Slurred speech Additional Impression: Disequilibrium Disposition: 09 ADMITTED INPATIENT Admitting Physician: Bridger Borges Condition: STABLE Referrals: CHAI MAYES MD (PCP) Problem Qualifiers PAN FERRO DO Oct 21, 2018 15:42
[2018-10-21] MEDS ORDERED: IV NORMAL SALINE 1,000ML 1,000 ML IV ONE (16:30)
[2018-10-21 17:22] LABS: ALBUMIN 2.7 g/dL (3.4-5.0); ALBUMIN/GLOBULIN RATIO 0.9 (1.0-1.7); CALCIUM 8.2 mg/dL (8.5-10.1); CREATININE 0.5 mg/dL (0.6-1.0); GFR 128.1; POTASSIUM 3.2 mmol/L (3.5-5.1); TOTAL BILIRUBIN 0.2 mg/dL (0.2-1.0); TOTAL PROTEIN 5.7 g/dL (6.4-8.2)
[2018-10-21 18:25] VITALS: BP 108/49
[2018-10-21] MEDS ORDERED: OXYC5CAP PO (18:45)
[2018-10-21] MEDS ORDERED: ZOLP10TA PO (18:45)
[2018-10-21] MEDS ORDERED: LORA-254 PO (18:45)
[2018-10-21] MEDS ORDERED: ZOLPIDEM 5 MG TABLET. PO PRN (19:15)
[2018-10-21] MEDS ORDERED: LORazepam 0.5 MG TABLET PO PRN (19:15)
[2018-10-21] MEDS ORDERED: diphenhydrAMINE 50 MG/ML VIAL IVP PRN (19:15)
[2018-10-21] MEDS ORDERED: HYDROCORTISONE 1% TOPICAL OINTMENT 30GM TUBE. TP PRN (19:15)
[2018-10-21] MEDS ORDERED: oxyCODONE IR 5 MG TABLET PO PRN (19:15)
[2018-10-21] MEDS ORDERED: KETOROLAC 30 MG/ML VIAL. IV PRN (19:15)
[2018-10-21] MEDS ORDERED: NICOTINE 14MG PATCH. TD SCH (21:00)
[2018-10-21] MEDS: lamoTRIgine 100 MG TABLET. PO SCH (22:13)
[2018-10-22 06:05] VITALS: BP 97/54
[2018-10-22 06:56] LABS: HEMATOCRIT 37.7 % (36.0-47.0); HEMOGLOBIN 12.1 g/dL (12.0-15.5); RED BLOOD COUNT 4.03 x10^6/uL (3.50-5.40); RED CELL DISTRIBUTION WIDTH 14.9 % (11.5-14.5); WHITE BLOOD COUNT 8.6 x10^3/uL (4.0-11.0)
[2018-10-22 07:14] LABS: CALCIUM 8.4 mg/dL (8.5-10.1); CREATININE 0.6 mg/dL (0.6-1.0); GFR 103.8; POTASSIUM 3.4 mmol/L (3.5-5.1)
[2018-10-22] MEDS ORDERED: PANTOPRAZOLE 40 MG TABLET. PO SCH (07:30)
[2018-10-22] MEDS ORDERED: ASPIRIN ENTERIC COATED 81 MG TABLET.DR. PO SCH (08:00)
[2018-10-22] MEDS: lamoTRIgine 100 MG TABLET. PO SCH (09:21)
[2018-10-22 11:12] LABS: BARBITURATES POS (NEG); BENZODIAZEPINES NEG (NEG); CANNABINOIDS NEG (NEG); COCAINE NEG (NEG); METHADONE NEG (NEG); OPIATES NEG (NEG); PHENCYCLIDINE NEG (NEG)
[2018-10-22 11:22] LABS: BACTERIA,URINE FEW /HPF (0-FEW); BILIRUBIN,URINE NEG (NEG); CLARITY,URINE HAZY; COLOR,URINE YELLOW; GLUCOSE,URINE NEG (NEG); NITRITE,URINE NEG (NEG); SQUAMOUS EPITHELIAL CELL,UR MOD /LPF; UROBILINOGEN,URINE 0.2 mg/dL (0.2 mg/dL); YEAST,URINE PRESENT /HPF
[2018-10-22 11:32] LABS: AMPHETAMINE/METHAMPHETAMINE NEG (NEG)
--- NOTE | 2018-10-22 15:00 | HP ---
ADMIT DATE: 10/21/2018 HISTORY OF PRESENT ILLNESS: The patient is a 57-year-old female patient who came to the Emergency Room complaining of slurred speech, decreased balance and started around 6:00 p.m. last night; the patient got up out of the chair to walk across the room and had good balance. She also seemed to have some slurred speech. She is able to speak in full sentences. She has normal understanding, but has slurring of her speech. This persisted and therefore, they decided to bring her to the Emergency Room. The patient is well known to the Emergency Department, the symptoms are new. No recent medication change. However, the patient has multiple insect bites over her body that are intensely pruritic and she has tried several things to make this better; however, they were slow to heal. She denied any fall or trauma. She was extensively investigated in the Emergency Room and was admitted to consult Dr. Mendez. PAST MEDICAL HISTORY: Significant for stroke in 2018 resulted in aphasia, which basically treated with TPA, history of hypothyroidism, hypertension, anxiety, seizures in 2011 for which she has received Lamictal, TIA, headaches, irritable bowel syndrome, chronic low back pain, chronic tobacco use, and gastroesophageal reflux disease. PAST SURGICAL HISTORY: Significant for gastric bypass surgery. She lost approximately 100 pounds, hysterectomy, oophorectomy, salpingectomy, right total knee replacement. SOCIAL HISTORY: The patient is , has 2 children. She denied smoking. She drinks alcohol occasionally. She denied any illegal drug use. ALLERGIES: She has no known drug allergies. FAMILY HISTORY: Noncontributory. MEDICATIONS: She is currently on following medications: She is on valacyclovir 1000 mg p.o. daily as needed for herpes simplex, aspirin 81 mg once a day, oxycodone 5 mg every 6 hours, lamotrigine 100 mg twice a day, lorazepam 0.5 mg twice a day as needed, Ambien 10 mg at bedtime, Protonix 40 mg once a day, vitamin B complex 1 tablet twice a day, multivitamin 1 tablet once a day. REVIEW OF SYSTEMS: As per history of present illness. PHYSICAL EXAMINATION: GENERAL: On arrival to the Emergency Room, the patient looked well and was clearly in no apparent respiratory distress, pale, somewhat cachectic, but no jaundice, cyanosis, or thyromegaly. No jugular venous distension. No lower limb edema. VITAL SIGNS: Her heart rate was 89, blood pressure was 111/76, temperature was 98.4, respiratory rate was 12, and oxygen saturation was 97%. HEAD, EYES, EARS, NOSE AND THROAT: Showed normocephalic, atraumatic. NECK: Supple. HEART: Showed normal first and second heart sounds with no gallop, rub or murmur. CHEST: Clear to auscultation. No crepitation or rhonchi. ABDOMEN: Distended, soft, nontender. No guarding or rigidity. No organomegaly. All hernial orifice intact. Bowel sounds normal. NEUROLOGIC: She was awake, alert; however, when she arrived to the Emergency Room, she has slurring of her speech; however, she was alert, oriented x 3 with normal motor and sensory function. Her affect, judgment, and mood were normal. She was extensively investigated. LABORATORY DATA: Showed a white cell count of 8800, hemoglobin 11.5, hematocrit 36, MCV 93, and platelet count 524,000. Her chemistry showed a serum sodium 142, potassium 3.2, chloride 106, bicarbonate 29, anion gap of 7, BUN 9, creatinine 0.5, estimated GFR was 128 mL per minute. Her glucose was 90, calcium was 8.2. Total bilirubin, AST, ALT, alkaline phosphatase were normal. Total protein was 5.7, albumin was 2.7. She did have a CT scan of the head, which basically showed that the ventricles are midline without evidence of dilatation. Normal lomax-white differentiation is maintained. There is no extra-axial fluid collection, intraparenchymal hemorrhage or mass lesion. The visualized portion of the orbits, paranasal sinuses and mastoid air cells appear clear. The calvarium is intact. Her chest x-ray showed that the cardiomediastinal silhouette is within normal limits. No acute infiltrate, effusion, or pneumothorax is detected. The bony structures are normal. ASSESSMENT AND PLAN: The patient was admitted with altered mental status, slurring of speech. We have consulted Dr. Mendez and continued all her medications that include the aspirin and lamotrigine and for her insect bites, she was started on hydrocortisone and diphenhydramine. JASEN TALAVERA MD DR: GUERITA/arsalan JOB#: [id number] / [id number]
--- NOTE | 2018-10-22 20:54 | DS ---
DATE OF DISCHARGE: 10/22/2018 HOSPITAL COURSE: The patient is a 57-year-old female patient who came yesterday to the Emergency Room with a complaint of slurring speech and gait imbalance. She was extensively investigated by the Emergency Room, had a CT scan, which was unremarkable and it showed the ventricles are midline without any evidence of dilatation. Normal lomax-white differentiation is maintained. There is no extraaxial fluid collection, intraparenchymal hemorrhage or mass lesion. The visualized portion of the orbits, paranasal sinuses and mastoid air cells appear clear. The calvarium is intact. By the time when I saw her in the morning, she was definitely more awake, alert, had no slurring of speech, has been able to walk without assistive devices, though she continued to veer towards the left side. She and her were offered to be admitted to [facility], but they refused to go there and she was seen by Dr. Mendez who basically recommended she can be discharged to follow with him in his office in 2 weeks' time. I made it clear to her that if her symptoms worsened that she can come any time, although our imaging capabilities are limited and I recommended it was better for her to go to perhaps [place] or [facility], although our Emergency Room is open, 24 hours a day, 7 days a week. PHYSICAL EXAMINATION: GENERAL: When I saw her this morning, she looked well, slightly pale. No jaundice, cyanosis or thyromegaly. No jugular venous distension. No lower limb edema. VITAL SIGNS: Her heart rate was 72, blood pressure was 97/54, temperature was 97.9, respiratory rate 16 and oxygen saturation was 97%. HEAD, EYES, EARS, NOSE AND THROAT: Showed normocephalic, atraumatic. NECK: Supple. HEART: Showed normal first and second heart sounds. No gallop, rub or murmur. CHEST: Clear to auscultation. No crepitation or rhonchi. ABDOMEN: Distended. Abdomen was scaphoid, soft, and nontender. NEUROLOGIC: She was awake, alert, responding appropriately. All cranial nerves intact. EXTREMITIES: She moves extremities without difficulty. She ambulates without assistance or assistive devices. She showed no evidence of any cerebellar ataxia or dysdiadochokinesis [id number] test was normal. A decision was made to discharge her home to continue on all her current medication. I also gave her a prescription for triamcinolone cream for her. Apparently, they have bedbugs. They already have an appointment with the medical information specialist to come to take care of their bedbugs. DISCHARGE MEDICATIONS: She was discharged home to continue on aspirin 81 mg once a day, lamotrigine (Lamictal) 100 mg twice a day, lorazepam 0.5 mg twice a day, multivitamin 1 tablet once a day, oxycodone 5 mg every 6 hours, Protonix 40 mg daily, valacyclovir (Valtrex) 1000 mg daily as needed, vitamin B complex 1 tablet twice a day and Ambien 10 mg at bedtime. FINAL DISCHARGE DIAGNOSES: Altered mental status, improved, slurred speech has completely resolved. Other medical problems include history of stroke before and transient ischemic attack. She also has hypothyroidism, hypertension, seizure disorder, irritable bowel syndrome, gastroesophageal reflux disease, chronic tobacco use, chronic low back. JASEN TALAVERA MD DR: GUERITA/arsalan JOB#: [id number] / [id number]
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
--- NOTE | 2018-10-22 21:27 | PN ---
DATE: 10/22/2018 SUBJECTIVE: The patient denies any new medical or neurological complaints; however, she continues to complain of pain of the left shoulder and she related that to recent clavicle fracture. She also complains of daily headache and sometimes intermittent migraine headaches. The patient has tried Aimovig as prophylactic agent for migraine and she said the frequency of migraine has somewhat improved. She tried Botox in the past, but did not work well. The patient states she had a seizure, the last one was seizure disorder, etiology is uncertain. The last seizure was about 10 years ago. She did undergo 5-day video monitoring EEG, which was normal. She stated her speech has been normal and she did not have any balance impairment. OBJECTIVE: GENERAL: Well-developed, well-nourished female, not in acute distress. VITAL SIGNS: Blood pressure 97/54, respiratory rate 16, pulse is 72, temperature 97.9, oxygen saturation 97% on room air. HEENT: Normocephalic, atraumatic, otherwise unremarkable. NECK: Supple. Negative for carotid bruit, lymphadenopathy or thyromegaly. LUNGS: Clear to A and P. CARDIOVASCULAR: Regular rhythm, normal S1, S2. ABDOMEN: Soft. Bowel sounds positive. EXTREMITIES: Negative for cyanosis, clubbing or edema. NEUROLOGICAL EXAM: Normal mental status and intact cranial nerves. There is no focal motor or sensory deficit. Deep tendon reflexes were symmetric and active without pathology responses. Gait and coordination are normal. LABORATORY DATA: CBC revealed white blood cells of 8.6 thousand, hemoglobin 12.1, hematocrit 37.7, platelet count 510,000. Chemistry revealed sodium 144, potassium 3.4, chloride 106, CO2 of 31, BUN 9, creatinine 0.6, glucose 78 and calcium 8.4. IMPRESSION: 1. Brief slurred speech with impaired balance -- resolved, questionable transient ischemic attack. 2. Multiple medical problems include history of stroke with normal current head CT scan, history of seizure disorder, tension and migraine headaches, gastroesophageal reflux disease and chronic lower back pain. RECOMMENDATIONS: 1. Continue with current management initiated by Dr. Borges. 2. Follow up after 2 weeks and arrange for electroencephalogram. M Simon PHILIPPE MD DR: SUSANA/[facility] JOB#: [id number] / [id number]
--- NOTE | 2018-10-23 07:18 | EKG ---
[address] [address] Test Date: 2018-10-21 Test Time: 15:01:49 Pat Name: FRANTZ JOE Department: Room: [facility] 1 Gender: F [place]: : [id number] Requested By: PAN FERRO Order Number: [id number] Reading MD: Measurements Intervals [place] Rate: P: [place]: QRS: QRSD: T: QT: QTc: Interpretive Statements
== END 2018-10-22 12:45 | disposition home or self-care (01) ==
LOC: ER 14:46 → ICU 17:49 → INTOOBSV 17:49
PROVIDERS: ADMIT Internal Medicine; ATTEND Internal Medicine
DX: R41.82 Altered mental status, unspecified (principal); Z86.73 Personal history of transient ischemic attack (TIA), and cerebral infarction without residual deficits; Z90.49 Acquired absence of other specified parts of digestive tract; Z90.710 Acquired absence of both cervix and uterus; F17.200 Nicotine dependence, unspecified, uncomplicated; G47.00 Insomnia, unspecified; R47.01 Aphasia; E03.9 Hypothyroidism, unspecified; I10 Essential (primary) hypertension; F41.9 Anxiety disorder, unspecified; K58.9 Irritable bowel syndrome, unspecified; M54.5 Low back pain; G89.29 Other chronic pain; K21.9 Gastro-esophageal reflux disease without esophagitis; Z98.84 Bariatric surgery status; Z98.890 Other specified postprocedural states; E87.6 Hypokalemia; L29.9 Pruritus, unspecified; R47.81 Slurred speech
CPT/HCPCS: 36415; 70450; 71045; 80048; 80053; 80307; 81001; 85025; 85027; 87086; 87641; 93005; 96361; 96374; 99284; G0378; J1200; 96360; G0379; 99285-25; J7030

== ENCOUNTER 2018-12-12 01:15 | Emergency (ER) | payer MEDICARE ==
[~2018-12-12] VITALS: Ht 154.9 cm; Wt 46.0 kg
[~2018-12-12 01:15] MED LIST changes: +LORA-254 PO; +ZOLP10TA PO
--- NOTE | 2018-12-12 01:17 | ED.ADGEN ---
Past History Past Medical History: Seizure, Stroke, TIA, Other Additional Past Medical Histor: insomnia, patella fracture Past Surgical History: Cholecystectomy, Gastric Bypass, Hysterectomy Smoking: Cigarettes Alcohol Use: None Drug Use: None Adult General Chief Complaint Chief Complaint ".. I started back on my seizure meds tonight.. and I kenneth had a trip.. and fell hitting my head.. HPI HPI Patient is a 58 year old female who presents with above hx and complaints fall and head laceration. Patient did restart her seizure meds tonight because a seizure earlier this week. Patient states she was off on her gait and tripped falling backwards hitting her head resulting in a 3 cm laceration and contusion to posterior scalp. Patient denies any loss of consciousness. Does have some mild upper neck tenderness. Patient does not remember last tetanus. Patient states she's been compliant of her other meds. Patient does have a history of migraine headaches, seizure disorder and episodes of hypokalemia. Patient normally follows with Dr. Wakefield. Review of Systems Review of Systems Constitutional: Denies fever or chills [] Eyes: Denies change in visual acuity, redness, or eye pain [] HENT: Denies nasal congestion or sore throat []complaints of head injury and laceration to posterior scalp Respiratory: Denies cough or shortness of breath [] Cardiovascular: No additional information not addressed in HPI [] GI: Denies abdominal pain, nausea, vomiting, bloody stools or diarrhea [] : Denies dysuria or hematuria [] Musculoskeletal: Denies back pain or joint pain [] Integument: Denies rash or skin lesions [] Neurologic: Denies headache, focal weakness or sensory changes [] Endocrine: Denies polyuria or polydipsia [] All other systems were reviewed and found to be within normal limits, except as documented in this note. Family History Family History Noncontributory Current Medications Current Medications Current Medications Medications (Trade) Dose Ordered Sig/Anai Start Time Stop Time Status Last Admin Dose Admin Acetaminophen (Tylenol) 1,000 mg 1X ONCE 12/12/18 03:00 12/12/18 03:01 DC 12/12/18 02:39 1,000 MG Diphenhydramine HCl (Benadryl) 25 mg 1X ONCE 12/12/18 04:30 12/12/18 04:31 DC 12/12/18 04:58 25 MG Diphtheria/ Tetanus/Acell Pertussis (Boostrix) 0.5 ml ONCE ONCE 12/12/18 02:30 12/12/18 02:31 DC 12/12/18 02:52 0.5 ML Fentanyl Citrate (Fentanyl 2ml Vial) 50 mcg 1X ONCE 12/12/18 03:15 12/12/18 03:31 DC 12/12/18 04:58 50 MCG Neomycin/ Polymyxin/ Bacitracin (Triple Antibiotic Ointment) 1 pkt 1X ONCE 12/12/18 02:30 12/12/18 02:31 DC 12/12/18 02:40 1 PKT Prochlorperazine Edisylate (Compazine) 10 mg 1X ONCE 12/12/18 04:30 12/12/18 04:31 DC 12/12/18 04:58 10 MG See nursing for home meds Allergies Allergies Allergies Coded Allergies Type Severity Reaction Last Updated Verified No Known Allergies Allergy Unknown 12/01/17 Yes Physical Exam Physical Exam Constitutional: Moderate acute distress, non-toxic appearance. [] HENT: Normocephalic, contusion, hematoma proximal 4 x 4 centimeters with a central laceration of 3 cm on posterior scalp, bilateral external ears normal, oropharynx moist, no oral exudates, nose normal. [] Eyes: PERRLA, EOMI, conjunctiva normal, no discharge. [] Neck: Normal range of motion, mild upper neck tenderness, supple, no stridor. [] Cardiovascular:Heart rate regular rhythm, no murmur [] Lungs & Thorax: Bilateral breath sounds equal at the apex auscultation []. Has scattered wheezes . Abdomen: Bowel sounds normal, soft, no tenderness, no masses, no pulsatile masses. Old surgery scars Skin: Warm, dry, no erythema, no rash. [] Back: No tenderness, no CVA tenderness. [] Extremities: No tenderness, no cyanosis, no clubbing, ROM intact, no edema. Arthritic changes Neurologic: Alert and oriented X 3, normal motor function, normal sensory function, no focal deficits noted. []DTRs +2 at patella and brachial. 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 No drift. Finger to nose good. Patient is ambulatory without problem. Psychologic: Affect anxious judgement normal, mood normal. [] Current Patient Data Vital Signs Vital Signs Date Time Temp Pulse Resp B/P (MAP) Pulse Ox O2 Delivery O2 Flow Rate FiO2 12/12/18 05:00 18 100 12/12/18 04:58 Room Air 12/12/18 04:47 81 139/70 (93) 12/12/18 01:22 97.5 Lab Results Laboratory Tests Test 12/12/18 01:35 12/12/18 02:15 Urine Collection Type Unknown Urine Color Yellow Urine Clarity Clear Urine pH 6.0 Urine Specific Foley <=1.005 Urine Protein Neg (NEG-TRACE) Urine Glucose (UA) Neg mg/dL (NEG) Urine Ketones (Stick) Neg mg/dL (NEG) Urine Blood Mod (NEG) Urine Nitrite Neg (NEG) Urine Bilirubin Neg (NEG) Urine Urobilinogen Dipstick 0.2 mg/dL (0.2 mg/dL) Urine Leukocyte Esterase Neg (NEG) Urine RBC 1-2 /HPF (0-2) Urine WBC Occ /HPF (0-4) Urine Squamous Epithelial Cells Few /LPF Urine Bacteria 0 /HPF (0-FEW) Urine Opiates Screen Neg (NEG) Urine Methadone Screen Neg (NEG) Urine Barbiturates Pos (NEG) Urine Phencyclidine Screen Neg (NEG) Urine Amphetamine/Methamphetamine Neg (NEG) Urine Benzodiazepines Screen Neg (NEG) Urine Cocaine Screen Neg (NEG) Urine Cannabinoids Screen Neg (NEG) Urine Ethyl Alcohol Neg (NEG) White Blood Count 9.8 x10^3/uL (4.0-11.0) Red Blood Count 4.39 x10^6/uL (3.50-5.40) Hemoglobin 13.1 g/dL (12.0-15.5) Hematocrit 40.2 % (36.0-47.0) Mean Corpuscular Volume 92 fL (79-100) Mean Corpuscular Hemoglobin 30 pg (25-35) Mean Corpuscular Hemoglobin Concent 33 g/dL (31-37) Red Cell Distribution Width 17.4 % (11.5-14.5) H Platelet Count 452 x10^3/uL (140-400) H Neutrophils (%) (Auto) 67 % (31-73) Lymphocytes (%) (Auto) 27 % (24-48) Monocytes (%) (Auto) 5 % (0-9) Eosinophils (%) (Auto) 1 % (0-3) Basophils (%) (Auto) 1 % (0-3) Neutrophils # (Auto) 6.5 x10^3uL (1.8-7.7) Lymphocytes # (Auto) 2.6 x10^3/uL (1.0-4.8) Monocytes # (Auto) 0.5 x10^3/uL (0.0-1.1) Eosinophils # (Auto) 0.1 x10^3/uL (0.0-0.7) Basophils # (Auto) 0.1 x10^3/uL (0.0-0.2) Sodium Level 141 mmol/L (136-145) Potassium Level 3.5 mmol/L (3.5-5.1) Chloride Level 105 mmol/L (98-107) Carbon Dioxide Level 24 mmol/L (21-32) Anion Gap 12 (6-14) Blood Urea Nitrogen 14 mg/dL (7-20) Creatinine 0.7 mg/dL (0.6-1.0) Estimated GFR (Cockcroft-Gault) 86.6 Glucose Level 88 mg/dL (70-99) Calcium Level 8.7 mg/dL (8.5-10.1) Magnesium Level 2.2 mg/dL (1.8-2.4) Troponin I Quantitative < 0.017 ng/mL (0-0.055) Ethyl Alcohol Level < 10 mg/dL (0-10) EKG EKG My interpretation of EKG shows a sinus rhythm at 69 bpm. There is nonspecific contour changes anterior septal. But no findings acute STEMI of contralateral changes. Overall morphology of EKG is similar to prior EKGs on file.[] Radiology/Procedures Radiology/Procedures [][place] [address] IMAGING REPORT Signed PATIENT: FRANTZ JOE ACCOUNT: [id number] : 1960 LOCATION: ER AGE: 58 SEX: F EXAM STATUS: REG ER ORD. PHYSICIAN: LILIBETH BEAR MD REASON: fall , head laceration, LARGE KNOT POSTERIOR HEAD. PROCEDURE: CT HEAD AND CERVICAL SPINE WO CT head without contrast. CT cervical spine without contrast PQRS statement: CT scans at this facility use dose reduction including either automated exposure control, iterative reconstructions, and /or weight based radiation dosing via mA and kV modification when appropriate to reduce radiation dose to as low as reasonably achievable. HISTORY: Fall, head laceration, lump at the posterior occipital scalp. COMPARISON: CT head September 07, 2018. TECHNIQUE: Noncontrast CT imaging of the head and cervical spine multiplanar reconstructions. CT head findings: No intracranial hemorrhage, mass, hydrocephalus, extra-axial fluid collections or infarction. Orbits, mastoids, paranasal sinuses and bones are unremarkable. Occipital scalp laceration. No scalp hematoma. IMPRESSION: No acute intracranial CT abnormality. CT cervical spine findings: Craniocervical junction intact. Cervical vertebral body height and alignment intact. No fracture of the cervical spine. Lung apices and paraspinal tissues are unremarkable. IMPRESSION: No acute osseous injury of the cervical spine. Electronically signed by: Anish Byers MD (12/12/2018 2:59 AM) [facility] [place] DICTATED AND SIGNED BY: ANISH BYERS MD DATE: 12/12/18 0259 CC: LILIBETH BEAR MD; CHAI MAYES MD ~ Course & Med Decision Making Course & Med Decision Making Pertinent Labs and Imaging studies reviewed. (See chart for details) Wound cleaned and Polysporin applied. Wound did not require komal or sutures. Patient be monitored for mental status changes. Take Tylenol only for pain tonight. I Polysporin to laceration area 4 times a day. Follow-up primary care. Return if any concerns. [] Final Impression Final Impression 1. Head Injury 2. Laceration[] 3 CM Dragon Disclaimer Dragon Disclaimer This electronic medical record was generated, in whole or in part, using a voice recognition dictation system. Dragon Disclaimer This chart was dictated in whole or in part using Voice Recognition software in a busy, high-work load, and often noisy Emergency Department environment. It may contain unintended and wholly unrecognized errors or omissions. Dragon Disclaimer This chart was dictated in whole or in part using Voice Recognition software in a busy, high-work load, and often noisy Emergency Department environment. It may contain unintended and wholly unrecognized errors or omissions. LILIBETH BEAR MD Dec 12, 2018 01:17
[2018-12-12] MEDS ORDERED: DIPHTH,PERTUSS(ACELL),TET TOX 0.5 ML DISP.SYRIN. VAX IM ONE (02:30)
[2018-12-12] MEDS ORDERED: NEOMY/BACITR/POLYMYXIN OINT PACKET. TP ONE (02:30)
--- NOTE | 2018-12-12 02:39 | EKG ---
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
[2018-12-12 02:40] LABS: BASO # 0.1 x10^3/uL (0.0-0.2); BASO % 1 % (0-3); EOS # 0.1 x10^3/uL (0.0-0.7); EOS % 1 % (0-3); HEMATOCRIT 40.2 % (36.0-47.0); HEMOGLOBIN 13.1 g/dL (12.0-15.5); LYMPH # 2.6 x10^3/uL (1.0-4.8); LYMPH % 27 % (24-48); MEAN CORPUSCULAR HEMOGLOBIN 30 pg (25-35); MEAN CORPUSCULAR HGB CONC 33 g/dL (31-37); MEAN CORPUSCULAR VOLUME 92 fL (79-100); MONO # 0.5 x10^3/uL (0.0-1.1); MONO % 5 % (0-9); NEUT # 6.5 x10^3uL (1.8-7.7); NEUT % 67 % (31-73); PLATELET COUNT 452 x10^3/uL (140-400); RED BLOOD COUNT 4.39 x10^6/uL (3.50-5.40); RED CELL DISTRIBUTION WIDTH 17.4 % (11.5-14.5); WHITE BLOOD COUNT 9.8 x10^3/uL (4.0-11.0)
[2018-12-12 02:53] LABS: BACTERIA,URINE 0 /HPF (0-FEW); BILIRUBIN,URINE NEG (NEG); CLARITY,URINE CLEAR; COLOR,URINE YELLOW; GLUCOSE,URINE NEG (NEG); NITRITE,URINE NEG (NEG); SQUAMOUS EPITHELIAL CELL,UR FEW /LPF; UROBILINOGEN,URINE 0.2 mg/dL (0.2 mg/dL); WBC,URINE OCC /HPF (0-4)
[2018-12-12 02:57] LABS: CALCIUM 8.7 mg/dL (8.5-10.1); CREATININE 0.7 mg/dL (0.6-1.0); GFR 86.6; MAGNESIUM 2.2 mg/dL (1.8-2.4); POTASSIUM 3.5 mmol/L (3.5-5.1)
[2018-12-12 02:58] LABS: BARBITURATES POS (NEG); BENZODIAZEPINES NEG (NEG); CANNABINOIDS NEG (NEG); COCAINE NEG (NEG); METHADONE NEG (NEG); OPIATES NEG (NEG); PHENCYCLIDINE NEG (NEG)
[2018-12-12 02:59] LABS: AMPHETAMINE/METHAMPHETAMINE NEG (NEG)
[2018-12-12] MEDS ORDERED: ACETAMINOPHEN 500 MG TABLET PO ONE (03:00)
--- NOTE | 2018-12-12 03:02 | RAD ---
CT head without contrast. CT cervical spine without contrast PQRS statement: CT scans at this facility use dose reduction including either automated exposure control, iterative reconstructions, and /or weight based radiation dosing via mA and kV modification when appropriate to reduce radiation dose to as low as reasonably achievable. HISTORY: Fall, head laceration, lump at the posterior occipital scalp. COMPARISON: CT head September 07, 2018. TECHNIQUE: Noncontrast CT imaging of the head and cervical spine multiplanar reconstructions. CT head findings: No intracranial hemorrhage, mass, hydrocephalus, extra-axial fluid collections or infarction. Orbits, mastoids, paranasal sinuses and bones are unremarkable. Occipital scalp laceration. No scalp hematoma. IMPRESSION: No acute intracranial CT abnormality. CT cervical spine findings: Craniocervical junction intact. Cervical vertebral body height and alignment intact. No fracture of the cervical spine. Lung apices and paraspinal tissues are unremarkable. IMPRESSION: No acute osseous injury of the cervical spine. Electronically signed by: Mook Byers MD (12/12/2018 2:59 AM) [facility]
[2018-12-12] MEDS ORDERED: PROCHLORPERAZINE 10 MG/2 ML VIAL. IV ONE (03:15)
[2018-12-12] MEDS ORDERED: diphenhydrAMINE 50 MG/ML VIAL IVP ONE (03:15)
[2018-12-12] MEDS ORDERED: PROCHLORPERAZINE 10 MG/2 ML VIAL. IM ONE (04:30)
[2018-12-12] MEDS ORDERED: diphenhydrAMINE 50 MG/ML VIAL IM ONE (04:30)
[2018-12-12 04:47] VITALS: BP 139/70
== END 2018-12-12 04:45 | disposition home or self-care (01) ==
LOC: ER 01:15
DX: S01.01XA Laceration without foreign body of scalp, initial encounter (principal); G40.909 Epilepsy, unspecified, not intractable, without status epilepticus; G43.909 Migraine, unspecified, not intractable, without status migrainosus; F17.210 Nicotine dependence, cigarettes, uncomplicated; Z86.73 Personal history of transient ischemic attack (TIA), and cerebral infarction without residual deficits; Z95.1 Presence of aortocoronary bypass graft; W01.198A Fall on same level from slipping, tripping and stumbling with subsequent striking against other object, initial encounter; Y93.89 Activity, other specified; Y92.89 Other specified places as the place of occurrence of the external cause; Y99.8 Other external cause status
CPT/HCPCS: 36415; 70450; 72125; 80048; 80307; 81001; 83735; 84484; 85025; 90471; 90715; 93005; 96372; 99285; G0480; J0780; J1200; J3010

== ENCOUNTER 2018-12-16 18:15 | Emergency (ER) | payer MEDICARE ==
[2018-12-16 18:33] VITALS: BP 143/81
--- NOTE | 2018-12-16 18:36 | ED.ADGEN ---
Past History Past Medical History: Anxiety, Arthritis, Seizure, Stroke, TIA, Other Additional Past Medical Histor: insomnia, patella fracture Past Surgical History: Cholecystectomy, Gastric Bypass, Hysterectomy Smoking: Cigarettes Alcohol Use: None Drug Use: None Adult General Chief Complaint Chief Complaint " I got this rash every where.. I ve tried everything... Steroid cream, A mild lotion, I even did it treatment with permethrin.. I been taking Benadryl and applying Benadryl... I even took some prednisone.... But it is still itchy... I seen Dr. Hightower... The itching is just driving me crazy" HPI HPI Patient is a 58 year old female who presents with diffuse rash- oak mite like that has been excoriated. Rash is primarily on exposed areas of body with except sent for few lesions on back. No history and changes in meds, travel, specific ill contacts. Patient normally follows with Dr. Hightower. No recent travel. No history of immunosuppression. Patient does have a history of anxiety, seizure disorder, TIA and chronic cough. Patient does continue to smoke. Review of Systems Review of Systems Constitutional: Denies fever or chills [] Eyes: Denies change in visual acuity, redness, or eye pain [] HENT: Denies nasal congestion or sore throat [] Respiratory: Complains of a chronic cough Cardiovascular: No additional information not addressed in HPI [] GI: Denies abdominal pain, nausea, vomiting, bloody stools or diarrhea [] : Denies dysuria or hematuria [] Musculoskeletal: Denies back pain or joint pain [] Integument: Primary complaint today is rash or skin lesions [] Neurologic: Denies headache, focal weakness or sensory changes [] Endocrine: Denies polyuria or polydipsia [] All other systems were reviewed and found to be within normal limits, except as documented in this note. Family History Family History Noncontributory Current Medications Current Medications Current Medications Medications (Trade) Dose Ordered Sig/Anai Start Time Stop Time Status Last Admin Dose Admin Methylprednisolone Acetate (DEPO-Medrol IM) 40 mg 1X ONCE 12/16/18 19:00 12/16/18 19:01 DC 12/16/18 18:56 40 MG See nursing for home meds Allergies Allergies Allergies Coded Allergies Type Severity Reaction Last Updated Verified No Known Allergies Allergy Unknown 12/01/17 Yes Physical Exam Physical Exam Constitutional: Moderate acute distress, non-toxic appearance. [] HENT: Normocephalic, atraumatic, bilateral external ears normal, oropharynx moist, no oral exudates, nose normal. [] Eyes: PERRLA, EOMI, conjunctiva normal, no discharge. [] Neck: Normal range of motion, no tenderness, supple, no stridor. [] Cardiovascular:Heart rate regular rhythm, no murmur [] Lungs & Thorax: Bilateral breath sounds "apex with scattered wheeze auscultation []occasionally nonproductive cough- Hx. of chronic cough Abdomen: Bowel sounds normal, soft, no tenderness, no masses, no pulsatile masses. [] Old scar. Skin: Warm, dry, erythema, rash that appears to be oak mite or scabies that has been excoriated. Rash is not present and groin area or areas covered by underwear Back: No tenderness, no CVA tenderness. [] Extremities: No tenderness, no cyanosis, no clubbing, ROM intact, no edema. [] .Arthritic Changes Neurologic: Alert and oriented X 3, normal motor function, normal sensory func tion, no focal deficits noted. [] Psychologic: Affect anxious, judgement normal, mood normal. [] Current Patient Data Vital Signs Vital Signs Date Time Temp Pulse Resp B/P (MAP) Pulse Ox O2 Delivery O2 Flow Rate FiO2 12/16/18 18:33 98.1 77 18 100 Room Air EKG EKG [] Radiology/Procedures Radiology/Procedures [][place] [address] IMAGING REPORT Signed PATIENT: FRANTZ JOE ACCOUNT: [id number] : 1960 LOCATION: ER AGE: 58 SEX: F EXAM STATUS: DEP ER ORD. PHYSICIAN: LILIBETH BEAR MD REASON: cough PROCEDURE: CHEST PA & LATERAL CHEST PA LATERAL CLINICAL INDICATION: Cough. COMPARISON: 10/21/2018 FINDINGS: Heart is normal in size. Lungs are hyperinflated. Diffuse prominent bronchial markings are seen, stable. No focal consolidation. No pneumothorax or pleural effusion. Visualized bony thorax within normal limits. IMPRESSION: Stable prominent bronchial markings may be secondary to chronic bronchitis. Electronically signed by: Rafa Venegas DO (12/16/2018 8:22 PM) [employer] DICTATED AND SIGNED BY: RAFA VENEGAS DO DATE: 12/16/182021 CC: LILIBETH BEAR MD; CHAI HIGHTOWER MD ~ No acute interval change Course & Med Decision Making Course & Med Decision Making Pertinent Labs and Imaging studies reviewed. (See chart for details) Patient to keep follow-up with Dr. Hightower. Apply only a and D ointment to the skin and massage and to areas of rash development skin drying. To repeat treatment with permethrin and leave on 8 hours and wash off in the morning repeat this treatment in 7 days. Patient informed this will make the skin itch more and can cause drying of skin. Bed clothes and clearly must be washed. For severe itching may use doxepin 50 mg 4 times a day ( warning given of marked sedation). Must keep follow-up with Dr. Hightower. Patient is not to scratch rash. If she feels she needs to scratch rash she may massage in A and D ointment. [] Final Impression Final Impression 1. Diffuse rash- oak mite versus scabies[] 2. Chronic cough 3. Tobacco use Dragon Disclaimer Dragon Disclaimer This electronic medical record was generated, in whole or in part, using a voice recognition dictation system. Dragon Disclaimer This chart was dictated in whole or in part using Voice Recognition software in a busy, high-work load, and often noisy Emergency Department environment. It may contain unintended and wholly unrecognized errors or omissions. Dragon Disclaimer This chart was dictated in whole or in part using Voice Recognition software in a busy, high-work load, and often noisy Emergency Department environment. It may contain unintended and wholly unrecognized errors or omissions. LILIBETH BEAR MD Dec 16, 2018 18:36
[2018-12-16] MEDS ORDERED: DOXE50CA PO (18:46)
[2018-12-16] MEDS ORDERED: methylPREDNISolone ACETATE 40 MG/ML VIAL. IM ONE (19:00)
--- NOTE | 2018-12-16 20:26 | RAD ---
CHEST PA LATERAL CLINICAL INDICATION: Cough. COMPARISON: 10/21/2018 FINDINGS: Heart is normal in size. Lungs are hyperinflated. Diffuse prominent bronchial markings are seen, stable. No focal consolidation. No pneumothorax or pleural effusion. Visualized bony thorax within normal limits. IMPRESSION: Stable prominent bronchial markings may be secondary to chronic bronchitis. Electronically signed by: Rafa Venegas DO (12/16/2018 8:22 PM) [facility]
== END 2018-12-16 19:29 | disposition home or self-care (01) ==
LOC: ER 18:15
DX: R21 Rash and other nonspecific skin eruption (principal); R05 Cough; L98.8 Other specified disorders of the skin and subcutaneous tissue; F41.9 Anxiety disorder, unspecified; M19.90 Unspecified osteoarthritis, unspecified site; F17.210 Nicotine dependence, cigarettes, uncomplicated; Z86.73 Personal history of transient ischemic attack (TIA), and cerebral infarction without residual deficits; Z98.84 Bariatric surgery status
CPT/HCPCS: 71046; 96372; 99284; J1030

== ENCOUNTER 2019-04-14 13:11 | Emergency (ER) | payer MEDICARE ==
[~2019-04-14] VITALS: Ht 154.9 cm; Wt 41.2 kg
[2019-04-14 13:11] VITALS: BP 148/89
[~2019-04-14 13:11] MED LIST changes: +DOXE50CA PO
[2019-04-14] MEDS ORDERED: ONDANSETRON PF 4 MG/2 ML VIAL. IV ONE (13:30)
[2019-04-14] MEDS ORDERED: IV NORMAL SALINE 1,000ML 1,000 ML IV ONE (13:30)
[2019-04-14 14:04] LABS: BASO % 1 % (0-3); EOS # 0.1 x10^3/uL (0.0-0.7); EOS % 2 % (0-3); HEMATOCRIT 39.9 % (36.0-47.0); HEMOGLOBIN 13.6 g/dL (12.0-15.5); LYMPH # 1.1 x10^3/uL (1.0-4.8); LYMPH % 18 % (24-48); MEAN CORPUSCULAR HEMOGLOBIN 32 pg (25-35); MEAN CORPUSCULAR HGB CONC 34 g/dL (31-37); MEAN CORPUSCULAR VOLUME 95 fL (79-100); MONO # 0.3 x10^3/uL (0.0-1.1); MONO % 5 % (0-9); NEUT # 4.7 x10^3uL (1.8-7.7); NEUT % 75 % (31-73); PLATELET COUNT 389 x10^3/uL (140-400); RED CELL DISTRIBUTION WIDTH 17.7 % (11.5-14.5); WHITE BLOOD COUNT 6.3 x10^3/uL (4.0-11.0)
[2019-04-14 14:10] LABS: CALCIUM 8.3 mg/dL (8.5-10.1); CREATININE 0.8 mg/dL (0.6-1.0); GFR 74.2; POTASSIUM 3.5 mmol/L (3.5-5.1)
[2019-04-14 14:16] LABS: ALBUMIN 3.3 g/dL (3.4-5.0); ALBUMIN/GLOBULIN RATIO 1.1 (1.0-1.7); TOTAL BILIRUBIN 0.3 mg/dL (0.2-1.0); TOTAL PROTEIN 6.2 g/dL (6.4-8.2)
[2019-04-14] MEDS ORDERED: VANCOMYCIN 125 MG/2.5 ML ORAL SOLUTION. PO ONE (15:00)
--- NOTE | 2019-04-14 15:53 | PHYS DOC ---
Past History Past Medical History: Anxiety, Arthritis, Seizure, Stroke, TIA, Other Additional Past Medical Histor: insomnia, patella fracture,c diff Past Surgical History: Other Smoking: Cigarettes Alcohol Use: None Drug Use: None Adult General Chief Complaint Chief Complaint: DIARRHEA HPI HPI Patient is a [58 show female presenting with diarrhea for the last week mostly yellow in color no black no blood although she hasn't seen every single one. She just feels a little weak she's having abdominal cramping but no sharp pains at this time she does have a history of C. difficile so she wanted to be checked out to make sure she is okay no recent antibiotics this the symptoms are not as severe as when she had C. difficile but she's lost a few pounds this week so she is concerned no fever that she knows of. No other complaints no chest pain Review of Systems Review of Systems Constitutional: Denies fever or chills [] Eyes: Denies change in visual acuity, redness, or eye pain [] Integument: Denies rash or skin lesions [] Neurologic: Denies headache, focal weakness or sensory changes [] All other systems were reviewed and found to be within normal limits, except as documented in this note. Current Medications Current Medications Current Medications Medications (Trade) Dose Ordered Sig/Anai Start Time Stop Time Status Last Admin Dose Admin Ondansetron HCl (Zofran) 4 mg 1X ONCE 04/14/19 13:30 04/14/19 13:32 DC 04/14/19 13:50 4 MG Sodium Chloride 1,000 ml @ 1,000 mls/hr 1X ONCE 04/14/19 13:30 04/14/19 14:29 DC 04/14/19 13:50 1,000 MLS/HR Vancomycin HCl (Vancomycin Oral Solution) 125 mg 1X ONCE 04/14/19 15:00 04/14/19 15:01 DC 04/14/19 15:00 125 MG Allergies Allergies Allergies Coded Allergies Type Severity Reaction Last Updated Verified No Known Allergies Allergy Unknown 12/01/17 Yes Physical Exam Physical Exam Constitutional: Well developed, well nourished, cachectic HENT: Normocephalic, atraumatic, bilateral external ears normal, oropharynx dry, no oral exudates, nose normal. [] Eyes: PERRLA, EOMI, conjunctiva normal, no discharge. [] Neck: Normal range of motion, no tenderness, supple, no stridor. [] Pulmonary: Normal respiratory effort no increased work of breathing no obvious chest wall trauma Abdomen: Bowel sounds normal, soft, no tenderness, no masses, no pulsatile masses. [] Skin: Warm, dry, no erythema, no rash. [] Back: No tenderness, no CVA tenderness. [] Extremities: No tenderness, no cyanosis, no clubbing, ROM intact, no edema. [] Neurologic: Alert and oriented X 3, normal motor function, normal sensory function, no focal deficits noted. [] Psychologic: Affect normal, judgement normal, mood normal. [] Current Patient Data Vital Signs Vital Signs Date Time Temp Pulse Resp B/P (MAP) Pulse Ox O2 Delivery O2 Flow Rate FiO2 04/14/19 13:11 89.3 93 16 97 Room Air The temperature is not 89.3 units 98.6 on my evaluation the blood pressure was in the 140s systolic Lab Results Laboratory Tests Test 04/14/19 13:45 White Blood Count 6.3 x10^3/uL (4.0-11.0) Red Blood Count 4.20 x10^6/uL (3.50-5.40) Hemoglobin 13.6 g/dL (12.0-15.5) Hematocrit 39.9 % (36.0-47.0) Mean Corpuscular Volume 95 fL (79-100) Mean Corpuscular Hemoglobin 32 pg (25-35) Mean Corpuscular Hemoglobin Concent 34 g/dL (31-37) Red Cell Distribution Width 17.7 % (11.5-14.5) H Platelet Count 389 x10^3/uL (140-400) Neutrophils (%) (Auto) 75 % (31-73) H Lymphocytes (%) (Auto) 18 % (24-48) L Monocytes (%) (Auto) 5 % (0-9) Eosinophils (%) (Auto) 2 % (0-3) Basophils (%) (Auto) 1 % (0-3) Neutrophils # (Auto) 4.7 x10^3uL (1.8-7.7) Lymphocytes # (Auto) 1.1 x10^3/uL (1.0-4.8) Monocytes # (Auto) 0.3 x10^3/uL (0.0-1.1) Eosinophils # (Auto) 0.1 x10^3/uL (0.0-0.7) Basophils # (Auto) 0.0 x10^3/uL (0.0-0.2) Sodium Level 143 mmol/L (136-145) Potassium Level 3.5 mmol/L (3.5-5.1) Chloride Level 107 mmol/L (98-107) Carbon Dioxide Level 27 mmol/L (21-32) Anion Gap 9 (6-14) Blood Urea Nitrogen 10 mg/dL (7-20) Creatinine 0.8 mg/dL (0.6-1.0) Estimated GFR (Cockcroft-Gault) 74.2 BUN/Creatinine Ratio 13 (6-20) Glucose Level 74 mg/dL (70-99) Calcium Level 8.3 mg/dL (8.5-10.1) L Magnesium Level 2.0 mg/dL (1.8-2.4) Total Bilirubin 0.3 mg/dL (0.2-1.0) Aspartate Amino Transferase (AST) 16 U/L (15-37) Alanine Aminotransferase (ALT) 22 U/L (14-59) Alkaline Phosphatase 88 U/L (46-116) Total Protein 6.2 g/dL (6.4-8.2) L Albumin 3.3 g/dL (3.4-5.0) L Albumin/Globulin Ratio 1.1 (1.0-1.7) Lipase 133 U/L (73-393) EKG EKG [] Radiology/Procedures Radiology/Procedures [] Course & Med Decision Making Course & Med Decision Making Pertinent Labs and Imaging studies reviewed. (See chart for details) []This is a 58-year-old female with known history of C. difficile diarrhea 1 week in the emergency room she was not able to produce any stool her vital signs and clinical picture are overall reassuring this could be a viral etiology but I did give her a prescription for oral Vanco solution just in case of C. difficile and recommended that she follow up next week definitely to obtain a stool culture by primary doctor since we have not been able to obtain one here she did not make any stool while here. I think she is safe for outpatient management she agrees. Discharge home Dragon Disclaimer Dragon Disclaimer This electronic medical record was generated, in whole or in part, using a voice recognition dictation system. Departure Departure: Impression: Primary Impression: Diarrhea Disposition: 01 HOME, SELF-CARE Condition: STABLE Patient Instructions: Diarrhea, [id number] Additional Instructions: go to primary care for stool culture CASSIE KOEHLER MD Apr 14, 2019 15:53
== END 2019-04-14 15:23 | disposition home or self-care (01) ==
LOC: ER 13:11
DX: R19.7 Diarrhea, unspecified (principal); F17.210 Nicotine dependence, cigarettes, uncomplicated; F41.9 Anxiety disorder, unspecified; M19.90 Unspecified osteoarthritis, unspecified site; Z86.73 Personal history of transient ischemic attack (TIA), and cerebral infarction without residual deficits
CPT/HCPCS: 36415; 80053; 83690; 83735; 85025; 96361; 96374; 99284; J2405; J7030